=== PATIENT | male | born 1955 | race Caucasian/White ===

== ENCOUNTER → 2017-01-07 | Outpatient (REF) | payer BC, OTHER ==
[2017-01-07 12:20] LABS: BASO % 0.5 % (0.0-1.0); EOS # 0.3 K/mm3 (0.0-0.50); EOS % 3.7 % (0.0-3.0); LARGE UNSTAINED CELL # 0.3 K/mm3 (0.0-0.4); LARGE UNSTAINED CELL % 2.8 % (0.0-4.0); LYMPH # 2.8 K/mm3 (1.5-4.5); LYMPH % 28.4 % (24.0-44.0); MEAN CORPUSCULAR HEMOGLOBIN 33.1 pg (27.0-33.0); MEAN CORPUSCULAR HGB CONC 32.5 g/dl (32.0-36.5); MEAN CORPUSCULAR VOLUME 101.8 fl (80.0-96.0); MONO # 0.6 K/mm3 (0.0-0.8); MONO % 6.3 % (0.0-5.0); NEUTROPHILS # 5.2 K/mm3 (1.8-7.7); NEUTROPHILS % 58.3 % (36.0-66.0); PLATELET COUNT, AUTOMATED 183 k/mm3 (150-450); RED CELL DISTRIBUTION WIDTH 13.9 % (11.5-14.5); WHITE BLOOD COUNT 8.8 K/mm3 (4.0-10.0)
[2017-01-07 12:51] LABS: ALBUMIN 3.6 GM/DL (3.2-5.2); ALBUMIN/GLOBULIN RATIO 1.24 (1.00-1.93); ALKALINE PHOSPHATASE 116 U/L (45-117); ALT/SGPT 50 U/L (12-78); ANION GAP 8 MEQ/L (8-16); AST/SGOT 23 U/L (15-37); BILIRUBIN,TOTAL 0.4 MG/DL (0.2-1.0); BLOOD UREA NITROGEN 21 MG/DL (7-18); CALCIUM LEVEL 8.2 MG/DL (8.5-10.1); CARBON DIOXIDE LEVEL 28 MEQ/L (21-32); CHLORIDE LEVEL 105 MEQ/L (98-107); CHOLESTEROL LEVEL 154 MG/DL (<200); GLOMERULAR FILTRATION RATE > 60.0 (>56); GLUCOSE, FASTING 97 MG/DL (70-105); POTASSIUM SERUM 4.6 MEQ/L (3.5-5.1); SODIUM LEVEL 141 MEQ/L (136-145); TOTAL PROTEIN 6.5 GM/DL (6.4-8.2); TRIGLYCERIDES LEVEL 134 MG/DL (<150)
== END ==
LOC: M LABDRAW1 11:59
PROVIDERS: ATTEND Emergency Medicine
DX: L03.116 Cellulitis of left lower limb (principal); R73.01 Impaired fasting glucose; E78.2 Mixed hyperlipidemia; I10 Essential (primary) hypertension

== ENCOUNTER → 2017-07-11 | Outpatient (REF) | payer BC ==
[2017-07-11 13:05] LABS: ALBUMIN/GLOBULIN RATIO 1.11 (1.00-1.93); ALKALINE PHOSPHATASE 291 U/L (45-117); ALT/SGPT 167 U/L (12-78); ANION GAP 6 MEQ/L (8-16); AST/SGOT 50 U/L (15-37); BILIRUBIN,TOTAL 0.7 MG/DL (0.2-1.0); BLOOD UREA NITROGEN 13 MG/DL (7-18); CALCIUM LEVEL 8.9 MG/DL (8.8-10.2); CARBON DIOXIDE LEVEL 30 MEQ/L (21-32); CHLORIDE LEVEL 102 MEQ/L (98-107); CHOLESTEROL LEVEL 143 MG/DL (<200); CREATININE FOR GFR 1.19 MG/DL (0.70-1.30); GLOMERULAR FILTRATION RATE > 60.0 (>49); GLUCOSE, FASTING 110 MG/DL (80-110); POTASSIUM SERUM 4.7 MEQ/L (3.5-5.1); SODIUM LEVEL 138 MEQ/L (136-145); TOTAL PROTEIN 7.6 GM/DL (6.4-8.2); TRIGLYCERIDES LEVEL 182 MG/DL (<150)
== END ==
LOC: M LABDRAW1 09:36
PROVIDERS: ATTEND Emergency Medicine
DX: R73.01 Impaired fasting glucose (principal); I10 Essential (primary) hypertension; E78.2 Mixed hyperlipidemia

== ENCOUNTER → 2018-01-13 | Outpatient (REF) | payer BC ==
[2018-01-13 11:03] LABS: BASO # 0.1 10^3/uL (0.0-0.2); BASO % 0.6 % (0.0-1.0); EOS # 0.3 10^3/uL (0.0-0.50); EOS % 2.9 % (0.0-3.0); HEMATOCRIT 55.1 % (42.0-52.0); HEMOGLOBIN 19.1 g/dl (13.5-17.5); IMMATURE GRANULOCYTE % 0.5 % (0-3.0); LYMPH # 3.3 10^3/uL (1.5-4.5); LYMPH % 35.1 % (24.0-44.0); MEAN CORPUSCULAR HEMOGLOBIN 33.9 pg (27.0-33.0); MEAN CORPUSCULAR HGB CONC 34.7 g/dl (32.0-36.5); MEAN CORPUSCULAR VOLUME 97.9 fl (80.0-96.0); MONO # 0.6 10^3/uL (0.0-0.8); MONO % 6.9 % (0.0-5.0); PLATELET COUNT, AUTOMATED 206 10^3/uL (150-450); RED BLOOD COUNT 5.63 10^6/uL (4.30-6.10); RED CELL DISTRIBUTION WIDTH 13.8 % (11.5-14.5); WHITE BLOOD COUNT 9.3 10^3/uL (4.0-10.0)
[2018-01-13 11:20] LABS: ESTIMATED AVERAGE GLUCOSE 128 MG/DL (60-110); HEMOGLOBIN A1c 6.1 %
[2018-01-13 11:25] LABS: ALBUMIN/GLOBULIN RATIO 1.18 (1.00-1.93); ALKALINE PHOSPHATASE 116 U/L (45-117); ALT/SGPT 29 U/L (12-78); ANION GAP 7 MEQ/L (8-16); AST/SGOT 18 U/L (7-37); BILIRUBIN,TOTAL 0.8 MG/DL (0.2-1.0); BLOOD UREA NITROGEN 25 MG/DL (7-18); CALCIUM LEVEL 8.8 MG/DL (8.8-10.2); CARBON DIOXIDE LEVEL 27 MEQ/L (21-32); CHLORIDE LEVEL 103 MEQ/L (98-107); CHOLESTEROL LEVEL 186 MG/DL (<200); CHOLESTEROL RISK RATIO 4.894 (<5); CREATININE FOR GFR 1.12 MG/DL (0.70-1.30); GLOMERULAR FILTRATION RATE > 60.0 (>49); GLUCOSE, FASTING 108 MG/DL (70-100); HDL CHOLESTEROL 38 MG/DL (>40); LDL CHOLESTEROL 117.2 MG/DL (<100); NON-HDL-C 148 MG/DL; POTASSIUM SERUM 4.5 MEQ/L (3.5-5.1); SODIUM LEVEL 137 MEQ/L (136-145); TOTAL PROTEIN 7.4 GM/DL (6.4-8.2); TRIGLYCERIDES LEVEL 154 MG/DL (<150)
== END ==
LOC: M LABDRAW1 09:12
DX: L03.116 Cellulitis of left lower limb (principal); R73.01 Impaired fasting glucose; I10 Essential (primary) hypertension; E78.2 Mixed hyperlipidemia
CPT/HCPCS: 80053

== ENCOUNTER → 2018-07-17 | Outpatient (REF) | payer BC ==
[2018-07-17 11:46] LABS: BASO # 0.1 10^3/uL (0.0-0.2); BASO % 0.7 % (0.0-1.0); EOS # 0.2 10^3/uL (0.0-0.50); EOS % 2.6 % (0.0-3.0); HEMATOCRIT 50.8 % (42.0-52.0); HEMOGLOBIN 17.3 g/dl (13.5-17.5); IMMATURE GRANULOCYTE % 0.5 % (0-3.0); LYMPH # 2.5 10^3/uL (1.5-4.5); LYMPH % 30.2 % (24.0-44.0); MEAN CORPUSCULAR HEMOGLOBIN 33.7 pg (27.0-33.0); MEAN CORPUSCULAR HGB CONC 34.1 g/dl (32.0-36.5); MONO # 0.7 10^3/uL (0.0-0.8); MONO % 8.8 % (0.0-5.0); NEUTROPHILS # 4.8 10^3/uL (1.8-7.7); NEUTROPHILS % 57.2 % (36.0-66.0); PLATELET COUNT, AUTOMATED 180 10^3/uL (150-450); RED BLOOD COUNT 5.13 10^6/uL (4.30-6.10); RED CELL DISTRIBUTION WIDTH 13.8 % (11.5-14.5); WHITE BLOOD COUNT 8.3 10^3/uL (4.0-10.0)
[2018-07-17 12:48] LABS: ALBUMIN 3.6 GM/DL (3.2-5.2); ALBUMIN/GLOBULIN RATIO 1.16 (1.00-1.93); ALKALINE PHOSPHATASE 114 U/L (45-117); ALT/SGPT 25 U/L (12-78); ANION GAP 8 MEQ/L (8-16); AST/SGOT 20 U/L (7-37); BILIRUBIN,TOTAL 0.5 MG/DL (0.2-1.0); BLOOD UREA NITROGEN 25 MG/DL (7-18); CALCIUM LEVEL 8.5 MG/DL (8.8-10.2); CARBON DIOXIDE LEVEL 25 MEQ/L (21-32); CHLORIDE LEVEL 105 MEQ/L (98-107); CHOLESTEROL LEVEL 168 MG/DL (<200); CREATININE FOR GFR 1.05 MG/DL (0.70-1.30); GLOMERULAR FILTRATION RATE > 60.0 (>49); GLUCOSE, FASTING 170 MG/DL (70-100); HDL CHOLESTEROL 35 MG/DL (>40); LDL CHOLESTEROL 102 MG/DL (<100); NON-HDL-C 133 MG/DL; POTASSIUM SERUM 4.1 MEQ/L (3.5-5.1); SODIUM LEVEL 138 MEQ/L (136-145); TOTAL PROTEIN 6.7 GM/DL (6.4-8.2); TRIGLYCERIDES LEVEL 154 MG/DL (<150)
[2018-07-17 13:34] LABS: ESTIMATED AVERAGE GLUCOSE 134 MG/DL (60-110); HEMOGLOBIN A1c 6.3 %
== END ==
LOC: M LABDRAW1 11:12
DX: L03.116 Cellulitis of left lower limb (principal); R73.01 Impaired fasting glucose; I10 Essential (primary) hypertension; E78.2 Mixed hyperlipidemia
CPT/HCPCS: 80053

== ENCOUNTER → 2018-07-25 | Outpatient (REF) | payer BC | LOC: M LAB REF 09:19 | DX: Z86.010 Personal history of colon polyps (principal) | CPT/HCPCS: 87507 ==

== ENCOUNTER → 2018-07-25 | Outpatient (REF) | payer BC ==
[2018-07-27 00:07] LABS: TISSUE TRANSGLUTAMINASE IgA <2 U/mL (0-3)
== END ==
LOC: M LABDRAW1 12:17
DX: Z86.010 Personal history of colon polyps (principal)

== ENCOUNTER → 2018-08-08 | Outpatient (CLI) | payer BC | LOC: M RAD 07:27 | DX: Z12.2 Encounter for screening for malignant neoplasm of respiratory organs (principal); Z87.891 Personal history of nicotine dependence | CPT/HCPCS: G0297 ==

== ENCOUNTER 2018-09-07 08:25 | Day surgery (SDC) | payer BC ==
[~2018-09-07] VITALS: Ht 182.9 cm; Wt 127.5 kg
[~2018-09-07 08:25] MED LIST: LISI20TA PO; MULTCAP PO; NS 1,000 ML IV ONE; PROPOFOL 200 MG/20 ML VIAL As Ordered ONE; SIMV20TA2 PO
--- NOTE | 2018-09-07 10:16 | ROOR ---
Patient Name: Caleb Farley Procedure Date: 09/07/2018 9:53 AM Date of : 1955 Age: 63 [facility]: [facility] Gender: Male Note Status: Finalized Procedure: Colonoscopy Indications: High risk colon cancer surveillance: Personal history of colonic polyps, Last colonoscopy: June 2014 Providers: Curry BHARDWAJ MD Referring MD: ROSI REED MD Requesting Provider: Medicines: Monitored Anesthesia Care Complications: No immediate complications. Procedure: Pre-Anesthesia Assessment: - The heart rate, respiratory rate, oxygen saturations, blood pressure, adequacy of pulmonary ventilation, and response to care were monitored throughout the procedure. The Colonoscope was introduced through the anus and advanced to the terminal ileum, with identification of the appendiceal orifice and IC valve. The colonoscopy was performed without difficulty. The patient tolerated the procedure well. The quality of the bowel preparation was good. Findings: The perianal and digital rectal examinations were normal. Two sessile polyps were found in the sigmoid colon. The polyps were 4 to 5 mm in size. These polyps were removed with a cold snare. Resection and retrieval were complete. Internal hemorrhoids were found during retroflexion. The hemorrhoids were small. The exam was otherwise without abnormality on direct and retroflexion views. Impression: - Two 4 to 5 mm polyps in the sigmoid colon, removed with a cold snare. Resected and retrieved. - Internal hemorrhoids. - The examination was otherwise normal on direct and retroflexion views. Recommendation: - Repeat colonoscopy in 5 years for adenoma surveillance. Curry Bhardwaj MD Curry BHARDWAJ MD 09/07/2018 10:15:50 AM This report has been signed electronically. Number of Addenda: 0 Note Initiated On: 09/07/2018 9:53 AM Estimated Blood Loss: Estimated blood loss: none.
[2018-09-07 10:30] VITALS: BP 131/85
[2018-09-07] MEDS ORDERED: PROPOFOL 200 MG/20 ML VIAL As Ordered ONE (10:32)
== END 2018-09-07 10:32 | disposition home or self-care (01) ==
LOC: M OPP 08:25
PROVIDERS: ATTEND Internal Medicine Gastroenterology
DX: D12.5 Benign neoplasm of sigmoid colon (principal); K64.8 Other hemorrhoids; Z86.010 Personal history of colon polyps

== ENCOUNTER → 2019-01-15 | Outpatient (REF) | payer BC ==
[~2019-01-15] MED LIST changes: -NS 1,000 ML IV ONE; -PROPOFOL 200 MG/20 ML VIAL As Ordered ONE
[2019-01-15 11:57] LABS: BASO # 0.1 10^3/uL (0.0-0.2); BASO % 0.6 % (0.0-1.0); EOS # 0.2 10^3/uL (0.0-0.50); EOS % 2.4 % (0.0-3.0); HEMATOCRIT 53.7 % (42.0-52.0); HEMOGLOBIN 18.3 g/dl (13.5-17.5); LYMPH # 3.4 10^3/uL (1.5-4.5); LYMPH % 35.5 % (24.0-44.0); MEAN CORPUSCULAR HEMOGLOBIN 33.6 pg (27.0-33.0); MEAN CORPUSCULAR HGB CONC 34.1 g/dl (32.0-36.5); MEAN CORPUSCULAR VOLUME 98.7 fl (80.0-96.0); MONO # 0.7 10^3/uL (0.0-0.8); MONO % 7.5 % (0.0-5.0); NEUTROPHILS # 5.2 10^3/uL (1.8-7.7); NEUTROPHILS % 53.6 % (36.0-66.0); PLATELET COUNT, AUTOMATED 207 10^3/uL (150-450); RED BLOOD COUNT 5.44 10^6/uL (4.30-6.10); WHITE BLOOD COUNT 9.7 10^3/uL (4.0-10.0)
[2019-01-15 12:26] LABS: ALBUMIN 3.9 GM/DL (3.2-5.2); ALT/SGPT 26 U/L (12-78); BILIRUBIN,TOTAL 0.6 MG/DL (0.2-1.0); BLOOD UREA NITROGEN 23 MG/DL (7-18); CALCIUM LEVEL 8.6 MG/DL (8.8-10.2); CARBON DIOXIDE LEVEL 29 MEQ/L (21-32); CHLORIDE LEVEL 103 MEQ/L (98-107); CHOLESTEROL LEVEL 184 MG/DL (<200); CHOLESTEROL RISK RATIO 5.411 (<5); CREATININE FOR GFR 1.17 MG/DL (0.70-1.30); GLOMERULAR FILTRATION RATE > 60.0 (>49); GLUCOSE, FASTING 99 MG/DL (70-100); HDL CHOLESTEROL 34 MG/DL (>40); LDL CHOLESTEROL 109 MG/DL (<100); NON-HDL-C 150 MG/DL; POTASSIUM SERUM 4.7 MEQ/L (3.5-5.1); SODIUM LEVEL 135 MEQ/L (136-145); TRIGLYCERIDES LEVEL 207 MG/DL (<150)
[2019-01-15 13:54] LABS: HEMOGLOBIN A1c 6.5 %
== END ==
LOC: M LABDRAW1 11:41
PROVIDERS: ATTEND Emergency Medicine
DX: L03.116 Cellulitis of left lower limb (principal); R73.01 Impaired fasting glucose; I10 Essential (primary) hypertension; E78.2 Mixed hyperlipidemia

== ENCOUNTER 2019-03-19 08:01 | Emergency (ER) | payer BC ==
[~2019-03-19] VITALS: Ht 172.7 cm; Wt 134.0 kg
[2019-03-19] MEDS ORDERED: ASPIRIN 81 MG CHEW TABLET PO ONE (08:30)
--- NOTE | 2019-03-19 08:36 | REP ---
Portable chest, 08:20 a.m., 03/19/2019, single AP view with the patient upright: Comparison is the low-dose lung screening chest CT dated 08/08/2018. There are no other comparison studies. There is diffuse bilateral interstitial coarsening as an interval change, compatible with interstitial infiltrates. There are no pleural effusions. There are no focal infiltrates. Cardiac size is normal. The shun, mediastinum, skeletal structures are unremarkable. Impression: Diffuse bilateral interstitial coarsening as a change from the comparison chest CT, compatible with interstitial infiltrates. Electronically Signed by Dexter Ulloa MD 03/19/2019 08:27 A
[2019-03-19 08:40] LABS: BASO # 0.1 10^3/uL (0.0-0.2); BASO % 0.4 % (0.0-1.0); EOS # 0.1 10^3/uL (0.0-0.50); EOS % 0.6 % (0.0-3.0); HEMATOCRIT 48.1 % (42.0-52.0); HEMOGLOBIN 16.2 g/dl (13.5-17.5); LYMPH # 2.7 10^3/uL (1.5-4.5); LYMPH % 15.2 % (24.0-44.0); MEAN CORPUSCULAR HEMOGLOBIN 33.1 pg (27.0-33.0); MEAN CORPUSCULAR HGB CONC 33.7 g/dl (32.0-36.5); MEAN CORPUSCULAR VOLUME 98.4 fl (80.0-96.0); MONO # 1.3 10^3/uL (0.0-0.8); MONO % 7.1 % (0.0-5.0); NEUTROPHILS # 13.6 10^3/uL (1.8-7.7); NEUTROPHILS % 76.1 % (36.0-66.0); PLATELET COUNT, AUTOMATED 212 10^3/uL (150-450); RED BLOOD COUNT 4.89 10^6/uL (4.30-6.10); WHITE BLOOD COUNT 17.8 10^3/uL (4.0-10.0)
[2019-03-19] MEDS ORDERED: FUROSEMIDE 40 MG/4 ML VIAL (J1940) IV ONE (08:45)
[2019-03-19 08:50] LABS: INR 1.04; PROTHROMBIN TIME 13.3 SECONDS (11.8-14.0)
[2019-03-19 08:51] LABS: PARTIAL THROMBOPLASTIN TIME 31.5 SECONDS (25.0-38.4)
--- NOTE | 2019-03-19 09:32 | REP ---
Right lower extremity deep vein duplex ultrasound: The patient complains of shortness of breath for 6 months becoming worse over the past week and right lower extremity swelling. The right lower extremity deep veins demonstrate normal compression, normal Doppler color flow and normal Doppler waveforms with respiration and augmentation from the popliteal vein to the common femoral vein. Impression: There is no right lower extremity deep vein thrombus. Electronically Signed by Dexter Ulloa MD 03/19/2019 09:24 A
[2019-03-19 09:34] LABS: ALBUMIN 3.7 GM/DL (3.2-5.2); BILIRUBIN,TOTAL 0.8 MG/DL (0.2-1.0); CALCIUM LEVEL 8.7 MG/DL (8.8-10.2); CK-MB VALUE MASS 20.8 NG/ML (<3.6); CREATININE FOR GFR 1.33 MG/DL (0.70-1.30); MB/CK RELATIVE INDEX 10.05 (< OR =4); POTASSIUM SERUM 4.4 MEQ/L (3.5-5.1); TOTAL PROTEIN 7.8 GM/DL (6.4-8.2); TROPONIN I 2.23 NG/ML (< 0.10)
[2019-03-19] MEDS ORDERED: HEPARIN SOD (PORCINE) 5000 UNITS/ML VIAL IV ONE (09:45)
[2019-03-19] MEDS ORDERED: HEPARIN DRIP 25,000 UNITS in APPROPRIATE DILUENT 1 EA IV SCH (10:00)
[2019-03-19] MEDS ORDERED: CLOPIDOGREL 300 MG TAB (PLAVIX) PO STA (10:08)
[2019-03-19] MEDS ORDERED: fentaNYL 100 MCG/2 ML INJECTION (J3010) IV ONE (10:45)
[2019-03-19 11:45] VITALS: BP 99/51
--- NOTE | 2019-03-22 05:41 | ECGEPIP ---
[facility] - ED Test Date: 2019-03-19 Pat Name: IFTIKHAR DUMONT Department: Room: - Gender: Male Referral Nurse: TAZ : 1955 Requested By: Heri Carbone Order Number: [id number] Reading MD: Heri Hanks Measurements Intervals [place] Rate: 106 P: MO: -1 QRS: QRSD: 147 T: 42 QT: 376 QTc: 500 Interpretive Statements ATRIAL FIBRILLATION WITH RAPID VENTRICULAR RESPONSE LEFT BUNDLE BRANCH BLOCK BASELINE ARTIFACT AFFECTS INTERPRETATION NO PRIORS FOR COMPARISON Electronically Signed on 03-22-2019 5:41:23 EDT by Heri Hanks
== END 2019-03-19 11:55 | disposition short-term general hospital (02) ==
LOC: M ED 08:01
DX: I21.4 Non-ST elevation (NSTEMI) myocardial infarction (principal); I44.7 Left bundle-branch block, unspecified; I48.91 Unspecified atrial fibrillation; I50.9 Heart failure, unspecified; M79.89 Other specified soft tissue disorders; I11.0 Hypertensive heart disease with heart failure; E78.5 Hyperlipidemia, unspecified; F17.210 Nicotine dependence, cigarettes, uncomplicated; Z79.899 Other long term (current) drug therapy
CPT/HCPCS: 36415; 71045; 80053; 82550; 82553; 83690; 83880; 84484; 85025; 85610; 85730; 93005; 93041; 93971; 94760; 96374; 96375; 99285; J1940; J3010

== ENCOUNTER 2019-04-05 18:10 | Inpatient (IN) | payer BC ==
[~2019-04-05] VITALS: Ht 175.3 cm; Wt 127.8 kg
[2019-04-05] MEDS ORDERED: ONDANSETRON 4 MG TAB (S0181) PO PRN (18:30)
[2019-04-05] MEDS ORDERED: ALPRAZolam 0.25 MG TAB PO PRN (18:30)
[2019-04-05] MEDS ORDERED: ACETAMINOPHEN TAB 650MG DOSE (2X325MG) PO PRN (18:30)
[2019-04-05 18:50] VITALS: BP 113/51
[2019-04-05] MEDS ORDERED: ACET1TAB55 PO (20:43)
[2019-04-05] MEDS ORDERED: CLOT10TR PO (20:43)
[2019-04-05] MEDS ORDERED: DIGO0.12 PO (20:43)
[2019-04-05] MEDS ORDERED: ALPR0.25 PO (20:43)
[2019-04-05] MEDS ORDERED: ECOT81TA5 PO (20:43)
[2019-04-05] MEDS ORDERED: AMIO200T PO (20:43)
[2019-04-05] MEDS ORDERED: ASCO500T PO (20:43)
[2019-04-05] MEDS ORDERED: FERR325T16 PO (20:43)
[2019-04-05] MEDS ORDERED: MM S100C PO (20:43)
[2019-04-05] MEDS ORDERED: POTA10TA17 PO (20:46)
[2019-04-05] MEDS ORDERED: WARF-20 PO (20:46)
[2019-04-05] MEDS ORDERED: NICO21DI37 TD (20:46)
[2019-04-05] MEDS ORDERED: FURO20TA2 PO (20:46)
[2019-04-05] MEDS ORDERED: METO1TAB87 PO (20:46)
[2019-04-05] MEDS ORDERED: FOLI1TAB11 PO (20:46)
[2019-04-05] MEDS: SENNA 8.6 MG TAB (SENOKOT) PO SCH (21:00)
[2019-04-05] MEDS ORDERED: WARFARIN SOD 4 MG TAB PO ONE (21:00)
[2019-04-05] MEDS: DOCUSATE SODIUM 100 MG CAP PO SCH (21:00)
[2019-04-05 22:00] VITALS: BP 132/61
[2019-04-05] MEDS: traZODone 50 MG TAB PO SCH (22:39)
[2019-04-05] MEDS: SIMVASTATIN 20 MG TAB PO SCH (22:39)
[2019-04-05] MEDS: METOPROLOL TART 25 MG TABLET PO SCH (22:41)
[2019-04-05] MEDS: FERROUS GLUCONATE 324 MG TAB PO SCH (22:42)
[2019-04-05] MEDS: CLOTRIMAZOLE 10 MG TROCHE PO SCH (22:43)
[2019-04-06 06:00] VITALS: BP 113/52
[2019-04-06] MEDS: CLOTRIMAZOLE 10 MG TROCHE PO SCH ×5 (06:20→21:22)
[2019-04-06 07:08] LABS: BASO # 0.1 10^3/uL (0.0-0.2); BASO % 0.7 % (0.0-1.0); EOS # 0.2 10^3/uL (0.0-0.50); EOS % 2.4 % (0.0-3.0); HEMATOCRIT 26.6 % (42.0-52.0); HEMOGLOBIN 8.4 g/dl (13.5-17.5); LYMPH # 1.9 10^3/uL (1.5-4.5); LYMPH % 21.4 % (24.0-44.0); MEAN CORPUSCULAR HEMOGLOBIN 32.1 pg (27.0-33.0); MEAN CORPUSCULAR HGB CONC 31.6 g/dl (32.0-36.5); MEAN CORPUSCULAR VOLUME 101.5 fl (80.0-96.0); MONO # 0.7 10^3/uL (0.0-0.8); MONO % 7.5 % (0.0-5.0); NEUTROPHILS # 6.1 10^3/uL (1.8-7.7); PLATELET COUNT, AUTOMATED 462 10^3/uL (150-450); RED BLOOD COUNT 2.62 10^6/uL (4.30-6.10); WHITE BLOOD COUNT 9.1 10^3/uL (4.0-10.0)
[2019-04-06 07:18] LABS: INR 1.94; PROTHROMBIN TIME 21.9 SECONDS (11.8-14.0)
[2019-04-06 07:31] LABS: ALBUMIN 2.8 GM/DL (3.2-5.2); BILIRUBIN,TOTAL 0.5 MG/DL (0.2-1.0); CALCIUM LEVEL 8.1 MG/DL (8.8-10.2); CREATININE FOR GFR 1.81 MG/DL (0.70-1.30); GLOMERULAR FILTRATION RATE 40.6 (>49); POTASSIUM SERUM 4.1 MEQ/L (3.5-5.1); TOTAL PROTEIN 6.5 GM/DL (6.4-8.2)
[2019-04-06] MEDS: PANTOPRAZOLE 40MG TAB (PROTONIX) PO SCH (08:34)
[2019-04-06] MEDS: ASCORBIC ACID 500 MG TAB PO SCH (08:34)
[2019-04-06] MEDS: ASPIRIN 81 MG CHEW TABLET PO SCH (08:34)
[2019-04-06] MEDS: FOLIC ACID 1 MG TAB PO SCH (08:34)
[2019-04-06] MEDS: FERROUS GLUCONATE 324 MG TAB PO SCH ×2 (08:35→21:22)
[2019-04-06] MEDS: POTASSIUM CHLORIDE 10 MEQ SR TABLET PO SCH (08:35)
[2019-04-06] MEDS: AMIODARONE 200 MG TAB (PACERONE) PO SCH (08:35)
[2019-04-06] MEDS: DOCUSATE SODIUM 100 MG CAP PO SCH ×2 (08:35→21:00)
[2019-04-06] MEDS: METOPROLOL TART 25 MG TABLET PO SCH ×2 (08:36→21:22)
[2019-04-06] MEDS: NICOTINE 21MG/24HR 1 EA TRANSDERMAL TD SCH (08:37)
[2019-04-06] MEDS ORDERED: FUROSEMIDE 40 MG TAB PO SCH (09:00)
--- NOTE | 2019-04-06 09:41 | CR.PDOC ---
General Date of Consultation: Apr 06, 2019 Referring Provider: JOHN PAUL FLYNN MD Attending Physician: JUSTIN CLARKE MD Consultation REASON FOR CONSULTATION/CHIEF COMPLAINT: Medical management HISTORY OF PRESENT ILLNESS: Patient is a 64-year-old male, past medical history significant for heavy nicotine dependence, hypertension, hyperlipidemia, obesity, who 2 weeks ago woke up with severe weakness and found to have had an acute myocardial infarction. He was emergently taken to [facility] in [place] where he had surgical intervention with quadruple bypass. Hospitalization was complicated by prolonged intubation, extubated after 12 days, ICU stay, Impala and pacemaker placement. Patient also did develop atrial fibrillation postoperatively. He was discharged to this facility for continuation of cardiac rehabilitation prior to final discharge home. On assessment today he has no complaints other than oral thrush. He denies chest pain, shortness of breath, weakness. He does report some swelling to bilateral lower extremities which has been since surgery. ALLERGIES: Please see below. HOME MEDICATIONS: Please see below. PAST MEDICAL HISTORY: 1. Hypertension 2. Hyperlipidemia 3. Nicotine dependence 4. CAD S/P CABG 5. Obesity PAST SURGICAL HISTORY: 1. 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 PHYSICAL EXAMINATION: GENERAL: obese male NAD SKIN : Warm, Ventral surgical incision site without induration, drainage, erythema. Edges well approximated. HEENT: Atraumatic, normocephalic, PERRL, moist mucous membrane CARDIOVASCULAR: Regular rate and rhythm, S1S2, no JVD, BLE 3+ edema, distal pulses not palpable RESP: posterior inspiratory crackles, no accessory muscle use noted ABDOMEN: BS+ non distended non tender MS: no joint deformities NEURO: Alert and oriented x 3, CN2-12 grossly intact PSYCH: no anxiety or agitation, appropriate mood and affect. LABORATORY DATA: Please see below. ASSESSMENT/PLAN: CAD, S/P quadruple bypass -With recent myocardial infarction and findings of multivessel disease requiring surgical revascularization -Status post complicated hospitalization with prolonged ICU stay -Discharged to inpatient rehabilitation unit for mobilization, strengthening, rehabilitation -Management by primary team -CAD risk factor modifications with statin, beta kacey Paroxysmal atrial fibrillation -Continue amiodarone for rhythm control and warfarin for anticoagulation therapy -Currently maintaining sinus rhythm -INR 1.9 today -Monitor INR daily Chronic kidney disease stage III -GFR 40 with elevated creatinine -Cautious diuresis -Avoid nephrotoxic medications -Renal monitoring with treatments Anemia -Hgb currently at 8, which may be hemodilutional given volume overload -monitor hgb -transfuse if less than 8 or hemodynamic compromise Thrush -Oral hygiene with antifungal medication Acute Systolic heart failure -Likely due to recent myocardial infarction and surgery -Fluid restriction 1500 mL daily -Continue Lasix -Monitoring of electrolytes to keep potassium greater than 4, magnesium greater than 2 -Monitoring of renal function with diureses Ischemic Cardiomyopathy -EF 30% -fluid restriction 1500cc/day -daily weights -strict input/output, cardiac diet Hypertension -Continue Lasix, metoprolol titrate, volume management -Blood pressure monitoring per unit protocol DVT prophylaxis -fully anticoagulated with Coumadin Vital Signs/I&O Vital Signs Date Time Temp Pulse Resp B/P (MAP) Pulse Ox O2 Delivery O2 Flow Rate FiO2 04/06/19 08:36 63 113/52 04/06/19 06:00 97.8 16 99 I&O- Last 24 Hours up to 6 AM 04/06/19 06:00 Intake Total 1000 ml Balance 1000 ml Laboratory Data Labs 24H Laboratory Tests 2 04/05/19 20:23: Bedside Glucose (Misc Panel) 152H 04/06/19 05:58: Bedside Glucose (Misc Panel) 92 04/06/19 06:49: Immature Granulocyte % (Auto) 1.0, White Blood Count 9.1, Red Blood Count 2.62L, Hemoglobin 8.4L, Hematocrit 26.6L, Mean Corpuscular Volume 101.5H, Mean C orpuscular Hemoglobin 32.1, Mean Corpuscular Hemoglobin Concent 31.6L, Red Cell Distribution Width 16.3H, Platelet Count 462H, Neutrophils (%) (Auto) 67.0H, Lymphocytes (%) (Auto) 21.4L, Monocytes (%) (Auto) 7.5H, Eosinophils (%) (Auto) 2.4, Basophils (%) (Auto) 0.7, Neutrophils # (Auto) 6.1, Lymphocytes # (Auto) 1.9, Monocytes # (Auto) 0.7, Eosinophils # (Auto) 0.2, Basophils # (Auto) 0.1, Nucleated Red Blood Cells % (auto) 0.0, Prothrombin Time 21.9H, Prothromb Time International Ratio 1.94, Anion Gap 6L, Glomerular Filtration Rate 40.6L, Blood Urea Nitrogen 28H, Creatinine 1.81H, Sodium Level 140, Potassium Level 4.1, Chloride Level 105, Carbon Dioxide Level 29, Calcium Level 8.1L, Aspartate Amino Transf (AST/SGOT) 24, Alanine Aminotransferase (ALT/SGPT) 37, Alkaline Phosphatase 104, Total Bilirubin 0.5, Total Protein 6.5, Albumin 2.8L, Albumin/Globulin Ratio 0.76L CBC/BMP Laboratory Tests 04/06/19 06:49 Red Blood Count 2.62 L, Mean Corpuscular Volume 101.5 H, Mean Corpuscular Hemoglobin 32.1, Mean Corpuscular Hemoglobin Concent 31.6 L, Red Cell Distribution Width 16.3 H, Neutrophils (%) (Auto) 67.0 H, Lymphocytes (%) (Auto) 21.4 L, Monocytes (%) (Auto) 7.5 H, Eosinophils (%) (Auto) 2.4, Basophils (%) (Auto) 0.7, Neutrophils # (Auto) 6.1, Lymphocytes # (Auto) 1.9, Monocytes # (Auto) 0.7, Eosinophils # (Auto) 0.2, Basophils # (Auto) 0.1, Calcium Level 8.1 L, Aspartate Amino Transf (AST/SGOT) 24, Alanine Aminotransferase (ALT/SGPT) 37, Alkaline Phosphatase 104, Total Bilirubin 0.5, Total Protein 6.5, Albumin 2.8 L Allergies Coded Allergies: No Known Allergies (Unverified , 08/24/18) Home Medications Scheduled Amiodarone HCl (Amiodarone HCl) 200 Mg Tablet, 400 MG PO DAILY, (Reported) TO TAKE X 7 DAYS Amiodarone HCl (Amiodarone HCl) 200 Mg Tablet, 200 MG PO DAILY, (Reported) TO TAKE X 3 WEEKS AFTER 7 DAYS OF 400MG DOSE Ascorbic Acid (Ascorbic Acid) 500 Mg Tablet, 500 MG PO DAILY, (Reported) Aspirin (Ecotrin) 81 Mg Tablet.dr, 81 MG PO DAILY, (Reported) Clotrimazole (Clotrimazole) 10 Mg Nita, 10 MG PO 5XD, (Reported) TO TAKE X 7 DAYS Digoxin (Digoxin) 125 Mcg Tablet, 125 MCG PO Q2D, (Reported) Ferrous Gluconate (Ferrous Gluconate) 324 Mg Tablet, 324 MG PO BID, (Reported) Folic Acid (Folic Acid) 1 Mg Tablet, 1 MG PO DAILY, (Reported) Furosemide (Furosemide) 20 Mg Tablet, 40 MG PO DAILY, (Reported) TO TAKE X 3 DAYS Furosemide (Furosemide) 20 Mg Tablet, 20 MG PO DAILY, (Reported) TO START AFTER 3 DAYS OF 4OMG DOSE Metoprolol Tartrate (Metoprolol Tartrate) 25 Mg Tablet, 25 MG PO BID, (Reported) Multivitamin (Multivitamins) 1 Cap Cap, 1 CAP PO DAILY, (Reported) Nicotine (Nicotine Patch) 21 Mg Patch.td24, 21 MG TD DAILY, (Reported) Potassium Chloride (Potassium Chloride) 10 Meq Tab.er.prt, 10 MEQ PO DAILY, (Reported) Simvastatin (Simvastatin) 20 Mg Tab, 20 MG PO DAILY, (Reported) Warfarin Sodium (Warfarin Sodium) 4 Mg Tablet, 4 MG PO QHS, (Reported) Scheduled PRN Acetaminophen (Acetaminophen) 325 Mg Tablet, 650 MG PO Q4H PRN for FEVER, (Reported) Alprazolam (Alprazolam) 0.25 Mg Tablet, 0.25 MG PO QHS PRN for SLEEP, (Reported) Docusate Sodium (Stool Softener) 100 Mg Capsule, 100 MG PO BID PRN for CONSTIPATION, (Reported) GIOVANI [employer] Apr 06, 2019 09:41
[2019-04-06] MEDS: MULTIVITAMINS/MINERALS THERAP 1 TAB PO SCH (12:10)
[2019-04-06 14:00] VITALS: BP 118/52
--- NOTE | 2019-04-06 14:18 | HPEPDOC ---
Management Nurse Rn Note DATE OF ADMISSION: 04/05/19 SOURCE OF ADMISSION INFORMATION: patient and [facility] records CHIEF COMPLAINT: s/p CABG HISTORY OF PRESENT ILLNESS: 64M pmh morbid obesity, unstable angina, systolic HCf with EF 30-35% tobacco abuse, HTN, HTN, admitted to [facility] on 03/19/19 for an urgent cardiac catheterization with Impella placement in the setting of an NSTEMI. He underwent CABG x4 vessels on 03/20/19 and was managed post-operatively in the ICU for card iogenic shock requiring multiple pressors and respiratory failure requiring mechanical ventilation. He developed atrial fibrillation and was unable to be cardioverted. Later he had post-op ileus for which he was made NPO and a rectal tube was placed. He had suspected intra-abdominal infection and treated with antibiotics, however blood cultures were negative. His INR was monitored with the addition of Coumadin for his new onset Afib. He had persistent leukocytosis with a wbc count of 11.1 and anemia with a Hgb of 8.1 on 04/05/19. His ROQUE-I medication was held due to worsening kidney function with ROLAND. He was evaluated by therapy and noted to have dizziness with ambulation which he reports is chronic in nature. He was also noted to be overall weaker and deemed medically appropriate for discharge to ARU on 04/05/19. REVIEW OF SYSTEMS: The following is a completed review of systems and has been reviewed. Review of systems otherwise unremarkable. PAIN: Patient self reports no pain EYES: No recent vision changes EARS, NOSE, & THROAT: No throat pain, or dysphagia, or rhinorrhea CARDIOVASCULAR: Denies chest pain or palpitations PULMONARY: Denies shortness of breath GASTROINTESTINAL: Denies constipation/diarrhea GENITOURINARY: denies dysuria MUSCULOSKELETAL: weakness NEUROLOGICAL:no tremor or seizure activity HEMATOLOGICAL: +anemia SKIN: sternotomy PSYCHIATRIC: Unremarkable All other review of systems found to be negative. PAST MEDICAL HISTORY: as per HPI PAST SURGICAL HISTORY: CABGx4 ALLERGIES: Please see below. MEDICATIONS: Please see below. FAMILY HISTORY: non-contributory SOCIAL HISTORY: 3-pack a day smoker, lives alone, no ETOH DIET: Cardiac PHYSICAL EXAMINATION: VITAL SIGNS: Please see below. GENERAL: Pleasant and cooperative. No acute distress. HEENT: PERRL. Extraocular movements intact. Clear conjunctiva CARDIOVASCULAR: Irregular rate and rhythm. No murmurs, rubs, or gallops LUNGS: Clear to auscultation bilaterally. No wheezes. No rhonchi ABDOMEN: Soft, nontender, nondistended. Positive bowel sounds. Normal active bowel sounds NEUROLOGICAL: Alert and oriented times three. Cranial nerves II through XII grossly intact. Sensation grossly intact EXTREMITIES: 5\5 strength bilateral upper extremities. 5\5 strength right lower extremity. 5/5 strength in left lower extremity. SKIN: sternotomy incision c/d/i LABORATORY DATA: Please see below. IMAGING:Imaging documentation personally reviewed by record FUNCTIONAL STATUS: Premorbid: Independent with all activities of daily life as well as mobility On Admission: contact guard for ambulation with RW, min assist for bathing, toileting, dressing GOALS: Independent without an AD for community distances, stairs, functional transfers, bathing, dressing, toileting, medical optimization, assess for DMEs ASSESSMENT:64-year-old M with past medical history of HTN, HLD who presents status post emergnt CABG x4 with cardiogenic shock and respiratory failure requiring prolonged mechanical ventilation PLAN: 1. Rehab: PT- improve endurance, maintain LE ROM, energy conservation -OT limit UE strengthening, work on ADL tasks and use of adaptive equipment if necessary while maintaining sternal precautions - HR max 115-125 bpm 2. Neuro: recent cardiogenic shock, avoid deliriogenic agents 3. Cardio: s/p anterior wall NSTEMI requiring urgent CABG x4 with systolic CHF- continue diuretic, ASa and Plavix- ROQUE on hold until ROLAND resolves- medicine consulted to assist with management -Afib- c/u digoxin, amiodarone, and Coumadin- daily INR goal 2-3 -HLD- c/u statin -will refer to outpatient cardiac rehab -f/u with Dr. Almanza in 2-3 weeks - f/u Dr. Lechuga April 19, 9:45 (cardiothoracic surgeon) 4. Resp: monitor for infection, heavy smoker, c/u breathing treatments and nicoderm patch 5. renal: recent ROLAND, will monitor 6. GI ppx protonix 7. DVT ppx: on Coumadin, TEDs 8. Pain: tylneol prn 9. ID: oral thrush c/u oral antifungal 10. Dispo: TBD POST ADMISSION PHYSICIAN EVALUATION: Medical and functional status: Description of medical status, medical assessment: As above. Rehabilitation diagnosis and current and prior cold morbid medical conditions as above. Risk of complications and plans to mitigate them as above. Description of functional status current status is as above. Prior status as above. Status compared to preadmission: There are no clinically significant differences between the patient's current status and the information described on the preadmission screening document. Treatment plan anticipated: Treatment plan is as described above. Required disciplines including physical therapy, occupational therapy, others as noted above. Intensity of services: 3 hours a day, 6 days a week. Special considerations: There are no specific special or safety considerations that would likely preclude immediate implementation of an intensive rehabilitation program or subsequently influence the plan of care ATTESTATION: Considering all the information above, it is my best judgment that this patient requires intensive rehabilitation therapy as described above and an inpatient hospital environment due to the complexity of nursing, medical, and rehabilitation needs required by the patient. Furthermore, this patient can reasonably be expected to participate in an benefit from an inpatient rehabilitation stay with an interdisciplinary team approach to the delivery of rehabilitation care under the direction and supervision of rehabilitation physician PROGNOSIS: Excellent ESTIMATED LENGTH OF STAY:8-10 days. PROJECTED DISCHARGE DESTINATION: Home with family support and any durable medical equipment required to increase functional safety and mobility TIME SPENT COUNSELING AND COORDINATING INITIAL CARE: Greater than 70 minutes. Vital Signs Vital Sign - Last 24 Hours 04/05/19 04/05/19 04/05/19 04/06/19 18:50 22:00 22:41 06:00 Temp 98.1 98.9 97.8 Pulse 68 71 71 63 Resp 18 16 16 B/P (MAP) 113/51 (71) 132/61 (84) 132/61 113/52 (72) Pulse Ox 99 94 99 04/06/19 08:36 Pulse 63 B/P (MAP) 113/52 Laboratory Data CBC/BMP Laboratory Tests 04/06/19 06:49 Red Blood Count 2.62 L, Mean Corpuscular Volume 101.5 H, Mean Corpuscular Hemoglobin 32.1, Mean Corpuscular Hemoglobin Concent 31.6 L, Red Cell Distribution Width 16.3 H, Neutrophils (%) (Auto) 67.0 H, Lymphocytes (%) (Auto) 21.4 L, Monocytes (%) (Auto) 7.5 H, Eosinophils (%) (Auto) 2.4, Basophils (%) (Auto) 0.7, Neutrophils # (Auto) 6.1, Lymphocytes # (Auto) 1.9, Monocytes # (Auto) 0.7, Eosinophils # (Auto) 0.2, Basophils # (Auto) 0.1, Calcium Level 8.1 L, Aspartate Amino Transf (AST/SGOT) 24, Alanine Aminotransferase (ALT/SGPT) 37, Alkaline Phosphatase 104, Total Bilirubin 0.5, Total Protein 6.5, Albumin 2.8 L Labs 24H Laboratory Tests 2 04/05/19 20:23: Bedside Glucose (Misc Panel) 152H 04/06/19 05:58: Bedside Glucose (Misc Panel) 92 04/06/19 06:49: Immature Granulocyte % (Auto) 1.0, White Blood Count 9.1, Red Blood Count 2.62L, Hemoglobin 8.4L, Hematocrit 26.6L, Mean Corpuscular Volume 101.5H, Mean Corpuscular Hemoglobin 32.1, Mean Corpuscular Hemoglobin Concent 31.6L, Red Cell Distribution Width 16.3H, Platelet Count 462H, Neutrophils (%) (Auto) 67.0H, Lymphocytes (%) (Auto) 21.4L, Monocytes (%) (Auto) 7.5H, Eosinophils (%) (Auto) 2.4, Basophils (%) (Auto) 0.7, Neutrophils # (Auto) 6.1, Lymphocytes # (Auto) 1.9, Monocytes # (Auto) 0.7, Eosinophils # (Auto) 0.2, Basophils # (Auto) 0.1, Nucleated Red Blood Cells % (auto) 0.0, Prothrombin Time 21.9H, Prothromb Time International Ratio 1.94, Anion Gap 6L, Glomerular Filtration Rate 40.6L, Blood Urea Nitrogen 28H, Creatinine 1.81H, Sodium Level 140, Potassium Level 4.1, Chloride Level 105, Carbon Dioxide Level 29, Calcium Level 8.1L, Aspartate Amino Transf (AST/SGOT) 24, Alanine Aminotransferase (ALT/SGPT) 37, Alkaline Phosphatase 104, Total Bilirubin 0.5, Total Protein 6.5, Albumin 2.8L, Albumin/Globulin Ratio 0.76L FSBS Laboratory Tests Test 04/05/19 20:23 04/06/19 05:58 Range/Units Bedside Glucose (Misc Panel) 152 92 80-115 MG/DL Home Medications Scheduled Amiodarone HCl (Amiodarone HCl) 200 Mg Tablet, 400 MG PO DAILY, (Reported) TO TAKE X 7 DAYS Amiodarone HCl (Amiodarone HCl) 200 Mg Tablet, 200 MG PO DAILY, (Reported) TO TAKE X 3 WEEKS AFTER 7 DAYS OF 400MG DOSE Ascorbic Acid (Ascorbic Acid) 500 Mg Tablet, 500 MG PO DAILY, (Reported) Aspirin (Ecotrin) 81 Mg Tablet.dr, 81 MG PO DAILY, (Reported) Clotrimazole (Clotrimazole) 10 Mg Nita, 10 MG PO 5XD, (Reported) TO TAKE X 7 DAYS Digoxin (Digoxin) 125 Mcg Tablet, 125 MCG PO Q2D, (Reported) Ferrous Gluconate (Ferrous Gluconate) 324 Mg Tablet, 324 MG PO BID, (Reported) Folic Acid (Folic Acid) 1 Mg Tablet, 1 MG PO DAILY, (Reported) Furosemide (Furosemide) 20 Mg Tablet, 40 MG PO DAILY, (Reported) TO TAKE X 3 DAYS Furosemide (Furosemide) 20 Mg Tablet, 20 MG PO DAILY, (Reported) TO START AFTER 3 DAYS OF 4OMG DOSE Metoprolol Tartrate (Metoprolol Tartrate) 25 Mg Tablet, 25 MG PO BID, (Reported) Multivitamin (Multivitamins) 1 Cap Cap, 1 CAP PO DAILY, (Reported) Nicotine (Nicotine Patch) 21 Mg Patch.td24, 21 MG TD DAILY, (Reported) Potassium Chloride (Potassium Chloride) 10 Meq Tab.er.prt, 10 MEQ PO DAILY, (Reported) Simvastatin (Simvastatin) 20 Mg Tab, 20 MG PO DAILY, (Reported) Warfarin Sodium (Warfarin Sodium) 4 Mg Tablet, 4 MG PO QHS, (Reported) Scheduled PRN Acetaminophen (Acetaminophen) 325 Mg Tablet, 650 MG PO Q4H PRN for FEVER, (Reported) Alprazolam (Alprazolam) 0.25 Mg Tablet, 0.25 MG PO QHS PRN for SLEEP, (Reported) Docusate Sodium (Stool Softener) 100 Mg Capsule, 100 MG PO BID PRN for CONSTIPATION, (Reported) Allergies Coded Allergies: No Known Allergies (Unverified , 08/24/18) A-FIB/CHADSVASC A-FIB History Current/History of A-Fib/PAF?: Yes Current PO Anticoag Therapy: Yes JOHN PAUL FLYNN MD Apr 06, 2019 14:18
--- NOTE | 2019-04-06 15:07 | REP ---
Chest x-ray: Two views. History: CHF. Comparison chest x-ray: March 19, 2019. Findings: The patient is status post prior median sternotomy and a left atrial appendage clip is visible over the left heart. The heart is not felt to be enlarged. Pulmonary vasculature is not increased. There is slight blunting of the right lateral and both posterior pleural angles however. Mild fissural fluid is seen. Impression: Small bilateral pleural effusions. Status post median sternotomy. Left atrial appendage clamp. Surgery in the interval since March 19, 2019 prior chest x-ray. Mild CHF pattern. Electronically Signed by Jorje Brush MD 04/06/2019 08:18 P
[2019-04-06] MEDS ORDERED: IPRATROPIUM 0.5MG/ALBUTEROL 2.5MG INH SOL UD 3ML (DUONEB)(J7620) NEB PRN (15:45)
[2019-04-06] MEDS: WARFARIN SOD 4 MG TAB PO SCH (17:10)
[2019-04-06 20:00] VITALS: BP 128/60
[2019-04-06] MEDS: SENNA 8.6 MG TAB (SENOKOT) PO SCH (21:00)
[2019-04-06] MEDS: IPRATROPIUM 0.5MG/ALBUTEROL 2.5MG INH SOL UD 3ML (DUONEB)(J7620) NEB SCH (21:14)
[2019-04-06] MEDS: SIMVASTATIN 20 MG TAB PO SCH (21:21)
[2019-04-06] MEDS: traZODone 50 MG TAB PO SCH (21:22)
[2019-04-07] MEDS ORDERED: traZODone 25MG PER 1/2 TABLET PO PRN (02:00)
[2019-04-07 06:00] VITALS: BP 121/54
[2019-04-07] MEDS: CLOTRIMAZOLE 10 MG TROCHE PO SCH ×5 (06:00→20:28)
[2019-04-07 06:54] LABS: BASO % 0.4 % (0.0-1.0); EOS # 0.2 10^3/uL (0.0-0.50); EOS % 2.4 % (0.0-3.0); HEMATOCRIT 24.5 % (42.0-52.0); HEMOGLOBIN 7.8 g/dl (13.5-17.5); LYMPH # 1.9 10^3/uL (1.5-4.5); LYMPH % 20.1 % (24.0-44.0); MEAN CORPUSCULAR HEMOGLOBIN 32.6 pg (27.0-33.0); MEAN CORPUSCULAR HGB CONC 31.8 g/dl (32.0-36.5); MEAN CORPUSCULAR VOLUME 102.5 fl (80.0-96.0); MONO # 0.8 10^3/uL (0.0-0.8); MONO % 8.5 % (0.0-5.0); NEUTROPHILS # 6.4 10^3/uL (1.8-7.7); NEUTROPHILS % 67.6 % (36.0-66.0); PLATELET COUNT, AUTOMATED 398 10^3/uL (150-450); RED BLOOD COUNT 2.39 10^6/uL (4.30-6.10); WHITE BLOOD COUNT 9.4 10^3/uL (4.0-10.0)
[2019-04-07 07:04] LABS: INR 2.46; PROTHROMBIN TIME 26.5 SECONDS (11.8-14.0)
[2019-04-07] MEDS: IPRATROPIUM 0.5MG/ALBUTEROL 2.5MG INH SOL UD 3ML (DUONEB)(J7620) NEB SCH ×2 (07:40→15:50)
[2019-04-07] MEDS: FERROUS GLUCONATE 324 MG TAB PO SCH ×2 (08:52→20:28)
[2019-04-07] MEDS: AMIODARONE 200 MG TAB (PACERONE) PO SCH (08:52)
[2019-04-07] MEDS: ASPIRIN 81 MG CHEW TABLET PO SCH (08:52)
[2019-04-07] MEDS: ASCORBIC ACID 500 MG TAB PO SCH (08:52)
[2019-04-07] MEDS: POTASSIUM CHLORIDE 10 MEQ SR TABLET PO SCH (08:52)
[2019-04-07] MEDS: DIGOXIN 0.125 MG TAB PO SCH (08:53)
[2019-04-07] MEDS: PANTOPRAZOLE 40MG TAB (PROTONIX) PO SCH (08:53)
[2019-04-07] MEDS: METOPROLOL TART 25 MG TABLET PO SCH ×2 (08:53→20:35)
[2019-04-07] MEDS: FOLIC ACID 1 MG TAB PO SCH (08:53)
[2019-04-07] MEDS: DOCUSATE SODIUM 100 MG CAP PO SCH ×2 (08:54→20:36)
[2019-04-07] MEDS: NICOTINE 21MG/24HR 1 EA TRANSDERMAL TD SCH (08:54)
[2019-04-07] MEDS ORDERED: FUROSEMIDE 20 MG/2 ML VIAL (J1940) IV SCH (09:00)
--- NOTE | 2019-04-07 10:13 | REP ---
Duplex extremity venous ultrasound: Right lower extremity. History: Right leg edema. Rule out DVT. Findings: The deep veins are anechoic and fully compressible from the groin to the popliteal fossa in the right lower extremity. Color flow imaging is homogeneous. Spectral Doppler interrogation demonstrates intact respiratory variation in flow and normal manual augmentation of flow. There is no evidence of deep vein thrombosis. Impression: Negative right lower extremity duplex venous ultrasound. No evidence of deep vein thrombosis. Electronically Signed by Jorje Brush MD 04/07/2019 10:05 A
--- NOTE | 2019-04-07 10:55 | IPNPDOC ---
Date Seen The patient was seen on 04/07/19. Progress Note SUBJECTIVE: Pt says right leg swelling is better than yesterday,but still much larger thanthe left leg. He denies any bleeding in the leg, pain, brbpr, melena, or black tarry stools. no c/o sob, chest pain,pressure,tightness, or lightheadedness. Hgb <8 but asymptomatic. stool for blood pending. no signs of compartment syndrome in the right leg. type and screen, and serial h&H to be transfused if persistently<8. PHYSICAL EXAMINATION: GENERAL: obese male NAD SKIN : Warm, Ventral surgical incision site without induration, drainage, erythema. Edges well approximated. HEENT: Atraumatic, normocephalic, PERRL, moist mucous membrane CARDIOVASCULAR: Regular rate and rhythm, S1S2, no JVD, BLE 3+ edema, distal pulses not palpable RESP: posterior inspiratory crackles, no accessory muscle use noted ABDOMEN: BS+ non distended non tender MS: no joint deformities NEURO: Alert and oriented x 3, CN2-12 grossly intact PSYCH: no anxiety or agitation, appropriate mood and affect. LABORATORY DATA, IMAGING STUDIES, MICROBIOLOGY:: Please see below. ASSESSMENT/PLAN: Patient is a 64-year-old male, past medical history significant for heavy nicotine dependence, hypertension, hyperlipidemia, obesity, who 2 weeks ago woke up with severe weakness and found to have had an acute myocardial infarction. He was emergently taken to [facility] in [place] where he had surgical intervention with quadruple bypass. Hospitalization was complicated by prolonged intubation, extubated after 12 days, ICU stay, Impala and pacemaker placement. Patient also did develop atrial fibrillation postoperatively. He was discharged to this facility for continuation of cardiac rehabilitation prior to final discharge home. On assessment today he has no complaints other than oral thrush. He denies chest pain, shortness of breath, weakness. He does report some swelling to bilateral lower extremities which has been since surgery. CAD, S/P quadruple bypass -With recent myocardial infarction and findings of multivessel disease requiring surgical revascularization -Status post complicated hospitalization with prolonged ICU stay -Discharged to inpatient rehabilitation unit for mobilization, strengthening, rehabilitation -Management by primary team -CAD risk factor modifications with statin, beta kacey Paroxysmal atrial fibrillation -Continue amiodarone for rhythm control and warfarin for anticoagulation therapy -Currently maintaining sinus rhythm -Monitor INR daily Chronic kidney disease stage III -GFR 40 with elevated creatinine -Cautious diuresis -Avoid nephrotoxic medications -Renal monitoring with treatments Anemia -Hgb currently at 8, which may be hemodilutional given volume overload -monitor hgb -transfuse if less than 8 or hemodynamic compromise -iron studies, smear, retic count, an dstool for blood -no signs of hematoma or right leg ecchymoses Thrush -Oral hygiene with antifungal medication Acute Systolic heart failure -Likely due to recent myocardial infarction and surgery -Fluid restriction 1500 mL daily -Continue Lasix -Monitoring of electrolytes to keep potassium greater than 4, magnesium greater than 2 -Monitoring of renal function with diureses Ischemic Cardiomyopathy -EF 30% -fluid restriction 1500cc/day -daily weights -strict input/output, cardiac diet Hypertension -Continue Lasix, metoprolol titrate, volume management -Blood pressure monitoring per unit protocol DVT prophylaxis VS, I&O, 24H, Fishbone Vital Signs/I&O Vital Signs Date Time Temp Pulse Resp B/P (MAP) Pulse Ox O2 Delivery O2 Flow Rate FiO2 04/07/19 08:53 71 121/54 04/07/19 06:00 97.9 18 95 I&O- Last 24 Hours up to 6 AM 04/07/19 06:00 Intake Total 1280 ml Output Total 250 ml Balance 1030 ml Laboratory Data 24H LABS Laboratory Tests 2 04/06/19 16:46: Bedside Glucose (Misc Panel) 99 04/07/19 06:35: Immature Granulocyte % (Auto) 1.0, White Blood Count 9.4, Red Blood Count 2.39L, Hemoglobin 7.8L, Hematocrit 24.5L, Mean Corpuscular Volume 102.5H, Mean Corpuscular Hemoglobin 32.6, Mean Corpuscular Hemoglobin Concent 31.8L, Red Cell Distribution Width 16.3H, Platelet Count 398, Neutrophils (%) (Auto) 67.6H, Lymphocytes (%) (Auto) 20.1L, Monocytes (%) (Auto) 8.5H, Eosinophils (%) (Auto) 2.4, Basophils (%) (Auto) 0.4, Neutrophils # (Auto) 6.4, Lymphocytes # (Auto) 1.9, Monocytes # (Auto) 0.8, Eosinophils # (Auto) 0.2, Basophils # (Auto) 0.0, Nucleated Red Blood Cells % (auto) 0.0, Prothrombin Time 26.5H, Prothromb Time International Ratio 2.46 CBC/BMP Laboratory Tests 04/07/19 06:35 Red Blood Count 2.39 L, Mean Corpuscular Volume 102.5 H, Mean Corpuscular Hemoglobin 32.6, Mean Corpuscular Hemoglobin Concent 31.8 L, Red Cell Distr ibution Width 16.3 H, Neutrophils (%) (Auto) 67.6 H, Lymphocytes (%) (Auto) 20.1 L, Monocytes (%) (Auto) 8.5 H, Eosinophils (%) (Auto) 2.4, Basophils (%) (Auto) 0.4, Neutrophils # (Auto) 6.4, Lymphocytes # (Auto) 1.9, Monocytes # (Auto) 0.8, Eosinophils # (Auto) 0.2, Basophils # (Auto) 0.0 IQRA SAENZ MD Apr 07, 2019 09:04
[2019-04-07 12:29] LABS: HEMATOCRIT 25.8 % (42.0-52.0); HEMOGLOBIN 8.1 g/dl (13.5-17.5); MEAN CORPUSCULAR HGB CONC 31.4 g/dl (32.0-36.5); PLATELET COUNT, AUTOMATED 430 10^3/uL (150-450); RED BLOOD COUNT 2.53 10^6/uL (4.30-6.10); WHITE BLOOD COUNT 9.5 10^3/uL (4.0-10.0)
[2019-04-07] MEDS: MULTIVITAMINS/MINERALS THERAP 1 TAB PO SCH (12:29)
[2019-04-07] MEDS: FUROSEMIDE 40 MG TAB PO SCH (12:29)
[2019-04-07 12:45] LABS: CALCIUM LEVEL 7.8 MG/DL (8.8-10.2); CREATININE FOR GFR 1.78 MG/DL (0.70-1.30); GLOMERULAR FILTRATION RATE 41.4 (>49); PERCENT SATURATION 12.9 % (19.7-50.0); POTASSIUM SERUM 4.5 MEQ/L (3.5-5.1)
[2019-04-07 14:00] VITALS: BP 130/58
[2019-04-07] MEDS: WARFARIN SOD 4 MG TAB PO SCH (16:24)
[2019-04-07 18:23] LABS: HEMATOCRIT 26.2 % (42.0-52.0); HEMOGLOBIN 8.4 g/dl (13.5-17.5)
[2019-04-07 19:54] VITALS: BP 106/53
[2019-04-07] MEDS: SIMVASTATIN 20 MG TAB PO SCH (20:28)
[2019-04-07] MEDS: SENNA 8.6 MG TAB (SENOKOT) PO SCH (20:35)
[2019-04-07] MEDS: traZODone 50 MG TAB PO SCH (21:55)
[2019-04-08 05:47] VITALS: BP 135/59
[2019-04-08] MEDS: CLOTRIMAZOLE 10 MG TROCHE PO SCH ×5 (06:09→21:07)
[2019-04-08] MEDS: IPRATROPIUM 0.5MG/ALBUTEROL 2.5MG INH SOL UD 3ML (DUONEB)(J7620) NEB SCH ×4 (07:39→21:32)
[2019-04-08 07:53] LABS: HEMATOCRIT 28.6 % (42.0-52.0); HEMOGLOBIN 8.7 g/dl (13.5-17.5); MEAN CORPUSCULAR HGB CONC 30.4 g/dl (32.0-36.5); MEAN CORPUSCULAR VOLUME 105.1 fl (80.0-96.0); PLATELET COUNT, AUTOMATED 444 10^3/uL (150-450); RED BLOOD COUNT 2.72 10^6/uL (4.30-6.10); WHITE BLOOD COUNT 10.7 10^3/uL (4.0-10.0)
[2019-04-08 08:05] LABS: INR 2.45; PROTHROMBIN TIME 26.4 SECONDS (11.8-14.0)
[2019-04-08] MEDS: FERROUS GLUCONATE 324 MG TAB PO SCH ×2 (08:31→21:08)
[2019-04-08] MEDS: ASCORBIC ACID 500 MG TAB PO SCH (08:31)
[2019-04-08] MEDS: DOCUSATE SODIUM 100 MG CAP PO SCH ×2 (08:31→21:07)
[2019-04-08] MEDS: ASPIRIN 81 MG CHEW TABLET PO SCH (08:32)
[2019-04-08] MEDS: FUROSEMIDE 40 MG TAB PO SCH (08:32)
[2019-04-08] MEDS: PANTOPRAZOLE 40MG TAB (PROTONIX) PO SCH (08:32)
[2019-04-08] MEDS: FOLIC ACID 1 MG TAB PO SCH (08:32)
[2019-04-08] MEDS: POTASSIUM CHLORIDE 10 MEQ SR TABLET PO SCH (08:32)
[2019-04-08] MEDS: METOPROLOL TART 25 MG TABLET PO SCH ×2 (08:33→21:09)
[2019-04-08] MEDS: AMIODARONE 200 MG TAB (PACERONE) PO SCH (08:33)
[2019-04-08] MEDS: NICOTINE 21MG/24HR 1 EA TRANSDERMAL TD SCH (08:33)
[2019-04-08] MEDS ORDERED: FUROSEMIDE 40 MG TAB PO SCH (09:00)
--- NOTE | 2019-04-08 10:54 | IPNPDOC ---
Date Seen The patient was seen on 04/08/19. Progress Note SUBJECTIVE: venous doppler right leg negative for dvt. pt says swelling in the right leg is less than before. he is working well with physical therapy and OT. H&H stable overnight, and no c/osob chest pain, or dizziness. OBJECTIVE: PHYSICAL EXAMINATION: GENERAL: obese male NAD SKIN : Warm, Ventral surgical incision site without induration, drainage, erythema. Edges well approximated. HEENT: Atraumatic, normocephalic, PERRL, moist mucous membrane CARDIOVASCULAR: Regular rate and rhythm, S1S2, no JVD, BLE 3+ edema, distal pulses not palpable RESP: posterior inspiratory crackles, no accessory muscle use noted ABDOMEN: BS+ non distended non tender MS: no joint deformities NEURO: Alert and oriented x 3, CN2-12 grossly intact PSYCH: no anxiety or agitation, appropriate mood and affect. LABORATORY DATA, IMAGING STUDIES, MICROBIOLOGY:: Please see below. ASSESSMENT/PLAN: Patient is a 64-year-old male, past medical history significant for heavy nicotine dependence, hypertension, hyperlipidemia, obesity, who 2 weeks ago woke up with severe weakness and found to have had an acute myocardial infarction. He was emergently taken to [facility] in [place] where he had surgical intervention with quadruple bypass. Hospitalization was complicated by prolonged intubation, extubated after 12 days, ICU stay, Impala and pacemaker placement. Patient also did develop atrial fibrillation postoperatively. He was discharged to this facility for con tinuation of cardiac rehabilitation prior to final discharge home. On assessment today he has no complaints other than oral thrush. He denies chest pain, shortness of breath, weakness. He does report some swelling to bilateral lower extremities which has been since surgery. CAD, S/P quadruple bypass -With recent myocardial infarction and findings of multivessel disease requiring surgical revascularization -Status post complicated hospitalization with prolonged ICU stay -Discharged to inpatient rehabilitation unit for mobilization, strengthening, rehabilitation -Management by primary team -CAD risk factor modifications with statin, beta kacey Paroxysmal atrial fibrillation -Continue amiodarone for rhythm control and warfarin for anticoagulation therapy -Currently maintaining sinus rhythm -Monitor INR daily Chronic kidney disease stage III -GFR 40 with elevated creatinine -Cautious diuresis -Avoid nephrotoxic medications -Renal monitoring with treatments Anemia -Hgb currently at 8, which may be hemodilutional given volume overload -monitor hgb -transfuse if less than 8 or hemodynamic compromise -iron studies, smear, retic count, an dstool for blood -no signs of hematoma or right leg ecchymoses Right LE edema -us doppler negative for DVT -compression stockings -continue with lasix Thrush -Oral hygiene with antifungal medication Acute Systolic heart failure -Likely due to recent myocardial infarction and surgery -Fluid restriction 1500 mL daily -Continue Lasix -Monitoring of electrolytes to keep potassium greater than 4, magnesium greater than 2 -Monitoring of renal function with diureses Ischemic Cardiomyopathy -EF 30% -fluid restriction 1500cc/day -daily weights -strict input/output, cardiac diet Hypertension -Continue Lasix, metoprolol titrate, volume management -Blood pressure monitoring per unit protocol DVT prophylaxis VS, I&O, 24H, Fishbone Vital Signs/I&O Vital Signs Date Time Temp Pulse Resp B/P (MAP) Pulse Ox O2 Delivery O2 Flow Rate FiO2 04/07/19 20:35 68 106/53 04/07/19 19:54 98.0 18 97 I&O- Last 24 Hours up to 6 AM 04/08/19 06:00 Intake Total 1050 ml Output Total 1350 ml Balance -300 ml Laboratory Data 24H LABS Laboratory Tests 2 04/07/19 06:35: Immature Granulocyte % (Auto) 1.0, White Blood Count 9.4, Red Blood Count 2.39L, Hemoglobin 7.8L, Hematocrit 24.5L, Mean Corpuscular Volume 102.5H, Mean Corpuscular Hemoglobin 32.6, Mean Corpuscular Hemoglobin Concent 31.8L, Red Cell Distribution Width 16.3H, Platelet Count 398, Neutrophils (%) (Auto) 67.6H, Lymphocytes (%) (Auto) 20.1L, Monocytes (%) (Auto) 8.5H, Eosinophils (%) (Auto) 2.4, Basophils (%) (Auto) 0.4, Neutrophils # (Auto) 6.4, Lymphocytes # (Auto) 1.9, Monocytes # (Auto) 0.8, Eosinophils # (Auto) 0.2, Basophils # (Auto) 0.0, Nucleated Red Blood Cells % (auto) 0.0, Prothrombin Time 26.5H, Prothromb Time International Ratio 2.46 04/07/19 12:03: Nucleated Red Blood Cells % (auto) 0.0, Reticulocyte # (auto) 154.3H, Differential Slide Review Report, Peripheral Blood Smear Path Consult PERIPHERAL SMEAR, Percent Reticulocyte Count 6.1H, Reticulocyte Hemoglobin Equivalent 32.0, Anion Gap 7L, Glomerular Filtration Rate 41.4L, Blood Urea Nitrogen 24H, Creatinine 1.78H, Sodium Level 139, Potassium Level 4.5, Chloride Level 105, Carbon Dioxide Level 27, Calcium Level 7.8L, Iron Level 37L, Total Iron Binding Capacity 287, Transferrin % Saturation 12.9L CBC/BMP Laboratory Tests 04/07/19 06:35 Red Blood Count 2.39 L, Mean Corpuscular Volume 102.5 H, Mean Corpuscular Hemoglobin 32.6, Mean Corpuscular Hemoglobin Concent 31.8 L, Red Cell Distribution Width 16.3 H, Neutrophils (%) (Auto) 67.6 H, Lymphocytes (%) (Auto) 20.1 L, Monocytes (%) (Auto) 8.5 H, Eosinophils (%) (Auto) 2.4, Basophils (%) (Auto) 0.4, Neutrophils # (Auto) 6.4, Lymphocytes # (Auto) 1.9, Monocytes # (Auto) 0.8, Eosinophils # (Auto) 0.2, Basophils # (Auto) 0.0 04/07/19 12:03 Red Blood Count 2.53 L, Mean Corpuscular Volume 102.0 H, Mean Corpuscular Hemoglobin 32.0, Mean Corpuscular Hemoglobin Concent 31.4 L, Red Cell Distribution Width 16.3 H, Calcium Level 7.8 L 04/07/19 18:13 IQRA SAENZ MD Apr 08, 2019 05:46
[2019-04-08] MEDS: MULTIVITAMINS/MINERALS THERAP 1 TAB PO SCH (13:10)
[2019-04-08 14:00] VITALS: BP 125/57
[2019-04-08] MEDS: WARFARIN SOD 4 MG TAB PO SCH (17:29)
[2019-04-08 20:00] VITALS: BP 119/56
[2019-04-08] MEDS: SENNA 8.6 MG TAB (SENOKOT) PO SCH (21:07)
[2019-04-08] MEDS: SIMVASTATIN 20 MG TAB PO SCH (21:08)
[2019-04-08] MEDS: traZODone 50 MG TAB PO SCH (21:08)
[2019-04-09 05:52] VITALS: BP 127/63
[2019-04-09] MEDS: CLOTRIMAZOLE 10 MG TROCHE PO SCH ×6 (06:05→22:48)
[2019-04-09 07:19] LABS: BASO % 0.4 % (0.0-1.0); EOS # 0.3 10^3/uL (0.0-0.50); EOS % 2.7 % (0.0-3.0); HEMATOCRIT 26.9 % (42.0-52.0); HEMOGLOBIN 8.2 g/dl (13.5-17.5); LYMPH # 1.7 10^3/uL (1.5-4.5); LYMPH % 18.2 % (24.0-44.0); MEAN CORPUSCULAR HEMOGLOBIN 31.7 pg (27.0-33.0); MEAN CORPUSCULAR HGB CONC 30.5 g/dl (32.0-36.5); MEAN CORPUSCULAR VOLUME 103.9 fl (80.0-96.0); MONO # 0.8 10^3/uL (0.0-0.8); NEUTROPHILS # 6.5 10^3/uL (1.8-7.7); PLATELET COUNT, AUTOMATED 394 10^3/uL (150-450); RED BLOOD COUNT 2.59 10^6/uL (4.30-6.10); WHITE BLOOD COUNT 9.4 10^3/uL (4.0-10.0)
[2019-04-09] MEDS: IPRATROPIUM 0.5MG/ALBUTEROL 2.5MG INH SOL UD 3ML (DUONEB)(J7620) NEB SCH ×2 (07:22→15:36)
[2019-04-09 07:29] LABS: INR 2.72; PROTHROMBIN TIME 28.7 SECONDS (11.8-14.0)
[2019-04-09 07:42] LABS: CALCIUM LEVEL 8.5 MG/DL (8.8-10.2); CREATININE FOR GFR 1.8 MG/DL (0.70-1.30); GLOMERULAR FILTRATION RATE 40.9 (>49); POTASSIUM SERUM 4.1 MEQ/L (3.5-5.1)
[2019-04-09] MEDS: PANTOPRAZOLE 40MG TAB (PROTONIX) PO SCH (08:35)
[2019-04-09] MEDS: FOLIC ACID 1 MG TAB PO SCH (08:35)
[2019-04-09] MEDS: ASPIRIN 81 MG CHEW TABLET PO SCH (08:35)
[2019-04-09] MEDS: POTASSIUM CHLORIDE 10 MEQ SR TABLET PO SCH (08:35)
[2019-04-09] MEDS: FERROUS GLUCONATE 324 MG TAB PO SCH ×2 (08:35→21:50)
[2019-04-09] MEDS: DIGOXIN 0.125 MG TAB PO SCH (08:35)
[2019-04-09] MEDS: ASCORBIC ACID 500 MG TAB PO SCH (08:35)
[2019-04-09] MEDS: FUROSEMIDE 40 MG TAB PO SCH (08:35)
[2019-04-09] MEDS: NICOTINE 21MG/24HR 1 EA TRANSDERMAL TD SCH (08:36)
[2019-04-09] MEDS: METOPROLOL TART 25 MG TABLET PO SCH (08:36)
[2019-04-09] MEDS: AMIODARONE 200 MG TAB (PACERONE) PO SCH (08:36)
[2019-04-09] MEDS: DOCUSATE SODIUM 100 MG CAP PO SCH ×2 (09:00→21:49)
--- NOTE | 2019-04-09 10:09 | IPNPDOC ---
PM&R Progress Note DATE OF SERVICE: Apr 09, 2019 [employer] Progress Note Subjective: Patient reports he has mild fatigue and intermittently dizzy, but does not want a blood transfusion. he is able to fully participate in therapy. REVIEW OF SYSTEMS: The following is a completed review of systems and has been reviewed. Review of systems otherwise unremarkable. PAIN: Patient self reports no pain EYES: No recent vision changes EARS, NOSE, & THROAT: No throat pain, or dysphagia, or rhinorrhea CARDIOVASCULAR: Denies chest pain or palpitations PULMONARY: Denies shortness of breath GASTROINTESTINAL: Denies constipation/diarrhea GENITOURINARY: denies dysuria MUSCULOSKELETAL: weakness NEUROLOGICAL:no tremor or seizure activity HEMATOLOGICAL: +anemia SKIN: sternotomy PSYCHIATRIC: Unremarkable All other review of systems found to be negative. PHYSICAL EXAMINATION: VITAL SIGNS: Please see below. GENERAL: Pleasant and cooperative. No acute distress. HEENT: PERRL. Extraocular movements intact. Clear conjunctiva CARDIOVASCULAR: Irregular rate and rhythm. No murmurs, rubs, or gallops LUNGS: Clear to auscultation bilaterally. No wheezes. No rhonchi ABDOMEN: Soft, nontender, nondistended. Positive bowel sounds. Normal active bowel sounds NEUROLOGICAL: Alert and oriented times three. Cranial nerves II through XII grossly intact. Sensation grossly intact EXTREMITIES: 5\5 strength bilateral upper extremities. 5\5 strength right lower extremity. 5/5 strength in left lower extremity. SKIN: sternotomy incision c/d/i LABORATORY DATA: Please see below. ASSESSMENT:64-year-old M with past medical history of HTN, HLD who presents sta tus post emergnt CABG x4 with cardiogenic shock and respiratory failure requiring prolonged mechanical ventilation PLAN: 1. Rehab: PT- improve endurance, maintain LE ROM, energy conservation -OT limit UE strengthening, work on ADL tasks and use of adaptive equipment if necessary while maintaining sternal precautions - HR max 115-125 bpm 2. Neuro: recent cardiogenic shock, avoid deliriogenic agents 3. Cardio: s/p anterior wall NSTEMI requiring urgent CABG x4 with systolic CHF- continue diuretic, ASA and Plavix- ROQUE on hold until ROLAND resolves- medicine consulted to assist with management, CXR concnerning for fluid overload, continue Lasix -Afib- c/u digoxin, amiodarone, and Coumadin- daily INR goal 2-3, will lower metoprolol to 12.5 mg BID for mild dizziness monitor -HLD- c/u statin -will refer to outpatient cardiac rehab -f/u with Dr. Almanza in 2-3 weeks - f/u Dr. Lechuga April 19, 9:45 am (cardiothoracic surgeon) 4. Resp: monitor for infection, heavy smoker, c/u breathing treatments and nicoderm patch 5. renal: recent ROLAND, will monitor 6. GI ppx protonix 7. DVT ppx: on Coumadin, TEDs 8. Heme: anemia, aptient declinign blood transfusion at this time stating he is only mildly fatigued 8. Pain: Tylenol prn 9. ID: oral thrush c/u oral antifungal 7 days total 10. Insomnia: continue trazodone standing, will add extra prn dose 10. Dispo: goal to home, progressing quickly, consult to cardiac rehab placed today Allergies Coded Allergies: No Known Allergies (Unverified , 08/24/18) Vital Signs Vital Signs Date Time Temp Pulse Resp B/P (MAP) Pulse Ox O2 Delivery O2 Flow Rate FiO2 04/09/19 08:36 71 127/63 04/09/19 05:52 97.9 18 96 Laboratory Data CBC/BMP Laboratory Tests 04/09/19 06:57 Red Blood Count 2.59 L, Mean Corpuscular Volume 103.9 H, Mean Corpuscular Hemoglobin 31.7, Mean Corpuscular Hemoglobin Concent 30.5 L, Red Cell Distribution Width 16.3 H, Neutrophils (%) (Auto) 69.0 H, Lymphocytes (%) (Auto) 18.2 L, Monocytes (%) (Auto) 9.0 H, Eosinophils (%) (Auto) 2.7, Basophils (%) (Auto) 0.4, Neutrophils # (Auto) 6.5, Lymphocytes # (Auto) 1.7, Monocytes # (Auto) 0.8, Eosinophils # (Auto) 0.3, Basophils # (Auto) 0.0, Calcium Level 8.5 L Labs 24H Laboratory Tests 2 04/09/19 06:57: Immature Granulocyte % (Auto) 0.7, White Blood Count 9.4, Red Blood Count 2.59L, Hemoglobin 8.2L, Hematocrit 26.9L, Mean Corpuscular Volume 103.9H, Mean Corpuscular Hemoglobin 31.7, Mean Corpuscular Hemoglobin Concent 30.5L, Red Cell Distribution Width 16.3H, Platelet Count 394, Neutrophils (%) (Auto) 69.0H, L ymphocytes (%) (Auto) 18.2L, Monocytes (%) (Auto) 9.0H, Eosinophils (%) (Auto) 2.7, Basophils (%) (Auto) 0.4, Neutrophils # (Auto) 6.5, Lymphocytes # (Auto) 1.7, Monocytes # (Auto) 0.8, Eosinophils # (Auto) 0.3, Basophils # (Auto) 0.0, Nucleated Red Blood Cells % (auto) 0.0, Prothrombin Time 28.7H, Prothromb Time International Ratio 2.72, Anion Gap 9, Glomerular Filtration Rate 40.9L, Blood Urea Nitrogen 25H, Creatinine 1.80H, Sodium Level 142, Potassium Level 4.1, Chloride Level 106, Carbon Dioxide Level 27, Calcium Level 8.5L Microbiology Microbiology 04/09/19 Stool Occult Blood (DAVID) - Final, Complete Current Medications Current Medications Current Medications Acetaminophen (Tylenol Tab) 650 mg Q4HP PRN PO fever/MILD PAIN (PS 1-4) Last administered on 04/05/19at 22:40; Start 04/05/19 at 18:30 Albuterol/ Ipratropium (Duoneb (Ipr 0.5mg/Alb 2.5mg)) 3 ml Q2HP PRN NEB SOB/WHEEZING; Start 04/06/19 at 15:45 Albuterol/ Ipratropium (Duoneb (Ipr 0.5mg/Alb 2.5mg)) 3 ml RQ8H NEB ; Start 04/06/19 at 16:00 Alprazolam (Xanax) 0.25 mg QHS PRN PO ANXIETY; Start 04/05/19 at 18:30; Stop 04/05/19 at 19:31; Status DC Amiodarone HCl (Pacerone, Cordarone) 400 mg DAILY PO Last administered on 04/09/19at 08:36; Start 04/06/19 at 09:00 Ascorbic Acid (Vitamin C) 500 mg DAILY PO Last administered on 04/09/19at 08:35; Start 04/06/19 at 09:00 Aspirin (Aspirin Chewable) 81 mg DAILY PO Last administered on 04/09/19 08:35; Start 04/06/19 at 09:00 Clotrimazole (Mycelex) 10 mg 5XD PO Last administered on 04/09/19 08:36; Start 04/05/19 at 21:00 Digoxin (Lanoxin) 0.125 mg Q2D@0900 PO Last administered on 04/09/19 08:35; Start 04/07/19 at 09:00 Docusate Sodium (Colace) 100 mg BID PO Last administered on 04/08/19 21:07; Start 04/05/19 at 21:00 Ferrous Gluconate (Fergon) 324 mg BID PO Last administered on 04/09/19 08:35; Start 04/05/19 at 21:00 Folic Acid (Folic Acid) 1 mg DAILY PO Last administered on 04/09/19 08:35; Start 04/06/19 at 09:00 Furosemide (LASIX injection) 20 mg DAILY IV ; Start 04/07/19 at 09:00; Status Cancel Furosemide (Lasix) 40 mg DAILY PO Last administered on 04/06/19at 08:34; Start 04/06/19 at 09:00; Stop 04/06/19 at 15:37; Status DC Furosemide (Lasix) 40 mg DAILY PO Last administered on 04/09/19 08:35; Start 04/07/19 at 12:00 Furosemide (Lasix) 40 mg DAILY PO ; Start 04/08/19 at 09:00; Stop 04/08/19 at 09:00; Status DC Home Med (Med Rec Complete!) ASDIRECTED XX ; Start 04/05/19 at 20:15; Stop 04/05/19 at 20:15; Status DC Metoprolol Tartrate (Lopressor) 25 mg BID PO Last administered on 04/09/19 08:36; Start 04/05/19 at 21:00 Multivitamins (Theragram-M) 1 tab DAILY@1200 PO Last administered on 04/08/19 13:10; Start 04/06/19 at 12:00 Nicotine (Nicoderm Cq 21mg) 1 patch DAILY TD Last administered on 04/09/19 08:36; Start 04/06/19 at 09:00 Ondansetron HCl (Zofran) 4 mg Q6HP PRN PO NAUSEA; Start 04/05/19 at 18:30 Pantoprazole Sodium (Protonix) 40 mg DAILY PO Last administered on 04/09/19 08:35; Start 04/06/19 at 09:00 Potassium Chloride (Micro-K Extencaps) 10 meq DAILY PO Last administered on 04/09/19 08:35; Start 04/06/19 at 09:00 Senna (Senokot) 1 tab QHS PO Last administered on 04/08/19 21:07; Start 04/05/19 at 21:00 Simvastatin (Zocor) 20 mg QHS PO Last administered on 04/08/19 21:08; Start 04/05/19 at 21:00 Trazodone HCl (Desyrel) 25 mg QHSP PRN PO INSOMNIA; Start 04/07/19 at 02:00 Trazodone HCl (Desyrel) 50 mg QHS PO Last administered on 04/08/19 21:08; Start 04/05/19 at 21:00 Warfarin Sodium (Coumadin) 4 mg DAILY@17 PO Last administered on 04/08/19 17:29; Start 04/06/19 at 17:00 JOHN PAUL FLYNN MD Apr 09, 2019 10:09
--- NOTE | 2019-04-09 10:09 | IPNPDOC ---
PM&R Progress Note DATE OF SERVICE: Apr 06, 2019 [employer] Progress Note Subjective: Patient reports he is feeling well except he is having difficulty sleeping. He denies trouble breathing or chest pain. REVIEW OF SYSTEMS: The following is a completed review of systems and has been reviewed. Review of systems otherwise unremarkable. PAIN: Patient self reports no pain EYES: No recent vision changes EARS, NOSE, & THROAT: No throat pain, or dysphagia, or rhinorrhea CARDIOVASCULAR: Denies chest pain or palpitations PULMONARY: Denies shortness of breath GASTROINTESTINAL: Denies constipation/diarrhea GENITOURINARY: denies dysuria MUSCULOSKELETAL: weakness NEUROLOGICAL:no tremor or seizure activity HEMATOLOGICAL: +anemia SKIN: sternotomy PSYCHIATRIC: Unremarkable All other review of systems found to be negative. PHYSICAL EXAMINATION: VITAL SIGNS: Please see below. GENERAL: Pleasant and cooperative. No acute distress. HEENT: PERRL. Extraocular movements intact. Clear conjunctiva CARDIOVASCULAR: Irregular rate and rhythm. No murmurs, rubs, or gallops LUNGS: Clear to auscultation bilaterally. No wheezes. No rhonchi ABDOMEN: Soft, nontender, nondistended. Positive bowel sounds. Normal active bowel sounds NEUROLOGICAL: Alert and oriented times three. Cranial nerves II through XII grossly intact. Sensation grossly intact EXTREMITIES: 5\5 strength bilateral upper extremities. 5\5 strength right lower extremity. 5/5 strength in left lower extremity. SKIN: sternotomy incision c/d/i LABORATORY DATA: Please see below. ASSESSMENT:64-year-old M with past medical history of HTN, HLD who presents status post emergnt CABG x4 with cardiogenic shock and respiratory failure requiring prolonged mechanical ventilation PLAN: 1. Rehab: PT- improve endurance, maintain LE ROM, energy conservation -OT limit UE strengthening, work on ADL tasks and use of adaptive equipment if necessary while maintaining sternal precautions - HR max 115-125 bpm 2. Neuro: recent cardiogenic shock, avoid deliriogenic agents 3. Cardio: s/p anterior wall NSTEMI requiring urgent CABG x4 with systolic CHF- continue diuretic, ASa and Plavix- ROQUE on hold until ROLAND resolves- medicine consulted to assist with management, CXR ordered today for concner for fluid overload -Afib- c/u digoxin, amiodarone, and Coumadin- daily INR goal 2-3 -HLD- c/u statin -will refer to outpatient cardiac rehab -f/u with Dr. Almanza in 2-3 weeks - f/u Dr. Lechuga April 19, 9:45 (cardiothoracic surgeon) 4. Resp: monitor for infection, heavy smoker, c/u breathing treatments and nicoderm patch 5. renal: recent ROLAND, will monitor 6. GI ppx protonix 7. DVT ppx: on Coumadin, TEDs 8. Pain: Tylenol prn 9. ID: oral thrush c/u oral antifungal 7 days total 10. Insomnia: continue trazodone standing, will add extra prn dose 10. Dispo: TBD Allergies Coded Allergies: No Known Allergies (Unverified , 08/24/18) Vital Signs Vital Signs Date Time Temp Pulse Resp B/P (MAP) Pulse Ox O2 Delivery O2 Flow Rate FiO2 04/09/19 08:36 71 127/63 04/09/19 05:52 97.9 18 96 Laboratory Data CBC/BMP Laboratory Tests 04/09/19 06:57 Red Blood Count 2.59 L, Mean Corpuscular Volume 103.9 H, Mean Corpuscular Hemoglobin 31.7, Mean Corpuscular Hemoglobin Concent 30.5 L, Red Cell Distribution Width 16.3 H, Neutrophils (%) (Auto) 69.0 H, Lymphocytes (%) (Auto) 18.2 L, Monocytes (%) (Auto) 9.0 H, Eosinophils (%) (Auto) 2.7, Basophils (%) (Auto) 0.4, Neutrophils # (Auto) 6.5, Lymphocytes # (Auto) 1.7, Monocytes # (Auto) 0.8, Eosinophils # (Auto) 0.3, Basophils # (Auto) 0.0, Calcium Level 8.5 L Labs 24H Laboratory Tests 2 04/09/19 06:57: Immature Granulocyte % (Auto) 0.7, White Blood Count 9.4, Red Blood Count 2.59L, Hemoglobin 8.2L, Hematocrit 26.9L, Mean Corpuscular Volume 103.9H, Mean Corpuscular Hemoglobin 31.7, Mean Corpuscular Hemoglobin Concent 30.5L, Red Cell Distribution Width 16.3H, Platelet Count 394, Neutrophils (%) (Auto) 69.0H, Lymphocytes (%) (Auto) 18.2L, Monocytes (%) (Auto) 9.0H, Eosinophils (%) (Auto) 2.7, Basophils (%) (Auto) 0.4, Neutrophils # (Auto) 6.5, Lymphocytes # (Auto) 1.7, Monocytes # (Auto) 0.8, Eosinophils # (Auto) 0.3, Basophils # (Auto) 0.0, Nucleated Red Blood Cells % (auto) 0.0, Prothrombin Time 28.7H, Prothromb Time International Ratio 2.72, Anion Gap 9, Glomerular Filtration Rate 40.9L, Blood Urea Nitrogen 25H, Creatinine 1.80H, Sodium Level 142, Potassium Level 4.1, Chloride Level 106, Carbon Dioxide Level 27, Calcium Level 8.5L Microbiology Microbiology 04/09/19 Stool Occult Blood (DAVID) - Final, Complete Current Medications Current Medications Current Medications Acetaminophen (Tylenol Tab) 650 mg Q4HP PRN PO fever/MILD PAIN (PS 1-4) Last administered on 04/05/19at 22:40; Start 04/05/19 at 18:30 Albuterol/ Ipratropium (Duoneb (Ipr 0.5mg/Alb 2.5mg)) 3 ml Q2HP PRN NEB SOB/WHEEZING; Start 04/06/19 at 15:45 Albuterol/ Ipratropium (Duoneb (Ipr 0.5mg/Alb 2.5mg)) 3 ml RQ8H NEB ; Start 04/06/19 at 16:00 Alprazolam (Xanax) 0.25 mg QHS PRN PO ANXIETY; Start 04/05/19 at 18:30; Stop 04/05/19 at 19:31; Status DC Amiodarone HCl (Pacerone, Cordarone) 400 mg DAILY PO Last administered on 04/09/19at 08:36; Start 04/06/19 at 09:00 Ascorbic Acid (Vitamin C) 500 mg DAILY PO Last administered on 04/09/19at 08:35; Start 04/06/19 at 09:00 Aspirin (Aspirin Chewable) 81 mg DAILY PO Last administered on 04/09/19at 08:35; Start 04/06/19 at 09:00 Clotrimazole (Mycelex) 10 mg 5XD PO Last administered on 04/09/19at 08:36; Start 04/05/19 at 21:00 Digoxin (Lanoxin) 0.125 mg Q2D@0900 PO Last administered on 04/09/19 08:35; Start 04/07/19 at 09:00 Docusate Sodium (Colace) 100 mg BID PO Last administered on 04/08/19 21:07; Start 04/05/19 at 21:00 Ferrous Gluconate (Fergon) 324 mg BID PO Last administered on 04/09/19 08:35; Start 04/05/19 at 21:00 Folic Acid (Folic Acid) 1 mg DAILY PO Last administered on 04/09/19 08:35; Start 04/06/19 at 09:00 Furosemide (LASIX injection) 20 mg DAILY IV ; Start 04/07/19 at 09:00; Status Cancel Furosemide (Lasix) 40 mg DAILY PO Last administered on 04/06/19 08:34; Start 04/06/19 at 09:00; Stop 04/06/19 at 15:37; Status DC Furosemide (Lasix) 40 mg DAILY PO Last administered on 04/09/19 08:35; Start 04/07/19 at 12:00 Furosemide (Lasix) 40 mg DAILY PO ; Start 04/08/19 at 09:00; Stop 04/08/19 at 09:00; Status DC Home Med (Med Rec Complete!) ASDIRECTED XX ; Start 04/05/19 at 20:15; Stop 04/05/19 at 20:15; Status DC Metoprolol Tartrate (Lopressor) 25 mg BID PO Last administered on 04/09/19 08:36; Start 04/05/19 at 21:00 Multivitamins (Theragram-M) 1 tab DAILY@1200 PO Last administered on 04/08/19 13:10; Start 04/06/19 at 12:00 Nicotine (Nicoderm Cq 21mg) 1 patch DAILY TD Last administered on 04/09/19 08 :36; Start 04/06/19 at 09:00 Ondansetron HCl (Zofran) 4 mg Q6HP PRN PO NAUSEA; Start 04/05/19 at 18:30 Pantoprazole Sodium (Protonix) 40 mg DAILY PO Last administered on 04/09/19 08:35; Start 04/06/19 at 09:00 Potassium Chloride (Micro-K Extencaps) 10 meq DAILY PO Last administered on 04/09/19 08:35; Start 04/06/19 at 09:00 Senna (Senokot) 1 tab QHS PO Last administered on 04/08/19at 21:07; Start 04/05/19 at 21:00 Simvastatin (Zocor) 20 mg QHS PO Last administered on 04/08/19at 21:08; Start 04/05/19 at 21:00 Trazodone HCl (Desyrel) 25 mg QHSP PRN PO INSOMNIA; Start 04/07/19 at 02:00 Trazodone HCl (Desyrel) 50 mg QHS PO Last administered on 04/08/19at 21:08; Start 04/05/19 at 21:00 Warfarin Sodium (Coumadin) 4 mg DAILY@17 PO Last administered on 04/08/19at 17:29; Start 04/06/19 at 17:00 JOHN PAUL FLYNN MD Apr 09, 2019 10:09
[2019-04-09] MEDS: MULTIVITAMINS/MINERALS THERAP 1 TAB PO SCH (12:08)
[2019-04-09 14:00] VITALS: BP 112/51
--- NOTE | 2019-04-09 16:48 | IPNPDOC ---
Date Seen The patient was seen on 04/09/19. Progress Note SUBJECTIVE: Patient complains of dizziness this morning as he got up from bed to stand. He sat back down on his bed, and waited a few minutes until the dizziness subsided on its own without intervention. He denies any palpitations, chest pain,pressure,tightness, fever, cough, nausea, vomiting,diarrhea,brbpr, melena, or black tarry stools. He says during the day as he works with physical therapy, he sometimes feels some dizziness which lasts for only a few minutes, and goes away on its own. OBJECTIVE: PHYSICAL EXAMINATION: VITALS: Pls see below. GENERAL: obese male NAD. anicteric sclera. no pallor noconversational dyspnea speaks in full sentences SKIN : Warm, Ventral surgical incision site without induration, drainage, erythema. Edges well approximated. HEENT: Atraumatic, normocephalic, PERRL, moist mucous membrane CARDIOVASCULAR: Regular rate and rhythm, S1S2, no JVD, BLE 3+ edema, distal pulses not palpable RESP: posterior inspiratory crackles, no accessory muscle use noted ABDOMEN: BS+ non distended non tender MS: no joint deformities NEURO: Alert and oriented x 3, CN2-12 grossly intact PSYCH: no anxiety or agitation, appropriate mood and affect. EXT: right leg edema >>left. healed surgical scars. LABORATORY DATA, IMAGING STUDIES, MICROBIOLOGY:: Please see below. ASSESSMENT/PLAN: Patient is a 64-year-old male, past medical history significant for heavy nicotine dependence, hypertension, hyperlipidemia, obesity, who 2 weeks ago woke up with severe weakness and found to have had an acute myocardial infarction. He was emergently taken to [facility] in [place] where he had surgical intervention with quadruple bypass. Hospitalization was complicated by prolonged intubation, extubated after 12 days, ICU stay, [place] and pacemaker placement. Patient also did develop atrial fibrillation postoperatively. He was discharged to this facility for continuation of cardiac rehabilitation prior to final discharge home. CABG X 4vessels, CAD [place] vessels -With recent myocardial infarction and findings of multivessel disease requiring surgical revascularization -Status post complicated hospitalization with prolonged ICU stay -Discharged to inpatient rehabilitation unit for mobilization, strengthening, rehabilitation -Management by primary team -CAD risk factor modifications with statin, beta kacey Dizziness -since the patient is on diuretics, he is at risk for orthostasis. -check orthostatic vitals , and if (+) may need to decrease diuretics. -if negative orthostatics, may need to rule out uncontrolled Afib or bradycardia -if subtherapeutic INR, at risk for cerebellar CVA, and may need Head imaging. Paroxysmal atrial fibrillation -Continue amiodarone for rhythm control and warfarin for anticoagulation therapy -Currently maintaining sinus rhythm -Monitor INR daily Chronic kidney disease stage III -GFR 40 with elevated creatinine -Cautious diuresis -Avoid nephrotoxic medications -Renal monitoring with treatments Anemia -Hgb currently at 8, which may be hemodilutional given volume overload -monitor hgb -transfuse if less than 8 or hemodynamic compromise -iron studies, smear, retic count, an dstool for blood -no signs of hematoma or right leg ecchymoses Right LE edema -us doppler negative for DVT -compression stockings -continue with lasix Thrush -Oral hygiene with antifungal medication Acute Systolic heart failure -Likely due to recent myocardial infarction and surgery -Fluid restriction 1500 mL daily -Continue Lasix -Monitoring of electrolytes to keep potassium greater than 4, magnesium greater than 2 -Monitoring of renal function with diureses Ischemic Cardiomyopathy -EF 30% -fluid restriction 1500cc/day -daily weights -strict input/output, cardiac diet Hypertension -Continue Lasix, metoprolol titrate, volume management -Blood pressure monitoring per unit protocol DVT prophylaxis VS, I&O, [facility]H, [facility] Vital Signs/I&O Vital Signs Date Time Temp Pulse Resp B/P (MAP) Pulse Ox O2 Delivery O2 Flow Rate FiO2 04/09/19 14:00 98.4 69 16 112/51 (71) 97 I&O- Last 24 Hours up to 6 AM 04/09/19 06:00 Intake Total 870 ml Output Total 1350 ml Balance -480 ml Laboratory Data 24H LABS Laboratory Tests 2 04/09/19 06:57: Immature Granulocyte % (Auto) 0.7, White Blood Count 9.4, Red Blood Count 2.59L, Hemoglobin 8.2L, Hematocrit 26.9L, Mean Corpuscular Volume 103.9H, Mean Corpuscular Hemoglobin 31.7, Mean Corpuscular Hemoglobin Concent 30.5L, Red Cell Distribution Width 16.3H, Platelet Count 394, Neutrophils (%) (Auto) 69.0H, Lymphocytes (%) (Auto) 18.2L, Monocytes (%) (Auto) 9.0H, Eosinophils (%) (Auto) 2.7, Basophils (%) (Auto) 0.4, Neutrophils # (Auto) 6.5, Lymphocytes # (Auto) 1.7, Monocytes # (Auto) 0.8, Eosinophils # (Auto) 0.3, Basophils # (Auto) 0.0, Nucleated Red Blood Cells % (auto) 0.0, Prothrombin Time 28.7H, Prothromb Time International Ratio 2.72, Anion Gap 9, Glomerular Filtration Rate 40.9L, Blood Urea Nitrogen 25H, Creatinine 1.80H, Sodium Level 142, Potassium Level 4.1, Chloride Level 106, Carbon Dioxide Level 27, Calcium Level 8.5L CBC/BMP Laboratory Tests 04/09/19 06:57 Red Blood Count 2.59 L, Mean Corpuscular Volume 103.9 H, Mean Corpuscular Hemoglobin 31.7, Mean Corpuscular Hemoglobin Concent 30.5 L, Red Cell Distribution Width 16.3 H, Neutrophils (%) (Auto) 69.0 H, Lymphocytes (%) (Auto) 18.2 L, Monocytes (%) (Auto) 9.0 H, Eosinophils (%) (Auto) 2.7, Basophils (%) (Auto) 0.4, Neutrophils # (Auto) 6.5, Lymphocytes # (Auto) 1.7, Monocytes # (Auto) 0.8, Eosinophils # (Auto) 0.3, Basophils # (Auto) 0.0, Calcium Level 8.5 L Microbiology Microbiology 04/09/19 Stool Occult Blood (DAVID) - Final, Complete IQRA SAENZ MD Apr 09, 2019 16:48
[2019-04-09] MEDS ORDERED: WARFARIN SOD 4 MG TAB PO SCH (17:00)
[2019-04-09 19:38] VITALS: BP_SYST 123; BP_SYST 134; BP_SYST 146; BP_DIAS 54; BP_DIAS 57; BP_DIAS 61
[2019-04-09 20:00] VITALS: BP 134/54
[2019-04-09] MEDS: traZODone 50 MG TAB PO SCH (21:00)
[2019-04-09] MEDS: SENNA 8.6 MG TAB (SENOKOT) PO SCH (21:49)
[2019-04-09] MEDS: METOPROLOL TART 12.5 MG PER 1/2 TAB PO SCH (21:50)
[2019-04-09] MEDS: SIMVASTATIN 20 MG TAB PO SCH (21:50)
[2019-04-10] MEDS: CLOTRIMAZOLE 10 MG TROCHE PO SCH ×5 (05:50→21:16)
[2019-04-10 06:00] VITALS: BP 118/56
[2019-04-10 06:47] LABS: INR 2.74; PROTHROMBIN TIME 28.9 SECONDS (11.8-14.0)
[2019-04-10] MEDS: IPRATROPIUM 0.5MG/ALBUTEROL 2.5MG INH SOL UD 3ML (DUONEB)(J7620) NEB SCH ×3 (07:15→16:00)
[2019-04-10] MEDS: ASPIRIN 81 MG CHEW TABLET PO SCH (08:17)
[2019-04-10] MEDS: FUROSEMIDE 40 MG TAB PO SCH (08:17)
[2019-04-10] MEDS: PANTOPRAZOLE 40MG TAB (PROTONIX) PO SCH (08:17)
[2019-04-10] MEDS: ASCORBIC ACID 500 MG TAB PO SCH (08:17)
[2019-04-10] MEDS: FERROUS GLUCONATE 324 MG TAB PO SCH ×2 (08:17→21:16)
[2019-04-10] MEDS: AMIODARONE 200 MG TAB (PACERONE) PO SCH (08:17)
[2019-04-10] MEDS: NICOTINE 21MG/24HR 1 EA TRANSDERMAL TD SCH (08:18)
[2019-04-10] MEDS: METOPROLOL TART 12.5 MG PER 1/2 TAB PO SCH ×2 (08:18→21:00)
[2019-04-10] MEDS: POTASSIUM CHLORIDE 10 MEQ SR TABLET PO SCH (08:18)
[2019-04-10] MEDS: FOLIC ACID 1 MG TAB PO SCH (08:21)
[2019-04-10] MEDS: DOCUSATE SODIUM 100 MG CAP PO SCH ×2 (08:24→21:00)
--- NOTE | 2019-04-10 10:20 | IPNPDOC ---
PM&R Progress Note DATE OF SERVICE: Apr 10, 2019 [employer] Progress Note Subjective: Patient seen in therapy gym, stating he feels good. He sometimes has cramping in his calves and feels cold. but would like to hold off on getting a blood transfusion. REVIEW OF SYSTEMS: The following is a completed review of systems and has been reviewed. Review of systems otherwise unremarkable. PAIN: Patient self reports no pain EYES: No recent vision changes EARS, NOSE, & THROAT: No throat pain, or dysphagia, or rhinorrhea CARDIOVASCULAR: Denies chest pain or palpitations PULMONARY: Denies shortness of breath GASTROINTESTINAL: Denies constipation/diarrhea GENITOURINARY: denies dysuria MUSCULOSKELETAL: weakness NEUROLOGICAL:no tremor or seizure activity HEMATOLOGICAL: +anemia SKIN: sternotomy PSYCHIATRIC: Unremarkable All other review of systems found to be negative. PHYSICAL EXAMINATION: VITAL SIGNS: Please see below. GENERAL: Pleasant and cooperative. No acute distress. HEENT: PERRL. Extraocular movements intact. Clear conjunctiva CARDIOVASCULAR: Irregular rate and rhythm. No murmurs, rubs, or gallops LUNGS: Clear to auscultation bilaterally. No wheezes. No rhonchi ABDOMEN: Soft, nontender, nondistended. Positive bowel sounds. Normal active bowel sounds NEUROLOGICAL: Alert and oriented times three. Cranial nerves II through XII grossly intact. Sensation grossly intact EXTREMITIES: 5\5 strength bilateral upper extremities. 5\5 strength right lower extremity. 5/5 strength in left lower extremity. SKIN: sternotomy incision c/d/i LABORATORY DATA: Please see below. ASSESSMENT:64-year-old M with past medical history of HTN, HLD who presents status post emergnt CABG x4 with cardiogenic shock and respiratory failure requiring prolonged mechanical ventilation PLAN: 1. Rehab: PT- improve endurance, maintain LE ROM, energy conservation -OT limit UE strengthening, work on ADL tasks and use of adaptive equipment if necessary while maintaining sternal precautions - HR max 115-125 bpm, RPE max 11 2. Neuro: recent cardiogenic shock, avoid deliriogenic agents 3. Cardio: s/p anterior wall NSTEMI requiring urgent CABG x4 with systolic CHF- continue diuretic, ASA and Plavix- RQOUE on hold until ROLAND resolves- medicine consulted to assist with management, CXR concnerning for fluid overload, continue Lasix -Afib- c/u digoxin, amiodarone, and Coumadin- daily INR goal 2-3, lowered metoprolol to 12.5 mg BID for mild dizziness monitor -HLD- c/u statin -will refer to outpatient cardiac rehab -f/u with Dr. Almanza in 2-3 weeks - f/u Dr. Lechuga April 19, 9:45 am (cardiothoracic surgeon) 4. Resp: monitor for infection, heavy smoker, c/u breathing treatments and nicoderm patch 5. renal: recent ROLAND, will monitor 6. GI ppx protonix 7. DVT ppx: on Coumadin, TEDs 8. Heme: anemia, aptient declining blood transfusion at this time stating he is only mildly fatigued 8. Pain: Tylenol prn 9. ID: oral thrush c/u oral antifungal 7 days total 10. Insomnia: continue trazodone standing, will add extra prn dose 10. Dispo: goal to home, progressing quickly Allergies Coded Allergies: No Known Allergies (Unverified , 08/24/18) Vital Signs Vital Signs Date Time Temp Pulse Resp B/P (MAP) Pulse Ox O2 Delivery O2 Flow Rate FiO2 04/10/19 08:18 73 118/56 04/10/19 06:00 97.9 18 97 Laboratory Data Labs 24H Laboratory Tests 2 04/10/19 06:12: Prothrombin Time 28.9H, Prothromb Time International Ratio 2.74 Microbiology Microbiology 04/09/19 Stool Occult Blood (DAVID) - Final, Complete Current Medications Current Medications Current Medications Acetaminophen (Tylenol Tab) 650 mg Q4HP PRN PO fever/MILD PAIN (PS 1-4) Last administered on 04/05/19at 22:40; Start 04/05/19 at 18:30 Albuterol/ Ipratropium (Duoneb (Ipr 0.5mg/Alb 2.5mg)) 3 ml Q2HP PRN NEB SOB/WHEEZING; Start 04/06/19 at 15:45 Albuterol/ Ipratropium (Duoneb (Ipr 0.5mg/Alb 2.5mg)) 3 ml RQ8H NEB ; Start 04/06/19 at 16:00 Alprazolam (Xanax) 0.25 mg QHS PRN PO ANXIETY; Start 04/05/19 at 18:30; Stop 04/05/19 at 19:31; Status DC Amiodarone HCl (Pacerone, Cordarone) 400 mg DAILY PO Last administered on 04/10/19 08:17; Start 04/06/19 at 09:00 Ascorbic Acid (Vitamin C) 500 mg DAILY PO Last administered on 04/10/19at 08:17; Start 04/06/19 at 09:00 Aspirin (Aspirin Chewable) 81 mg DAILY PO Last administered on 04/10/19 08:17; Start 04/06/19 at 09:00 Clotrimazole (Mycelex) 10 mg 5XD PO Last administered on 04/10/19 08:17; Start 04/05/19 at 21:00 Digoxin (Lanoxin) 0.125 mg Q2D@0900 PO Last administered on 04/09/19 08:35; Start 04/07/19 at 09:00 Docusate Sodium (Colace) 100 mg BID PO Last administered on 04/09/19at 21:49; Start 04/05/19 at 21:00 Ferrous Gluconate (Fergon) 324 mg BID PO Last administered on 04/10/19 08:17; Start 04/05/19 at 21:00 Folic Acid (Folic Acid) 1 mg DAILY PO Last administered on 04/10/19 08:21; St art 04/06/19 at 09:00 Furosemide (LASIX injection) 20 mg DAILY IV ; Start 04/07/19 at 09:00; Status Cancel Furosemide (Lasix) 40 mg DAILY PO Last administered on 04/06/19at 08:34; Start 04/06/19 at 09:00; Stop 04/06/19 at 15:37; Status DC Furosemide (Lasix) 40 mg DAILY PO Last administered on 04/10/19 08:17; Start 04/07/19 at 12:00 Furosemide (Lasix) 40 mg DAILY PO ; Start 04/08/19 at 09:00; Stop 04/08/19 at 09:00; Status DC Home Med (Med Rec Complete!) ASDIRECTED XX ; Start 04/05/19 at 20:15; Stop 08/14 at 20:15; Status DC Metoprolol Tartrate (Lopressor) 12.5 mg BID PO Last administered on 04/10/19at 08:18; Start 04/09/19 at 21:00 Metoprolol Tartrate (Lopressor) 25 mg BID PO Last administered on 04/09/19 08:36; Start 04/05/19 at 21:00; Stop 04/09/19 at 14:53; Status DC Multivitamins (Theragram-M) 1 tab DAILY@1200 PO Last administered on 04/09/19 12:08; Start 04/06/19 at 12:00 Nicotine (Nicoderm Cq 21mg) 1 patch DAILY TD Last administered on 04/10/19 08:18; Start 04/06/19 at 09:00 Ondansetron HCl (Zofran) 4 mg Q6HP PRN PO NAUSEA; Start 04/05/19 at 18:30 Pantoprazole Sodium (Protonix) 40 mg DAILY PO Last administered on 04/10/19 08:17; Start 04/06/19 at 09:00 Potassium Chloride (Micro-K Extencaps) 10 meq DAILY PO Last administered on 04/10/19 08:18; Start 04/06/19 at 09:00 Senna (Senokot) 1 tab QHS PO Last administered on 04/09/19 21:49; Start 04/05/19 at 21:00 Simvastatin (Zocor) 20 mg QHS PO Last administered on 04/09/19 21:50; Start 04/05/19 at 21:00 Trazodone HCl (Desyrel) 25 mg QHSP PRN PO INSOMNIA; Start 04/07/19 at 02:00 Trazodone HCl (Desyrel) 50 mg QHS PO Last administered on 04/08/19 21:08; Start 04/05/19 at 21:00 Warfarin Sodium (Coumadin) 3 mg DAILY@17 PO Last administered on 04/09/19 16:13; Start 04/09/19 at 17:00 Warfarin Sodium (Coumadin) 4 mg DAILY@17 PO Last administered on 04/08/19 17:29; Start 04/06/19 at 17:00; Stop 04/09/19 at 10:24; Status DC JOHN PAUL FLYNN MD Apr 10, 2019 10:20
[2019-04-10] MEDS: MULTIVITAMINS/MINERALS THERAP 1 TAB PO SCH (12:14)
[2019-04-10 14:00] VITALS: BP 138/66
[2019-04-10] MEDS: WARFARIN SOD 3 MG TAB PO SCH (16:52)
[2019-04-10 20:00] VITALS: BP 109/56
[2019-04-10] MEDS: SENNA 8.6 MG TAB (SENOKOT) PO SCH (21:00)
[2019-04-10] MEDS: traZODone 50 MG TAB PO SCH (21:00)
[2019-04-10] MEDS: SIMVASTATIN 20 MG TAB PO SCH (21:16)
[2019-04-11] MEDS: CLOTRIMAZOLE 10 MG TROCHE PO SCH ×2 (05:42→09:00)
[2019-04-11 06:00] VITALS: BP 124/55
[2019-04-11] MEDS: IPRATROPIUM 0.5MG/ALBUTEROL 2.5MG INH SOL UD 3ML (DUONEB)(J7620) NEB SCH ×3 (06:25→16:00)
[2019-04-11 06:42] LABS: BASO % 0.5 % (0.0-1.0); EOS # 0.3 10^3/uL (0.0-0.50); EOS % 3.7 % (0.0-3.0); HEMATOCRIT 26.1 % (42.0-52.0); HEMOGLOBIN 8.2 g/dl (13.5-17.5); LYMPH # 1.7 10^3/uL (1.5-4.5); LYMPH % 20.1 % (24.0-44.0); MEAN CORPUSCULAR HEMOGLOBIN 31.5 pg (27.0-33.0); MEAN CORPUSCULAR HGB CONC 31.4 g/dl (32.0-36.5); MEAN CORPUSCULAR VOLUME 100.4 fl (80.0-96.0); MONO # 0.7 10^3/uL (0.0-0.8); MONO % 7.9 % (0.0-5.0); NEUTROPHILS # 5.6 10^3/uL (1.8-7.7); NEUTROPHILS % 67.2 % (36.0-66.0); PLATELET COUNT, AUTOMATED 332 10^3/uL (150-450); WHITE BLOOD COUNT 8.4 10^3/uL (4.0-10.0)
[2019-04-11 07:05] LABS: INR 2.71; PROTHROMBIN TIME 28.6 SECONDS (11.8-14.0)
[2019-04-11] MEDS: METOPROLOL TART 12.5 MG PER 1/2 TAB PO SCH ×2 (07:59→21:00)
[2019-04-11] MEDS: NICOTINE 14 MG/24 HR TRANSDERMAL TD SCH (08:59)
[2019-04-11] MEDS: DOCUSATE SODIUM 100 MG CAP PO SCH ×2 (08:59→21:15)
[2019-04-11] MEDS: FOLIC ACID 1 MG TAB PO SCH (09:00)
[2019-04-11] MEDS: FUROSEMIDE 40 MG TAB PO SCH (09:00)
[2019-04-11] MEDS: PANTOPRAZOLE 40MG TAB (PROTONIX) PO SCH (09:00)
[2019-04-11] MEDS: AMIODARONE 200 MG TAB (PACERONE) PO SCH (09:00)
[2019-04-11] MEDS: DIGOXIN 0.125 MG TAB PO SCH (09:00)
[2019-04-11] MEDS: FERROUS GLUCONATE 324 MG TAB PO SCH ×2 (09:00→21:15)
[2019-04-11] MEDS: ASPIRIN 81 MG CHEW TABLET PO SCH (09:00)
[2019-04-11] MEDS: POTASSIUM CHLORIDE 10 MEQ SR TABLET PO SCH (09:01)
[2019-04-11] MEDS: ASCORBIC ACID 500 MG TAB PO SCH (09:01)
--- NOTE | 2019-04-11 11:03 | IPNPDOC ---
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 He will go to cardiac rehab and is eager to go home. REVIEW OF SYSTEMS: The following is a completed review of systems and has been reviewed. Review of systems otherwise unremarkable. PAIN: Patient self reports no pain EYES: No recent vision changes EARS, NOSE, & THROAT: No throat pain, or dysphagia, or rhinorrhea CARDIOVASCULAR: Denies chest pain or palpitations PULMONARY: Denies shortness of breath GASTROINTESTINAL: Denies constipation/diarrhea GENITOURINARY: denies dysuria MUSCULOSKELETAL: weakness NEUROLOGICAL:no tremor or seizure activity HEMATOLOGICAL: +anemia SKIN: sternotomy PSYCHIATRIC: Unremarkable All other review of systems found to be negative. PHYSICAL EXAMINATION: VITAL SIGNS: Please see below. GENERAL: Pleasant and cooperative. No acute distress. HEENT: PERRL. Extraocular movements intact. Clear conjunctiva CARDIOVASCULAR: Irregular rate and rhythm. No murmurs, rubs, or gallops LUNGS: Clear to auscultation bilaterally. No wheezes. No rhonchi ABDOMEN: Soft, nontender, nondistended. Positive bowel sounds. Normal active bowel sounds NEUROLOGICAL: Alert and oriented times three. Cranial nerves II through XII grossly intact. Sensation grossly intact EXTREMITIES: 5\5 strength bilateral upper extremities. 5\5 strength right lower extremity. 5/5 strength in left lower extremity. SKIN: sternotomy incision c/d/i LABORATORY DATA: Please see below. ASSESSMENT:64-year-old M with past medical history of HTN, HLD who presents status post emergnt CABG x4 with cardiogenic shock and respiratory failure requiring prolonged mechanical ventilation PLAN: 1. Rehab: PT- improve endurance, maintain LE ROM, energy conservation, room privileges -OT limit UE strengthening, work on ADL tasks and use of adaptive equipment if necessary while maintaining sternal precautions - HR max 115-125 bpm, RPE max 11 2. Neuro: recent cardiogenic shock, avoid deliriogenic agents 3. Cardio: s/p anterior wall NSTEMI requiring urgent CABG x4 with systolic CHF- continue diuretic, ASA and Plavix- ROQUE on hold until ROLAND resolves- medicine consulted to assist with management, CXR concnerning for fluid overload, continue Lasix -Afib- c/u digoxin, amiodarone, and Coumadin- daily INR goal 2-3, lowered metoprolol to 12.5 mg BID for mild dizziness monitor -HLD- c/u statin -will refer to outpatient cardiac rehab -f/u with Dr. Almanza in 2-3 weeks - f/u Dr. Lechuga April 19, 9:45 am (cardiothoracic surgeon) 4. Resp: monitor for infection, heavy smoker, c/u breathing treatments and nicoderm patch 5. renal: recent ROLAND, will monitor 6. GI ppx protonix 7. DVT ppx: on Coumadin, TEDs 8. Heme: anemia, aptient declining blood transfusion at this time stating he is only mildly fatigued 8. Pain: Tylenol prn 9. ID: oral thrush s/p oral antifungal 7 10. Insomnia: continue trazodone standing, will add extra prn dose 10. Dispo: goal to home, progressing quickly, to home 04/12 Allergies Coded Allergies: No Known Allergies (Unverified , 08/24/18) Vital Signs Vital Signs Date Time Temp Pulse Resp B/P (MAP) Pulse Ox O2 Delivery O2 Flow Rate FiO2 04/11/19 09:00 67 04/11/19 07:59 109/56 04/11/19 06:00 96.9 18 94 Laboratory Data CBC/BMP Laboratory Tests 04/11/19 06:29 Red Blood Count 2.60 L, Mean Corpuscular Volume 100.4 H, Mean Corpuscular Hemoglobin 31.5, Mean Corpuscular Hemoglobin Concent 31.4 L, Red Cell Distribution Width 16.1 H, Neutrophils (%) (Auto) 67.2 H, Lymphocytes (%) (Auto) 20.1 L, Monocytes (%) (Auto) 7.9 H, Eosinophils (%) (Auto) 3.7 H, Basophils (%) (Auto) 0.5, Neutrophils # (Auto) 5.6, Lymphocytes # (Auto) 1.7, Monocytes # (Auto) 0.7, Eosinophils # (Auto) 0.3, Basophils # (Auto) 0.0 Labs 24H Laboratory Tests 2 04/11/19 06:29: Immature Granulocyte % (Auto) 0.6, White Blood Count 8.4, Red Blood Count 2.60L, Hemoglobin 8.2L, Hematocrit 26.1L, Mean Corpuscular Volume 100.4H, Mean Corpuscular Hemoglobin 31.5, Mean Corpuscular Hemoglobin Concent 31.4L, Red Cell Distribution Width 16.1H, Platelet Count 332, Neutrophils (%) (Auto) 67.2H, Lymphocytes (%) (Auto) 20.1L, Monocytes (%) (Auto) 7.9H, Eosinophils (%) (Auto) 3.7H, Basophils (%) (Auto) 0.5, Neutrophils # (Auto) 5.6, Lymphocytes # (Auto) 1.7, Monocytes # (Auto) 0.7, Eosinophils # (Auto) 0.3, Basophils # (Auto) 0.0, Nucleated Red Blood Cells % (auto) 0.0, Prothrombin Time 28.6H, Prothromb Time International Ratio 2.71 Microbiology Microbiology 04/09/19 Stool Occult Blood (DAVID) - Final, Complete Current Medications Current Medications Current Medications Acetaminophen (Tylenol Tab) 650 mg Q4HP PRN PO fever/MILD PAIN (PS 1-4) Last administered on 04/05/19at 22:40; Start 04/05/19 at 18:30 Albuterol/ Ipratropium (Duoneb (Ipr 0.5mg/Alb 2.5mg)) 3 ml Q2HP PRN NEB SOB/WHEEZING; Start 04/06/19 at 15:45 Albuterol/ Ipratropium (Duoneb (Ipr 0.5mg/Alb 2.5mg)) 3 ml RQ8H NEB ; Start 04/06/19 at 16:00 Alprazolam (Xanax) 0.25 mg QHS PRN PO ANXIETY; Start 04/05/19 at 18:30; Stop 04/05/19 at 19:31; Status DC Amiodarone HCl (Pacerone, Cordarone) 400 mg DAILY PO Last administered on 04/11/19at 09:00; Start 04/06/19 at 09:00 Ascorbic Acid (Vitamin C) 500 mg DAILY PO Last administered on 04/11/19at 09:01; Start 04/06/19 at 09:00 Aspirin (Aspirin Chewable) 81 mg DAILY PO Last administered on 04/11/19at 09:00; Start 04/06/19 at 09:00 Clotrimazole (Mycelex) 10 mg 5XD PO Last administered on 04/11/19at 09:00; Start 04/05/19 at 21:00 Digoxin (Lanoxin) 0.125 mg Q2D@0900 PO Last administered on 04/11/19 09:00; Start 04/07/19 at 09:00 Docusate Sodium (Colace) 100 mg BID PO Last administered on 04/11/19at 08:59; Start 04/05/19 at 21:00 Ferrous Gluconate (Fergon) 324 mg BID PO Last administered on 04/11/19at 09:00; Start 04/05/19 at 21:00 Folic Acid (Folic Acid) 1 mg DAILY PO Last administered on 04/11/19 09:00; Start 04/06/19 at 09:00 Furosemide (LASIX injection) 20 mg DAILY IV ; Start 04/07/19 at 09:00; Status Cancel Furosemide (Lasix) 40 mg DAILY PO Last administered on 04/06/19at 08:34; Start 04/06/19 at 09:00; Stop 04/06/19 at 15:37; Status DC Furosemide (Lasix) 40 mg DAILY PO Last administered on 04/11/19at 09:00; Start 04/07/19 at 12:00 Furosemide (Lasix) 40 mg DAILY PO ; Start 04/08/19 at 09:00; Stop 04/08/19 at 09:00; Status DC Home Med (Med Rec Complete!) ASDIRECTED XX ; Start 04/05/19 at 20:15; Stop 04/05/19 at 20:15; Status DC Metoprolol Tartrate (Lopressor) 12.5 mg BID PO Last administered on 04/10/19at 08:18; Start 04/09/19 at 21:00 Metoprolol Tartrate (Lopressor) 25 mg BID PO Last administered on 04/09/19at 08:36; Start 04/05/19 at 21:00; Stop 04/09/19 at 14:53; Status DC Multivitamins (Theragram-M) 1 tab DAILY@1200 PO Last administered on 04/10/19at 12:14; Start 04/06/19 at 12:00 Nicotine (Nicoderm Cq 14mg) 1 patch DAILY TD Last administered on 04/11/19at 08:59; Start 04/11/19 at 09:00 Nicotine (Nicoderm Cq 21mg) 1 patch DAILY TD Last administered on 04/10/19 08:18; Start 04/06/19 at 09:00; Stop 04/10/19 at 13:47; Status DC Ondansetron HCl (Zofran) 4 mg Q6HP PRN PO NAUSEA; Start 04/05/19 at 18:30 Pantoprazole Sodium (Protonix) 40 mg DAILY PO Last administered on 04/11/19 09:00; Start 04/06/19 at 09:00 Potassium Chloride (Micro-K Extencaps) 10 meq DAILY PO Last administered on 04/11/19 09:01; Start 04/06/19 at 09:00 Senna (Senokot) 1 tab QHS PO Last administered on 04/09/19 21:49; Start 04/05/19 at 21:00 Simvastatin (Zocor) 20 mg QHS PO Last administered on 04/10/19 21:16; Start 04/05/19 at 21:00 Trazodone HCl (Desyrel) 25 mg QHSP PRN PO INSOMNIA; Start 04/07/19 at 02:00 Trazodone HCl (Desyrel) 50 mg QHS PO Last administered on 04/08/19 21:08; Start 04/05/19 at 21:00 Warfarin Sodium (Coumadin) 3 mg DAILY@17 PO Last administered on 04/09/19 16:13; Start 04/09/19 at 17:00; Stop 04/10/19 at 16:43; Status DC Warfarin Sodium (Coumadin) 3 mg DAILY@17 PO Last administered on 04/10/19 16:52; Start 04/10/19 at 17:00 Warfarin Sodium (Coumadin) 4 mg DAILY@17 PO Last administered on 04/08/19 17:29; Start 04/06/19 at 17:00; Stop 04/09/19 at 10:24; Status DC JOHN PAUL FLYNN MD Apr 11, 2019 11:03
[2019-04-11] MEDS: MULTIVITAMINS/MINERALS THERAP 1 TAB PO SCH (11:24)
[2019-04-11 14:00] VITALS: BP 129/53
[2019-04-11] MEDS ORDERED: diphenhydrAMINE 25 MG CAP PO ONE (14:15)
[2019-04-11] MEDS ORDERED: ACETAMINOPHEN TAB 650MG DOSE (2X325MG) PO ONE (14:15)
[2019-04-11] MEDS ORDERED: FUROSEMIDE 20 MG/2 ML VIAL (J1940) IV ONE (14:15)
[2019-04-11] MEDS ORDERED: AMIO200T PO (14:18)
[2019-04-11] MEDS ORDERED: KLOR10TA76 PO (14:18)
[2019-04-11] MEDS ORDERED: SIMV20TA2 PO (14:18)
[2019-04-11] MEDS ORDERED: ASPI81CH8 PO (14:18)
[2019-04-11] MEDS ORDERED: FERR32TA PO (14:18)
[2019-04-11] MEDS ORDERED: PANT40TA3 PO (14:18)
[2019-04-11] MEDS ORDERED: METO1TAB87 PO (14:18)
[2019-04-11] MEDS ORDERED: FOLI1TAB11 PO (14:18)
[2019-04-11] MEDS ORDERED: COUM1TAB19 PO (14:18)
[2019-04-11] MEDS ORDERED: NICO14PA TD (14:18)
[2019-04-11] MEDS ORDERED: DIGO0.12 PO (14:18)
[2019-04-11] MEDS ORDERED: FURO40TA2 PO (14:18)
[2019-04-11] MEDS: WARFARIN SOD 3 MG TAB PO SCH (16:28)
[2019-04-11 17:05] VITALS: BP 127/62
[2019-04-11 19:30] VITALS: BP 108/59
[2019-04-11] MEDS: traZODone 50 MG TAB PO SCH (21:00)
[2019-04-11] MEDS: SENNA 8.6 MG TAB (SENOKOT) PO SCH (21:15)
[2019-04-11] MEDS: SIMVASTATIN 20 MG TAB PO SCH (21:15)
[2019-04-12] MEDS: IPRATROPIUM 0.5MG/ALBUTEROL 2.5MG INH SOL UD 3ML (DUONEB)(J7620) NEB SCH
[2019-04-12 06:00] VITALS: BP 113/53
[2019-04-12 07:05] LABS: BASO # 0.1 10^3/uL (0.0-0.2); BASO % 0.7 % (0.0-1.0); EOS # 0.4 10^3/uL (0.0-0.50); EOS % 4.4 % (0.0-3.0); HEMOGLOBIN 9.4 g/dl (13.5-17.5); LYMPH # 1.9 10^3/uL (1.5-4.5); LYMPH % 22.1 % (24.0-44.0); MEAN CORPUSCULAR HGB CONC 31.3 g/dl (32.0-36.5); MONO # 0.7 10^3/uL (0.0-0.8); MONO % 7.5 % (0.0-5.0); NEUTROPHILS # 5.6 10^3/uL (1.8-7.7); NEUTROPHILS % 64.8 % (36.0-66.0); PLATELET COUNT, AUTOMATED 325 10^3/uL (150-450); RED BLOOD COUNT 2.94 10^6/uL (4.30-6.10); WHITE BLOOD COUNT 8.6 10^3/uL (4.0-10.0)
[2019-04-12 07:31] LABS: INR 2.63
[2019-04-12] MEDS: NICOTINE 14 MG/24 HR TRANSDERMAL TD SCH (08:55)
[2019-04-12] MEDS: PANTOPRAZOLE 40MG TAB (PROTONIX) PO SCH (08:55)
[2019-04-12] MEDS: FOLIC ACID 1 MG TAB PO SCH (08:55)
[2019-04-12] MEDS: ASPIRIN 81 MG CHEW TABLET PO SCH (08:55)
[2019-04-12] MEDS: DOCUSATE SODIUM 100 MG CAP PO SCH (08:55)
[2019-04-12] MEDS: POTASSIUM CHLORIDE 10 MEQ SR TABLET PO SCH (08:55)
[2019-04-12] MEDS: FUROSEMIDE 40 MG TAB PO SCH (08:55)
[2019-04-12] MEDS: FERROUS GLUCONATE 324 MG TAB PO SCH (08:55)
[2019-04-12] MEDS: ASCORBIC ACID 500 MG TAB PO SCH (08:55)
[2019-04-12 08:56] VITALS: BP 113/53
[2019-04-12] MEDS: METOPROLOL TART 12.5 MG PER 1/2 TAB PO SCH (08:56)
[2019-04-12] MEDS: AMIODARONE 200 MG TAB (PACERONE) PO SCH (08:56)
--- NOTE | 2019-04-21 15:09 | PMRDS ---
DATE OF ADMISSION: 04/05/2019 DATE OF DISCHARGE: 04/12/2019 CHIEF COMPLAINT/DISCHARGE DIAGNOSIS: Status post coronary artery bypass graft (CABG). HISTORY OF PRESENT ILLNESS: A 64-year-old male with a past medical history of morbid obesity, unstable angina, systolic congestive heart failure (CHF) with an ejection fraction of 30-35%, tobacco use, hypertension, admitted to [facility] on 03/19/2019 for urgent cardiac catheterization with Impella placement in the setting on an [id number] myocardial infarction (NSTEMI). He underwent a coronary artery bypass graft (CABG) times four vessels on 03/20/2019 and was managed postoperatively in the intensive care unit (ICU) for cardiogenic shock requiring multiple pressors and respiratory failure requiring mechanical ventilation. He developed atrial fibrillation and was unable to be cardioverted. Later, he had postoperative ileus, for which she was made nothing by mouth and a rectal tube was placed. He had suspected intra-abdominal infection and treated with antibiotics; however, blood cultures were negative. His INR was monitored with the addition of Coumadin for his new onset atrial fibrillation. He had persistent leukocytosis, with a white blood cell count of 11.1 and anemia with a hemoglobin 8.1 on 04/05/2019. His angiotensin-converting enzyme (ROQUE) inhibitor medication was held due to worsening kidney function with acute kidney injury (ROLAND). He was evaluated by therapy, noted to have dizziness with ambulation, which he reports is chronic in nature. He was also noted to be overall weaker and deemed medically appropriate for discharge to acute rehabilitation unit (ARU) on 04/05/2019. PAST MEDICAL HISTORY: As per history of present illness (HPI). HOSPITAL COURSE: Patient was admitted and enrolled in a comprehensive physical therapy (PT)/occupational therapy (OT) program. He received 24-hour nursing supervision and weekly team meetings were held to discuss his progress. During his hospital course, patient maintained his external precautions and was able to maintain a maximum heart rate well below the limits of 115-125 beats per minute. Patient was maintained on Coumadin and his metoprolol dose was lowered a 12.5 twice a day for mild dizziness. He asked for a decrease in his Nicoderm patch dosing and was counseled on smoking cessation and agreed to discontinue smoking upon discharge. Patient had persistent low blood count around 8 and ultimately did receive one transfusion. He finished up a course of oral antifungal medication for thrush and was treated with trazodone for his insomnia. Patient made good gains in therapy and was deemed medically and functionally stable to return home on 04/12/2019 with outpatient cardiac therapy. DISCHARGE MEDICATIONS; As per discharge instructions. FUNCTION HISTORY. On discharge, patient was independent in all functional transfers, able to ambulate modified independent with a walker 300 feet independently. In occupational therapy he was able to sponge bathe himself without assistance, able to cook without assistance and dress and toilet without assistance. Thank you for this referral.
[2019-04-26] MEDS ORDERED: METO1TAB87 PO (09:16)
[2019-04-26] MEDS ORDERED: AMIO200T PO (09:17)
[2019-04-26] MEDS ORDERED: VITA500C24 PO (09:17)
[2019-04-26] MEDS ORDERED: DIGO0.12 PO (09:18)
== END 2019-04-12 11:55 | disposition home or self-care (01) | DRG 861 ==
LOC: M PM&R 18:40
PROVIDERS: ADMIT Physical Medicine & Rehabilitation; ATTEND Physical Medicine & Rehabilitation
DX: R53.1 Weakness (principal); I21.4 Non-ST elevation (NSTEMI) myocardial infarction; B37.0 Candidal stomatitis; Z68.41 Body mass index [BMI] 40.0-44.9, adult; I13.0 Hypertensive heart and chronic kidney disease with heart failure and stage 1 through stage 4 chronic kidney disease, or unspecified chronic kidney disease; E66.01 Morbid (severe) obesity due to excess calories; I50.22 Chronic systolic (congestive) heart failure; N18.3 Chronic kidney disease, stage 3 (moderate); E78.5 Hyperlipidemia, unspecified; D64.9 Anemia, unspecified; F17.200 Nicotine dependence, unspecified, uncomplicated; I25.5 Ischemic cardiomyopathy; G47.00 Insomnia, unspecified; I48.0 Paroxysmal atrial fibrillation; Z79.01 Long term (current) use of anticoagulants; Z79.82 Long term (current) use of aspirin; Z79.899 Other long term (current) drug therapy; Z95.1 Presence of aortocoronary bypass graft; Z95.0 Presence of cardiac pacemaker; Z48.812 Encounter for surgical aftercare following surgery on the circulatory system

== ENCOUNTER → 2019-05-23 | Outpatient (REF) | payer BC ==
[~2019-05-23] MED LIST changes: +ACET1TAB55 PO; +ALPR0.25 PO; +AMIO200T PO; +ASCO500T PO; +ASPI81CH8 PO; +CLOT10TR PO; +COUM1TAB19 PO; +DIGO0.12 PO; +ECOT81TA5 PO; +FERR325T16 PO; +FERR32TA PO; +FOLI1TAB11 PO; +FURO20TA2 PO; +FURO40TA2 PO; +KLOR10TA76 PO; -LISI20TA PO; +LISI20TA18 PO; +METO1TAB87 PO; +MM S100C PO; +NICO14PA TD; +NICO21DI37 TD; +PANT40TA3 PO; +POTA10TA17 PO; +VITA500C24 PO; +WARF-20 PO
[2019-05-23 13:05] LABS: BASO # 0.1 10^3/uL (0.0-0.2); BASO % 0.8 % (0.0-1.0); EOS # 0.5 10^3/uL (0.0-0.50); EOS % 4.6 % (0.0-3.0); HEMATOCRIT 40.5 % (42.0-52.0); HEMOGLOBIN 12.9 g/dl (13.5-17.5); LYMPH % 19.3 % (24.0-44.0); MEAN CORPUSCULAR HEMOGLOBIN 31.5 pg (27.0-33.0); MEAN CORPUSCULAR HGB CONC 31.9 g/dl (32.0-36.5); MONO # 0.7 10^3/uL (0.0-0.8); MONO % 7.1 % (0.0-5.0); NEUTROPHILS # 7.1 10^3/uL (1.8-7.7); NEUTROPHILS % 67.7 % (36.0-66.0); PLATELET COUNT, AUTOMATED 241 10^3/uL (150-450); RED BLOOD COUNT 4.09 10^6/uL (4.30-6.10); WHITE BLOOD COUNT 10.5 10^3/uL (4.0-10.0)
[2019-05-23 13:21] LABS: HEMOGLOBIN A1c 5.9 %
[2019-05-23 13:30] LABS: ALBUMIN 3.6 GM/DL (3.2-5.2); BILIRUBIN,TOTAL 0.3 MG/DL (0.2-1.0); CALCIUM LEVEL 8.5 MG/DL (8.8-10.2); CHOLESTEROL RISK RATIO 4.378 (<5); CREATININE FOR GFR 1.6 MG/DL (0.70-1.30); FREE T4 1.04 NG/DL (0.76-1.46); GLOMERULAR FILTRATION RATE 46.9 (>49); POTASSIUM SERUM 3.9 MEQ/L (3.5-5.1); THYROID STIMULATING HORMONE 2.62 uIU/ML (0.358-3.740); TOTAL PROTEIN 6.8 GM/DL (6.4-8.2)
[2019-05-25 00:06] LABS: Lyme Disease IgG/IgM Antibodie <0.91 ISR (0.00-0.90); Lyme Disease IgM Ab Quantitati <0.80 index (0.00-0.79)
== END ==
LOC: M LAB REF 12:29
PROVIDERS: ATTEND Family Medicine
DX: Z12.5 Encounter for screening for malignant neoplasm of prostate (principal); Z13.228 Encounter for screening for other metabolic disorders; I25.810 Atherosclerosis of coronary artery bypass graft(s) without angina pectoris; E11.9 Type 2 diabetes mellitus without complications; E88.81 Metabolic syndrome and other insulin resistance

== ENCOUNTER 2019-05-24 13:06 | Outpatient (RCR) | payer BC ==
--- NOTE | 2019-04-26 09:34 | CARECAPL ---
Assessment Account #s: Initial Assessment General Diagnoses: CABG, NSTEMI Date of event: Mar 20, 2019 Physician: Erika Almanza MD Allergies: Coded Allergies: No Known Allergies (Unverified , 08/24/18) Date Entered Program: Apr 26, 2019 Risk strat for cardiac event: High Exercise Date: Apr 26, 2019 Assessment: Initial Assessment Exercise Prescription Plan to provide a monitored exercise program to build strength and endurance and to educate about cardiac disease and risk factors Modalities initiated: Treadmill (will add), Nustep (will add), Arm Aerometer (will add), Dumbells (will add), Recumbent Bike (will add) Frequency: 2-3 Duration (Minutes) 30-60 minutes total exercise a day. 8-15 work intervals in minutes. as needed - rest intervals in minutes. Functional Capacity Goal Sustained Metabolic Equivalent of a task (MET) goal of 3.0-4.0 for 15-20 minutes. Intensity: 3-Moderate Progression (METS) Increase by: .5 METS every: 2-3 sessions Angina with ex: No Target Heart Rate rest +35-40 betablocker therapy Resistance Training: Yes Reps: 6-8 Hypertension: Yes Hypertension controlled with: Medication Resting 138/65 Meds see below Medications Scheduled Amiodarone HCl (Amiodarone HCl), 200 MG PO DAILY, (Reported) Amiodarone HCl (Amiodarone HCl), 200 MG PO DAILY, (Reported) Ascorbic Acid (Ascorbic Acid), 500 MG PO DAILY, (Reported) Ascorbic Acid (Vitamin C), 500 MG PO DAILY, (Reported) Aspirin (Ecotrin), 81 MG PO DAILY, (Reported) Digoxin (Digoxin), 125 MCG PO DAILY, (Reported) Ferrous Gluconate (Ferrous Gluconate), 324 MG PO BID, (Reported) Folic Acid (Folic Acid), 1 MG PO DAILY, (Reported) Furosemide (Furosemide), 40 MG PO DAILY Metoprolol Tartrate (Metoprolol Tartrate), 25 MG PO BID, (Reported) Multivitamin (Multivitamins), 1 CAP PO DAILY, (Reported) Nicotine (Nicotine Patch), 1 PATCH TD DAILY Pantoprazole Sodium (Pantoprazole Sodium), 40 MG PO DAILY Potassium Chloride (Potassium Chloride), 10 MEQ PO DAILY, (Reported) Simvastatin (Simvastatin), 20 MG PO DAILY, (Reported) Warfarin Sodium (Coumadin), 3 MG PO DAILY@17 Scheduled PRN Acetaminophen (Acetaminophen), 650 MG PO Q4H PRN for FEVER, (Reported) Docusate Sodium (Stool Softener), 100 MG PO BID PRN for CONSTIPATION, (Reported) Discontinued Medications Amiodarone HCl (Amiodarone HCl), 200 MG PO DAILY Discontinued Reason: Pt states not taking Aspirin (Children's Aspirin), 81 MG PO DAILY Discontinued Reason: Pt states not taking Digoxin (Digoxin), 125 MCG PO Q2D, (Reported) Discontinued Reason: Pt states not taking Digoxin (Digoxin), 0.125 MG PO Q2D@0900 Discontinued Reason: Pt states not taking Ferrous Gluconate (Ferrous Gluconate), 324 MG PO BID Discontinued Reason: Pt states not taking Folic Acid (Folic Acid), 1 MG PO DAILY Discontinued Reason: Pt states not taking Metoprolol Tartrate (Metoprolol Tartrate), 12.5 MG PO BID Discontinued Reason: Re-entering as new Potassium Chloride (Klor-Con M10), 10 MEQ PO DAILY Discontinued Reason: Pt states not taking Simvastatin (Simvastatin), 20 MG PO QHS Discontinued Reason: Pt states not taking Target Goals Individual exercise Rx (1) BP 140/90 or 130/80 if DM or CKD (1) Aerobic active 30+min 5 days per week (1) Nutrition Date: Apr 26, 2019 Assessment: Initial Assessment Lipid- med/supplement Simvastatin Diabetes Diabetes: Yes (diet controlled at this time-requested bloodwork) Diabetes medication none at this time Monitor Blood Sugar at home: No Weight Management Weight (lbs): 275.2 Height (inches): 68 Waist Circumference (Inches): 53 BMI: 44.4 Weight goal: 225 Special Diet: low salt, mediteranean diet, low-fat Vitamin/Supplements: Vitamin C Alcohol: none Diet Access Tool: Rate your plate Score: 41 Intervention Healthcare Administrator Consult: Yes Nurse/patient discussion: Yes Dietary Goals make better choices and smaller portions Diet Class: Yes (will attend during this program) Referral to Diabetes education: Yes Referral to lipid clinic: Yes Referral to weight mangement p: Yes Target goal LDL-C<100 if triglycerides are >200 Non-HDL-C should be <130 (1) LDL-C<70 for high risk patients (4) HbA1c<7% (1) BMI<25 Waist cir<40in M/<35in F (1) Education Date: Apr 26, 2019 Assessment: Initial Assessment Knowledge Test Score: 9 Family Support: Yes Tobacco use: No Quit: <6 months Tobacco Use Date quit: Mar 20, 2019 Cigarettes smoked per day: 20 Smokeless tobacco: No Intervention Referral to smoking cessation: Yes Individual education and couns: Yes Tobacco Adjunct: Yes (nicotine patch) Education class schedule given: Yes Attended education classes: Yes (will attend during this program) Target Goals Complete cessation of tobacco use (1). Psychosocial Date: Apr 26, 2019 Assessment: Initial Assessment Psych Test (Initial/Discharge) Tool Used: CESD (teary eyed when talking about event. States afraid to go to sleep.) Score: 8 Intervention Physician Consult: No Physician Referral: No Stress Management Class: Yes (will attend during program) Target Goal Assess presence or absence of depression using a valid screening tool (1). Maximize coping skills (2). Positive support system (2). Patient/Program Goal Preventative Medication: Yes Aspirin, Yes Beta blockade, Yes Statin/OTR lipid Lowering, Yes Other (coumadin) Fall Risk Assess: No Provider Assessment Session Number: 1 Provider Assessment: Proceed with rehab Lianne Hunter RN Apr 26, 2019 09:34
--- NOTE | 2019-05-21 15:47 | CARECAPL ---
Assessment Account #s: Re-Assessment I General Diagnoses: CABG Date of event: Mar 20, 2019 Physician: Erika Almanza MD Allergies: Coded Allergies: No Known Allergies (Unverified , 08/24/18) Date Entered Program: Apr 26, 2019 Risk strat for cardiac event: High Exercise Date: May 21, 2019 Assessment: Re-Assessment I Exercise Prescription Modalities initiated: Treadmill (1.8/1.5 mts 2.63 rpe 3), Nustep (L7 mts 4.2 rpe 3), Arm Aerometer, Recumbent Bike (R4 mts 4.3 rpe 2.5) Duration (Minutes) minutes total exercise a day. work intervals in minutes. rest intervals in minutes. Functional Capacity Goal Sustained Metabolic Equivalent of a task (MET) goal of 4.0-5.0 for 15-20 minutes. Intensity: 3-Moderate Progression (METS) Increase by: METS every: sessions Angina with ex: No Resistance Training: Yes Weight (pounds): 5 Reps: 8-12 Medications Scheduled Amiodarone HCl (Amiodarone HCl), 200 MG PO DAILY, (Reported) Amiodarone HCl (Amiodarone HCl), 200 MG PO DAILY, (Reported) Ascorbic Acid (Ascorbic Acid), 500 MG PO DAILY, (Reported) Ascorbic Acid (Vitamin C), 500 MG PO DAILY, (Reported) Aspirin (Ecotrin), 81 MG PO DAILY, (Reported) Digoxin (Digoxin), 125 MCG PO DAILY, (Reported) Ferrous Gluconate (Ferrous Gluconate), 324 MG PO BID, (Reported) Folic Acid (Folic Acid), 1 MG PO DAILY, (Reported) Furosemide (Furosemide), 40 MG PO DAILY Metoprolol Tartrate (Metoprolol Tartrate), 25 MG PO BID, (Reported) Multivitamin (Multivitamins), 1 CAP PO DAILY, (Reported) Nicotine (Nicotine Patch), 1 PATCH TD DAILY Pantoprazole Sodium (Pantoprazole Sodium), 40 MG PO DAILY Potassium Chloride (Potassium Chloride), 10 MEQ PO DAILY, (Reported) Simvastatin (Simvastatin), 20 MG PO DAILY, (Reported) Warfarin Sodium (Coumadin), 3 MG PO DAILY@17 Scheduled PRN Acetaminophen (Acetaminophen), 650 MG PO Q4H PRN for FEVER, (Reported) Docusate Sodium (Stool Softener), 100 MG PO BID PRN for CONSTIPATION, (Reported) Current BP 114/64 Med Change: No Intervention Home exercise: Type (walking, hand weights, join local gym), Frequency (3-5 times per week), Duration (30-60 minutes) Resistance Training: Yes (location, time to count) Education: Ex safety (hydration, comfortable shoes and clothing), S/S to report (dizziness, abnormal shortness of breath, chest discomfort), Low NA diet (1500- 2000mg per day), BP medication (complaince), RPE Scale (1-5 rating scale), Equipment orientation (reveiw of all equipment function), warm up/cool down (prevent injury), Understand BP (baseline bp and returning it to baseline after exercise), Physical Active (continue being physical on days off and after done with program) Education Goals Met: No (progressing toward goals) Target Goals Individual exercise Rx (1) BP 140/90 or 130/80 if DM or CKD (1) Aerobic active 30+min 5 days per week (1) Nutrition Date: May 21, 2019 Assessment: Re-Assessment I Stages of change: Contemplate Current Weight (pounds): 274 Weight Goal 200 Intervention Diet Class: Yes Education Eating Healthy (reviewed with compliance and control analyst) Education Goals Met: Yes Target goal LDL-C<100 if triglycerides are >200 Non-HDL-C should be <130 (1) LDL-C<70 for high risk patients (4) HbA1c<7% (1) BMI<25 Waist cir<40in M/<35in F (1) Education Date: May 21, 2019 Assessment: Re-Assessment I Intervention Education class schedule given: Yes Attended education classes: Yes Education: CAD, Risk factors (smoking, high cholesterol/lipids, seditary), med compliance (importance of taking medications), Angina S/S (sys/ use of nitro) Education Goals Met: No (progressing toward goals) Target Goals Complete cessation of tobacco use (1). Psychosocial Date: May 21, 2019 Assessment: Re-Assessment I Stress Management Class: Yes Uses Stress Management Skills: Yes Education Education: Coping Techniques (sleep, having someone to talk with, healthy diet) Education Goals Met: No (progressing toward goals) Target Goal Assess presence or absence of depression using a valid screening tool (1). Maximize coping skills (2). Positive support system (2). Provider Assessment Session Number: 7 Provider Assessment: No changes Lianne Hunter RN May 21, 2019 15:47
== END 2019-05-26 ==
LOC: M CR 13:06
PROVIDERS: ATTEND Internal Medicine Cardiovascular Disease
DX: Z95.1 Presence of aortocoronary bypass graft (principal)

== ENCOUNTER → 2019-06-25 | Outpatient (RCR) | payer BC ==
--- NOTE | 2019-06-18 09:18 | CARECAPL ---
Assessment Account #s: Re-Assessment II General Diagnoses: CABG Date of event: Mar 20, 2019 Allergies: Coded Allergies: No Known Allergies (Unverified , 08/24/18) Date Entered Program: Apr 26, 2019 Risk strat for cardiac event: High Exercise Date: Jun 18, 2019 Assessment: Re-Assessment II Stages of change: action Exercise Prescription Modalities initiated: Treadmill (2.0/1.5 mts 2.81 rpe 3 15 minutes), Nustep (L8 mts 7.0 rpe 3 15 minutes), Arm Aerometer (4.0 mts 4.0 rpe 3 10 minutes), Dumbells, Recumbent Bike (R6 mts 4.3 rpe 3.5 10 minutes) Duration (Minutes) 30 - 60 minutes total exercise a day. 15 - 20 work intervals in minutes. PRN rest intervals in minutes. Functional Capacity Goal Sustained Metabolic Equivalent of a task (MET) goal of 5.0-6.0 for 15-20 minutes. Progression (METS) Increase by: METS every: sessions Angina with ex: No Resistance Training: Yes Weight (pounds): 6 Reps: 8-12 Hypertension: Yes Hypertension controlled with: Medication Resting 150/86 Peak Exercise BP 160/80 Meds see below Medications Scheduled Amiodarone HCl (Amiodarone HCl), 200 MG PO DAILY, (Reported) Amiodarone HCl (Amiodarone HCl), 200 MG PO DAILY, (Reported) Ascorbic Acid (Ascorbic Acid), 500 MG PO DAILY, (Reported) Ascorbic Acid (Vitamin C), 500 MG PO DAILY, (Reported) Aspirin (Ecotrin), 81 MG PO DAILY, (Reported) Digoxin (Digoxin), 125 MCG PO DAILY, (Reported) Ferrous Gluconate (Ferrous Gluconate), 324 MG PO BID, (Reported) Folic Acid (Folic Acid), 1 MG PO DAILY, (Reported) Furosemide (Furosemide), 40 MG PO DAILY Metoprolol Tartrate (Metoprolol Tartrate), 25 MG PO BID, (Reported) Multivitamin (Multivitamins), 1 CAP PO DAILY, (Reported) Nicotine (Nicotine Patch), 1 PATCH TD DAILY Pantoprazole Sodium (Pantoprazole Sodium), 40 MG PO DAILY Potassium Chloride (Potassium Chloride), 10 MEQ PO DAILY, (Reported) Simvastatin (Simvastatin), 20 MG PO DAILY, (Reported) Warfarin Sodium (Coumadin), 3 MG PO DAILY@17 Scheduled PRN Acetaminophen (Acetaminophen), 650 MG PO Q4H PRN for FEVER, (Reported) Docusate Sodium (Stool Softener), 100 MG PO BID PRN for CONSTIPATION, (Reported) Current BP 122/78 after exercise Med Change: No Intervention Home exercise: Duration (see prior ITP for details on HEP) Resistance Training: Yes Education Goals Met: No (progressing toward goals-all topics covered, see prior ITP) Target Goals Individual exercise Rx (1) BP 140/90 or 130/80 if DM or CKD (1) Aerobic active 30+min 5 days per week (1) Nutrition Date: Jun 18, 2019 Assessment: Re-Assessment II Stages of change: Preperation Diabetes Diabetes: No Current Weight (pounds): 274 Weight Goal 200 Intervention 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 ) Target goal LDL-C<100 if triglycerides are >200 Non-HDL-C should be <130 (1) LDL-C<70 for high risk patients (4) HbA1c<7% (1) BMI<25 Waist cir<40in M/<35in F (1) Education Assessment: Re-Assessment II Family Support: Yes Education Goals Met: No (progressing toward goals. See prior ITP for education covered) Target Goals Complete cessation of tobacco use (1). Psychosocial Date: Jun 18, 2019 Assessment: Re-Assessment II Uses Stress Management Skills: Yes Education Goals Met: No (progressing toward goals. See Prior ITP for education covered) Target Goal Assess presence or absence of depression using a valid screening tool (1). Maximize coping skills (2). Positive support system (2). Provider Assessment Session Number: 13 Provider Assessment: No changes (good attendance, excellent attitude toward exercise. Needs coaching for healthy eating style) Lianne Hunter RN Jun 18, 2019 09:18
[~2019-06-25] MED LIST changes: -LISI20TA18 PO; +LISI20TA19 PO
== END ==
LOC: M CR 05-30 13:57
PROVIDERS: ATTEND Internal Medicine Cardiovascular Disease
DX: Z95.1 Presence of aortocoronary bypass graft (principal)

== ENCOUNTER 2019-07-23 11:18 | Outpatient (RCR) | payer BC ==
--- NOTE | 2019-07-09 17:28 | CARECAPL ---
Assessment Account #s: Re-Assessment II (REASSESSMENT III) General Diagnoses: CABG Date of event: Mar 20, 2019 Physician: Erika Almanza MD Allergies: Coded Allergies: No Known Allergies (Unverified , 08/24/18) Date Entered Program: Apr 26, 2019 Risk strat for cardiac event: High Exercise Date: Jul 09, 2019 Assessment: Re-Assessment II (REASSESSMENT III) Stages of change: action Exercise Prescription Plan TO EDUCATE AND BUILD ENDURANCE THROUGH MONITORED EXERCISE Modalities initiated: Treadmill (METS=3.5/RPE=3.5), Nustep (METS=4.2/RPE=3.5), Arm Aerometer (METS=4.2/RPE=3.5), Dumbells (8#/RPE=3.5), Recumbent Bike (METS=4.0/RPE=3.5) Frequency: 3 Duration (Minutes) 30 - 60 minutes total exercise a day. 15 - 20 work intervals in minutes. PRN rest intervals in minutes. Functional Capacity Goal Sustained Metabolic Equivalent of a task (MET) goal of 5.0-6.0 for 15-20 minutes. Intensity: 3-Moderate Progression (METS) Increase by: METS every: sessions Angina with ex: No Target Heart Rate REST +35-40 BASED ON BETA CAROLYNN THERAPY Resistance Training: Yes Weight (pounds): 8 Reps: 12-15 Hypertension: Yes Hypertension controlled with: Medication (METOPROLOL) Resting 120/70 Peak Exercise BP 158/90 Medications Scheduled Amiodarone HCl (Amiodarone HCl), 200 MG PO DAILY, (Reported) Amiodarone HCl (Amiodarone HCl), 200 MG PO DAILY, (Reported) Ascorbic Acid (Ascorbic Acid), 500 MG PO DAILY, (Reported) Ascorbic Acid (Vitamin C), 500 MG PO DAILY, (Reported) Aspirin (Ecotrin), 81 MG PO DAILY, (Reported) Digoxin (Digoxin), 125 MCG PO DAILY, (Reported) Ferrous Gluconate (Ferrous Gluconate), 324 MG PO BID, (Reported) Folic Acid (Folic Acid), 1 MG PO DAILY, (Reported) Furosemide (Furosemide), 40 MG PO DAILY Metoprolol Tartrate (Metoprolol Tartrate), 25 MG PO BID, (Reported) Multivitamin (Multivitamins), 1 CAP PO DAILY, (Reported) Nicotine (Nicotine Patch), 1 PATCH TD DAILY Pantoprazole Sodium (Pantoprazole Sodium), 40 MG PO DAILY Potassium Chloride (Potassium Chloride), 10 MEQ PO DAILY, (Reported) Simvastatin (Simvastatin), 20 MG PO DAILY, (Reported) Warfarin Sodium (Coumadin), 3 MG PO DAILY@17 Scheduled PRN Acetaminophen (Acetaminophen), 650 MG PO Q4H PRN for FEVER, (Reported) Docusate Sodium (Stool Softener), 100 MG PO BID PRN for CONSTIPATION, (Reported) Current BP 122/78 Med Change: No (SEE PRIOR ITP FOR HOME EXERCISE PLAN) Intervention Resistance Training: Yes Education: Self pulse (SEE PRIOR ITP FOR EDUCATION) Education Goals Met: Yes (PROGRESSING TOWARD GOALS) Target Goals Individual exercise Rx (1) BP 140/90 or 130/80 if DM or CKD (1) Aerobic active 30+min 5 days per week (1) Nutrition Date: Jul 09, 2019 Assessment: Re-Assessment II (REASSESSMENT III) Stages of change: action Lipid- med/supplement SIMVASTATIN 20 MG DAILY Med Change: No Diabetes Diabetes: No Monitor Blood Sugar at home: No Medication Change: No Weight Management Weight (lbs): 282 Special Diet: low salt Vitamin/Supplements: Multivitamin, Vitamin C Current Weight (pounds): 282 Weight Goal 200 Intervention Director Of Market Analysis Consult: No Nurse/patient discussion: Yes Dietary Goals TO MAKE HEART HEALTHY CHOICES, LESS SALT, HEALTHIER SNACKS 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: Yes (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) Referral to Diabetes education: No Referral to lipid clinic: No Referral to weight mangement p: No Education Eating Healthy Education Goals Met: No (CONTINUES TO GAIN WEIGHT AFTER HE STOPPED SMOKING, DIF FICULT CHANGING HIS EATING HABITS) Target goal LDL-C<100 if triglycerides are >200 Non-HDL-C should be <130 (1) LDL-C<70 for high risk patients (4) HbA1c<7% (1) BMI<25 Waist cir<40in M/<35in F (1) Education Date: Jul 09, 2019 Assessment: Re-Assessment II (REASSESSMENT III) Learning Barriers: ready Stages of change: action Family Support: Yes Tobacco use: No Quit: <6 months Tobacco Use Smokeless tobacco: No Intervention Referral to smoking cessation: No Individual education and couns: No Tobacco Adjunct: No Education class schedule given: No Attended education classes: No Education: tobacco triggers (SEE PRIOR ITP FOR EDUCATION) Education Goals Met: Yes (PROGRESSING TOWARD GOALS, NEEDS CONTINUED REINFORCEMENT FOR HEART HEALTHY DIET) Target Goals Complete cessation of tobacco use (1). Psychosocial Date: Jul 09, 2019 Assessment: Re-Assessment II (REASSESSMENT III) Stages of change: action Intervention Physician Consult: No Physician Referral: No Med Change: No Stress Management Class: No Uses Stress Management Skills: Yes Education Education: Coping Techniques, S/S depression, Relaxation Techniques (SEE PRIOR ITP) Education Goals Met: Yes (PROGRESSING TOWARD GOALS, GOOD ATTENDENCE, GOOD EFFORT WITH EXERCISE, NEEDS CONTINUED REINFORCEMENT FOR HEART HEALTHY DIET) Target Goal Assess presence or absence of depression using a valid screening tool (1). Maximize coping skills (2). Positive support system (2). Patient/Program Goal Preventative Medication: Yes Aspirin, Yes Beta blockade, Yes Statin/OTR lipid Lowering Fall Risk Assess: Yes (NOT A FALL RISK) Provider Assessment Session Number: 20 Provider Assessment: Proceed with rehab Yaron Pichardo RN Jul 09, 2019 17:28
--- NOTE | 2019-07-23 13:40 | CARECAPL ---
Assessment Account #s: Discharge General Diagnoses: CABG Date of event: Mar 20, 2019 Physician: Erika Almanza MD Allergies: Coded Allergies: No Known Allergies (Unverified , 08/24/18) Date Entered Program: Apr 26, 2019 Risk strat for cardiac event: High Exercise Date: Jul 23, 2019 Assessment: Followup/Discharge Stages of change: action Exercise Prescription Plan educate on cardiovascular disease and increase endurance, strength and flexibility through a monitored exercise program. Modalities initiated: Treadmill (speed 2.4 incline 2.0 for 15 minutes mets 3.5 RPE 3.5), Nustep (resistance of 9 for 15 minutes mets 6.5 RPE 3), Arm Aerometer (resistance of 5 for 10 minutes mets 4.0 RPE 3.5), Dumbells (8lbs 2 set for 15 reps RPE 3), Recumbent Bike (resistance of 6 for 10 minutes Mets 3.5 RPE 4) Frequency: 2 Duration (Minutes) 30 - 60 minutes total exercise a day. 15 - 20 work intervals in minutes. PRN rest intervals in minutes. Functional Capacity Goal Sustained Metabolic Equivalent of a task (MET) goal of 5.0-6.0 for 15-20 minutes. Intensity: 3-Moderate Progression (METS) Increase by: 0.5 METS every: 3-5 sessions Angina with ex: No Target Heart Rate rest + 35-40 per beta kacey therapy. Resistance Training: Yes Weight (pounds): 8 Reps: 12-15 Hypertension: No Hypertension controlled with: Medication Resting 128/88 Peak Exercise BP 160/82 Meds metoprolol Medications Scheduled Amiodarone HCl (Amiodarone HCl), 200 MG PO DAILY, (Reported) Amiodarone HCl (Amiodarone HCl), 200 MG PO DAILY, (Reported) Ascorbic Acid (Ascorbic Acid), 500 MG PO DAILY, (Reported) Ascorbic Acid (Vitamin C), 500 MG PO DAILY, (Reported) Aspirin (Ecotrin), 81 MG PO DAILY, (Reported) Digoxin (Digoxin), 125 MCG PO DAILY, (Reported) Ferrous Gluconate (Ferrous Gluconate), 324 MG PO BID, (Reported) Folic Acid (Folic Acid), 1 MG PO DAILY, (Reported) Furosemide (Furosemide), 40 MG PO DAILY Metoprolol Tartrate (Metoprolol Tartrate), 25 MG PO BID, (Reported) Multivitamin (Multivitamins), 1 CAP PO DAILY, (Reported) Nicotine (Nicotine Patch), 1 PATCH TD DAILY Pantoprazole Sodium (Pantoprazole Sodium), 40 MG PO DAILY Potassium Chloride (Potassium Chloride), 10 MEQ PO DAILY, (Reported) Simvastatin (Simvastatin), 20 MG PO DAILY, (Reported) Warfarin Sodium (Coumadin), 3 MG PO DAILY@17 Scheduled PRN Acetaminophen (Acetaminophen), 650 MG PO Q4H PRN for FEVER, (Reported) Docusate Sodium (Stool Softener), 100 MG PO BID PRN for CONSTIPATION, (Reported) Education Goals Met: Yes (see education on prior ITP's.) Target Goals Individual exercise Rx (1) BP 140/90 or 130/80 if DM or CKD (1) Aerobic active 30+min 5 days per week (1) Nutrition Date: Jul 23, 2019 Assessment: Followup/Discharge Stages of change: action Med Change: No Diabetes Diabetes: No Monitor Blood Sugar at home: No Medication Change: No Weight Management Weight (lbs): 285 Height (inches): 68 Waist Circumference (Inches): 55 BMI: 43.33 Diet Access Tool: Rate your plate Score: 42 Intervention Rn Med Surg Consult: No Nurse/patient discussion: Yes Diet Class: Yes Referral to Diabetes education: No Referral to lipid clinic: No Referral to weight mangement p: No Education Goals Met: Yes (see education on prior ITP's.) Target goal LDL-C<100 if triglycerides are >200 Non-HDL-C should be <130 (1) LDL-C<70 for high risk patients (4) HbA1c<7% (1) BMI<25 Waist cir<40in M/<35in F (1) Education Date: Jul 23, 2019 Assessment: Followup/Discharge Knowledge Test Score: 10 Stages of change: action Family Support: Yes Tobacco use: No Education Goals Met: Yes (see education on Prior ITP's.) Target Goals Complete cessation of tobacco use (1). Psychosocial Date: Jul 23, 2019 Assessment: Followup/Discharge Psych Test (Initial/Discharge) Tool Used: Other Score: 2 Stages of change: action Med Change: No Stress Management Class: Yes Uses Stress Management Skills: Yes Education Goals Met: Yes (see education on prior ITP's.) Target Goal Assess presence or absence of depression using a valid screening tool (1). Maximize coping skills (2). Positive support system (2). Patient/Program Goal Preventative Medication: Yes Aspirin, Yes Beta blockade, Yes Statin/OTR lipid Lowering, Yes Other (warfarin) Fall Risk Assess: Yes (no fall risk) Provider Assessment Session Number: 24 Provider Assessment: Please add/change: (Discharge from program. ) Azul Juarez RN Jul 23, 2019 13:40
== END 2019-07-26 ==
LOC: M CR 11:18
PROVIDERS: ATTEND Internal Medicine Cardiovascular Disease
DX: Z95.1 Presence of aortocoronary bypass graft (principal)

== ENCOUNTER → 2019-08-29 | Outpatient (REF) | payer BC ==
[~2019-08-29] MED LIST changes: -DIGO0.12 PO; +DIGO0.123 PO; -SIMV20TA2 PO; +SIMV20TA22 PO
[2019-08-29 14:00] LABS: ALBUMIN 3.9 GM/DL (3.2-5.2); BILIRUBIN,TOTAL 0.7 MG/DL (0.2-1.0); CALCIUM LEVEL 8.6 MG/DL (8.8-10.2); CREATININE FOR GFR 1.37 MG/DL (0.70-1.30); GLOMERULAR FILTRATION RATE 56.1 (>49); POTASSIUM SERUM 4.5 MEQ/L (3.5-5.1); TOTAL PROTEIN 7.4 GM/DL (6.4-8.2)
== END ==
LOC: M LAB REF 12:02
PROVIDERS: ATTEND Family Medicine
DX: E11.9 Type 2 diabetes mellitus without complications (principal); Z12.5 Encounter for screening for malignant neoplasm of prostate
CPT/HCPCS: 80053; 80061; 83036; G0103

== ENCOUNTER → 2019-09-11 | Outpatient (REF) | payer BC ==
[2019-09-11 12:13] LABS: CHOLESTEROL RISK RATIO 3.775 (<5); CREATININE FOR GFR 1.42 MG/DL (0.70-1.30); GLOMERULAR FILTRATION RATE 53.8 (>49); POTASSIUM SERUM 4.2 MEQ/L (3.5-5.1)
== END ==
LOC: M LABDRAW1 09:32
PROVIDERS: ATTEND Internal Medicine Cardiovascular Disease
DX: I25.810 Atherosclerosis of coronary artery bypass graft(s) without angina pectoris (principal)

== ENCOUNTER → 2019-10-29 | Outpatient (REF) | payer BC ==
[2019-10-29 13:51] LABS: CALCIUM LEVEL 8.6 MG/DL (8.8-10.2); CREATININE FOR GFR 1.39 MG/DL (0.70-1.30); GLOMERULAR FILTRATION RATE 55.1 (>49); POTASSIUM SERUM 4.7 MEQ/L (3.5-5.1)
[2019-10-29 13:52] LABS: ALBUMIN 3.9 GM/DL (3.2-5.2); BILIRUBIN,TOTAL 0.5 MG/DL (0.2-1.0); CHOLESTEROL RISK RATIO 4.117 (<5); TOTAL PROTEIN 6.7 GM/DL (6.4-8.2)
[2019-10-29 14:13] LABS: HEMOGLOBIN A1c 6.7 %
== END ==
LOC: M LAB REF 12:39
PROVIDERS: ATTEND Family Medicine
DX: E11.9 Type 2 diabetes mellitus without complications (principal)

== ENCOUNTER → 2020-03-17 | Outpatient (CLI) | payer BC ==
[2020-03-17 13:05] LABS: ALBUMIN 3.6 GM/DL (3.2-5.2); BILIRUBIN,TOTAL 0.5 MG/DL (0.2-1.0); CALCIUM LEVEL 8.8 MG/DL (8.8-10.2); CHOLESTEROL RISK RATIO 3.903 (<5); CREATININE FOR GFR 1.34 MG/DL (0.70-1.30); GLOMERULAR FILTRATION RATE 57.3 (>49); POTASSIUM SERUM 4.5 MEQ/L (3.5-5.1); TOTAL PROTEIN 6.9 GM/DL (6.4-8.2)
== END ==
LOC: M PLALAB 09:38
PROVIDERS: ATTEND Nurse Practitioner Family
DX: E78.2 Mixed hyperlipidemia (principal); I48.0 Paroxysmal atrial fibrillation

== ENCOUNTER 2020-06-22 17:06 | Inpatient (IN) | payer BC ==
[~2020-06-22] VITALS: Ht 175.3 cm; Wt 120.8 kg
[~2020-06-22 17:06] MED LIST changes: -AMIO200T PO; +AMIO200T3 PO; -LISI20TA19 PO; +LISI20TA35 PO; +PANT40TA29 PO; -PANT40TA3 PO
[2020-06-22] MEDS ORDERED: EZET10TA21 PO (17:17)
[2020-06-22] MEDS ORDERED: LISI-542 PO (17:17)
[2020-06-22] MEDS ORDERED: ATOR80TA59 PO (17:17)
[2020-06-22] MEDS ORDERED: NS 1,000 ML IV SCH (17:27)
[2020-06-22 17:37] LABS: BASO # 0.1 10^3/uL (0.0-0.2); BASO % 0.5 % (0.0-1.0); EOS # 0.1 10^3/uL (0.0-0.5); HEMATOCRIT 50.2 % (42.0-52.0); HEMOGLOBIN 16.1 g/dl (13.5-17.5); LYMPH # 2.1 10^3/uL (1.5-5.0); LYMPH % 18.8 % (24.0-44.0); MEAN CORPUSCULAR HEMOGLOBIN 29.1 pg (27.0-33.0); MEAN CORPUSCULAR HGB CONC 32.1 g/dl (32.0-36.5); MEAN CORPUSCULAR VOLUME 90.6 fl (80.0-96.0); MONO # 0.6 10^3/uL (0.0-0.8); MONO % 5.5 % (0.0-5.0); NEUTROPHILS # 8.4 10^3/uL (1.5-8.5); NEUTROPHILS % 73.8 % (36.0-66.0); PLATELET COUNT, AUTOMATED 286 10^3/uL (150-450); RED BLOOD COUNT 5.54 10^6/uL (4.30-6.10); WHITE BLOOD COUNT 11.3 10^3/uL (4.0-10.0)
--- NOTE | 2020-06-22 18:09 | REPVR ---
PROCEDURE INFORMATION: Exam: CT Head Without Contrast Exam date and time: 06/22/2020 5:32 PM Age: 65 years old Clinical indication: Altered mental status/memory loss TECHNIQUE: Imaging protocol: Computed tomography of the head without contrast. Radiation optimization: All CT scans at this facility use at least one of these dose optimization techniques: automated exposure control; mA and/or kV adjustment per patient size (includes targeted exams where dose is matched to clinical indication); or iterative reconstruction. COMPARISON: No relevant prior studies available. FINDINGS: Brain: There are multiple areas of abnormal lucency within the cerebral hemispheres. The appearance is consistent with vasogenic edema. Series 201, image 8 demonstrates an 8 mm left frontal mass with surrounding edema. Image 10 demonstrates a 12 mm right frontal mass with surrounding vasogenic edema. Image 18 demonstrates a 15 mm left frontal mass with surrounding edema. Image 21 demonstrates an 8 mm left frontal mass with surrounding edema. Smaller areas of edema noted in the right occipital lobe. There also areas of edema within this cerebellar hemispheres. On the left there is a hypodense mass measuring 18 mm. There is less extensive edema in the right cerebellar hemisphere Cerebral ventricles: No ventriculomegaly. Bones/joints: There is a large lytic lesion lesion involving the body of the sphenoid and the clivus. This measures up to 5 cm.. Paranasal sinuses: The left frontal sinus is completely opacified. Mastoid air cells: Visualized mastoid air cells are well aerated. Soft tissues: Unremarkable. IMPRESSION: 1. Multiple cerebral and cerebellar masses with vasogenic edema highly suspicious for metastatic disease. 2. Very large, 5 cm, lytic lesion of the sphenoid suspicious for osseous metastatic disease. Electronically signed by: Derrick Varghese On 06/22/2020 18:08:46 PM
[2020-06-22 18:11] LABS: ACETAMINOPHEN LEVEL < 2.0 UG/ML (10.0-30.0); ALBUMIN 4.1 GM/DL (3.2-5.2); ALT/SGPT 14 U/L (12-78); BILIRUBIN,DIRECT 0.3 MG/DL (0.0-0.2); BILIRUBIN,TOTAL 0.8 MG/DL (0.2-1.0); BLOOD UREA NITROGEN 28 MG/DL (7-18); CARBON DIOXIDE LEVEL 27 MEQ/L (21-32); CHLORIDE LEVEL 106 MEQ/L (98-107); CK-MB VALUE MASS 1.8 NG/ML (<3.6); CPK CREATINE PHOSPHOKINASE 47 U/L (39-308); ETHYL ALCOHOL (ETHANOL) < 0.003 % (0.000-0.010); GLOMERULAR FILTRATION RATE 59.4 (>49); GLUCOSE, FASTING 142 MG/DL (70-100); MB/CK RELATIVE INDEX 3.83 (< OR =4); POTASSIUM SERUM 4.1 MEQ/L (3.5-5.1); SALICYLATE LEVEL < 1.7 MG/DL (5.0-30.0); SODIUM LEVEL 141 MEQ/L (136-145); TOTAL PROTEIN 7.9 GM/DL (6.4-8.2); TROPONIN I < 0.02 NG/ML (< 0.10)
--- NOTE | 2020-06-22 18:13 | REPVR ---
PROCEDURE INFORMATION: Exam: XR Chest, 1 View Exam date and time: 06/22/2020 5:44 PM Age: 65 years old Clinical indication: Other: AMS; Additional info: Altered mental status TECHNIQUE: Imaging protocol: XR of the chest Views: 1 view. COMPARISON: No relevant prior studies available. FINDINGS: Lungs: The there is an abnormal area of somewhat rounded density in the right upper lobe. There is a more linear area of probable atelectasis in the left mid lung. Pleural space: Unremarkable. No pleural effusion. No pneumothorax. Heart/Mediastinum: Unremarkable. No cardiomegaly. Bones/joints: Status post median sternotomy. No fracture or osseous lesion. IMPRESSION: Rounded density in the right upper lobe . Given the findings on head CT, this is suspicious for neoplasm. Findings were discussed with NATALIA PEREZ at 06/22/2020 6:13 PM EDT. Electronically signed by: Derrick Varghese On 06/22/2020 18:13:20 PM
[2020-06-22] MEDS ORDERED: dexameTHASONE 20MG/5ML VIAL (J1100 PER 1MG) IV ONE (18:30)
[2020-06-22] MEDS ORDERED: METO1TAB32 PO (19:16)
[2020-06-22] MEDS ORDERED: PANT-23 PO (19:17)
--- NOTE | 2020-06-22 20:56 | HPEPDOC ---
General Date of Admission 06/22/20 Date of Service: Jun 22, 2020 Chief Complaint The patient is a 65-year-old male admitted with a reason for visit of General Medical. Source: Patient Exam Limitations: No limitations Timing/Duration: Day(s) Severity: Moderate History of Present Illness Patient is 64 years old male with past medical history of morbid obesity, unstable angina, systolic HCf with EF 30-35% tobacco abuse, HTN, HTN, CABG x4 vessels on 03/20/19 presented to the hospital with history of slurries of speech, headache, lightheadedness. Patient stated that he has been having these symptoms for past few weeks. In ER patient was found to have rounded density in the right upper lobe, CT head showed. Multiple cerebral and cerebellar masses with vasogenic edema highly suspicious for metastatic disease. Very large, 5 cm, lytic lesion of the sphenoid suspicious for osseous metastatic disease. Patient received 10 mg of Decadron. Home Medications Scheduled Aspirin (Ecotrin) 81 Mg Tablet.dr, 81 MG PO DAILY, (Reported) Atorvastatin Calcium (Atorvastatin Calcium) 80 Mg Tablet, 80 MG PO QHS, (Reported) Ezetimibe (Ezetimibe) 10 Mg Tablet, 10 MG PO QHS, (Reported) Lisinopril (Lisinopril) 5 Mg Tablet, 5 MG PO QHS, (Reported) Metoprolol Succinate (Metoprolol Succinate) 25 Mg Tab.er.24h, 12.5 MG PO BID, (Reported) Multivitamin (Multivitamins) 1 Cap Cap, 1 CAP PO DAILY, (Reported) Pantoprazole Sodium (Pantoprazole Sodium) 40 Mg Tablet.dr, 40 MG PO DAILY, (Reported) Scheduled PRN Acetaminophen (Acetaminophen) 325 Mg Tablet, 650 MG PO Q4H PRN for FEVER, (Reported) Allergies Coded Allergies: No Known Allergies (Unverified , 08/24/18) Past Medical History Medical History morbid obesity, unstable angina, systolic HCf with EF 30-35% tobacco abuse, HTN, HTN, admitted to [facility] on 03/19[facility]19 for an urgent cardiac catheterization w ith Impella placement in the setting of an NSTEMI. He underwent CABG x4 vessels on 03/20/19, atrial fibrillation not on anticoagulation Surgical History ardiac catheterization with Impella placement in the setting of an NSTEMI. He underwent CABG x4 vessels on 03/20/19 Family History I personally reviewed family history and found not pertinent Social History * Smoker: former Smoker, quit less than 1 year Alcohol: occationally Drugs: denies A-FIB/CHADSVASC A-FIB History Current/History of A-Fib/PAF?: Yes Current PO Anticoag Therapy: No Review of Systems Constitutional: Denies: Chills, Fever, Malaise Eyes: Denies: Pain ENT: Reports: Head Aches Skin: Denies: Rash, Lesions Pulmonary: Denies: Dyspnea, Cough Cardiovascular: Denies: Chest Pain, Palpitations Gastrointestinal: Denies: Nausea, Vomiting Genitourinary: Denies: Dysuria Hematologic: Denies: Bruising Endocrine: Denies: Polydipsia Musculoskeletal: Denies: Neck Pain, Back Pain Neurological: Reports: Other Symptoms (right mouth droop) Psych: Reports: Mood Normal Physical Examination General Exam: Positive: Alert, Cooperative, No Acute Distress Eye Exam: Positive: PERRLA ENT Exam: Positive: Atraumatic Neck Exam: Positive: Supple; Negative: JVD Chest Exam: Positive: Clear to auscultation Heart Exam: Positive: Rate Normal Telemetry: Positive: Sinus Abdomen Exam: Positive: Normal bowel sounds Extremity Exam: Negative: Clubbing, Cyanosis Skin Exam: Positive: Nl turgor and temperature Neuro Exam: Positive: Normal Gait, Strength at 5/5 X4 ext, Reflexes 2+; Negative: Normal Speech (slurry speech), Cranial Nerves 3-12 NL (right mouth droop) Psych Exam: Positive: Mental status NL, Oriented x 3 Vital Signs Vital Signs Date Time Temp Pulse Resp B/P (MAP) Pulse Ox O2 Delivery O2 Flow Rate FiO2 06/22/20 19:15 75 135/67 (89) 98 06/22/20 17:06 95.5 24 Room Air Laboratory Data Labs 24H Laboratory Tests 2 06/22/20 17:29: Immature Granulocyte % (Auto) 0.4, Neutrophils (%) (Auto) 73.8H, Lymphocytes (%) (Auto) 18.8L, Monocytes (%) (Auto) 5.5H, Eosinophils (%) (Auto) 1.0, Basophils (%) (Auto) 0.5, Neutrophils # (Auto) 8.4, Lymphocytes # (Auto) 2.1, Monocytes # (Auto) 0.6, Eosinophils # (Auto) 0.1, Basophils # (Auto) 0.1, Nucleated Red Blood Cells % (auto) 0.0, Anion Gap 8, Glomerular Filtration Rate 59.4, Calcium Level 10.0, Total Bilirubin 0.8, Direct Bilirubin 0.3H, Aspartate Amino Transf (AST/SGOT) 16, Alanine Aminotransferase (ALT/SGPT) 14, Alkaline Phosphatase 242H, Total Creatine Kinase 47, Creatine Kinase MB 1.8, Creatine Kinase MB Rela tive Index 3.83, Troponin I < 0.02, Total Protein 7.9, Albumin 4.1, Albumin/Globulin Ratio 1.1, Thyroid Stimulating Hormone (TSH) 1.100, Salicylates Level < 1.7L, Acetaminophen Level < 2.0L, Ethyl Alcohol Level < 0.003 CBC/BMP Laboratory Tests 06/22/20 17:29 Assessment/Plan Patient is 64 years old male with past medical history of morbid obesity, unstable angina, systolic HCf with EF 30-35% tobacco abuse, HTN, HTN, CABG x4 vessels on 03/20/19 presented to the hospital with history of slurries of speech, headache, lightheadedness. Patient stated that he has been having these symptoms for past few weeks. In ER patient was found to have rounded density in the right upper lobe, CT head showed. Multiple cerebral and cerebellar masses with vasogenic edema highly suspicious for metastatic disease. Very large, 5 cm, lytic lesion of the sphenoid suspicious for osseous metastatic disease. Patient received 10 mg of Decadron. Problems (1) Lung mass Status: Acute Problem Text: Incidental finding Will do CT chest Dr Mares was contacted by phone by emergency physician. 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 Status: Acute Problem Text: Most likely secondary to lung malignancy Dexamethasone 4 mg every 6 hours Consider radiation oncologist consult in the morning (3) Speech abnormality Status: Acute Problem Text: Secondary to brain metastases Appreciate/agree with speech eval (4) Atrial fibrillation Status: Chronic Problem Text: Patient was not on the anticoagulation therapy Oral targeted Anticoagulation therapy on hold for now due to lung biopsy most likely tomorrow Consider telephone sales representative consult for possible bronchoscopy and biopsy Plan / VTE VTE Prophylaxis Ordered?: Yes LUZ MARIA CHATMAN DO Jun 22, 2020 20:56
[2020-06-22] MEDS ORDERED: ISOVUE-370 76% 100ML VIAL As Ordered ONE (20:58)
--- NOTE | 2020-06-22 21:13 | ECGEPIP ---
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
--- NOTE | 2020-06-22 21:48 | REPVR ---
PROCEDURE INFORMATION: Exam: CT Chest With Contrast Exam date and time: 06/22/2020 9:12 PM Age: 65 years old Clinical indication: Abnormal findings; Abnormal radiologic exam of lung or chest; Additional info: Lung mass TECHNIQUE: Imaging protocol: Computed tomography of the chest with intravenous contrast. 3D rendering (Not supervised by radiologist): MIP and/or 3D reconstructed images were created by the technologist. Radiation optimization: All CT scans at this facility use at least one of these dose optimization techniques: automated exposure control; mA and/or kV adjustment per patient size (includes targeted exams where dose is matched to clinical indication); or iterative reconstruction. Contrast material: ISOVUE 370; Contrast volume: 75 ml; Contrast route: INTRAVENOUS (IV); COMPARISON: CR Chest, 2 view PA, Lat 06/22/2020 5:33 PM FINDINGS: Lungs: There is a lobulated mass is in the right upper lobe. This extends from the perihilar region to the periphery. It measures 6 cm. In length. On axial images short axis is 2.8 cm. On coronal reconstructions craniocaudad dimension is 3 cm. This is the area of suspicion on the prior chest x-ray. Inferior to this there is a 5 mm satellite nodule. There is an additional 7 mm right upper lobe nodule. There is linear subsegmental atelectasis in the left upper lobe. Pleural space: Unremarkable. No pneumothorax. No pleural effusion. Heart: Unremarkable. No cardiomegaly. No pericardial effusion. Aorta: Unremarkable. No aortic aneurysm. Lymph nodes: There are markedly enlarged lymph nodes in the mediastinum and hilum. There is a right paratracheal lymph node measuring 4.5 cm in short axis. Anterior to this there is a lymph node measuring 2.6 cm in short axis. There are additional prevascular lymph nodes measuring up to 16 mm in short axis. There is a right hilar lymph node measuring 2.6 cm in short axis. There is a There are additional smaller mediastinal lymph nodes. Bones/joints: Unremarkable. No acute fracture. Soft tissues: Unremarkable. IMPRESSION: 1. Large, 6 cm, right upper lobe mass highly consistent with lung carcinoma. There are 2 additional small right upper lobe nodules, probably metastatic. Tissue diagnosis recommended as per Fleischner protocol. 2. There are markedly enlarged mediastinal and right hilar lymph nodes highly consistent with metastatic adenopathy Electronically signed by: Derrick Varghese On 06/22/2020 21:48:03 PM
[2020-06-22] MEDS ORDERED: dexameTHASONE 4 MG/ML 1ML VIAL (J1100 PER 1MG) IV SCH (22:00)
[2020-06-22 22:40] VITALS: BP 139/76
[2020-06-23] MEDS: EZETIMIBE 10 MG TAB (ZETIA) PO SCH ×2 (00:03→21:31)
[2020-06-23] MEDS: ATORVASTATIN 20 MG TAB PO SCH ×2 (00:03→21:31)
[2020-06-23] MEDS: lisinopriL 5 MG TAB PO SCH ×2 (00:04→21:00)
[2020-06-23] MEDS: METOPROLOL SUCC *XL* 12.5MG PER 1/2 TAB (TopROL *XL*) PO SCH ×3 (00:04→21:00)
[2020-06-23] MEDS: HEPARIN SOD (PORCINE) 5000UNITS/ML 1ML VIAL/SYRINGE SC SCH ×3 (00:05→21:31)
[2020-06-23] MEDS: ACETAMINOPHEN TAB 650MG DOSE (2X325MG) PO PRN ×2 (00:05→06:32)
[2020-06-23] MEDS: dexameTHASONE 4 MG/ML 1ML VIAL (J1100 PER 1MG) IV SCH ×4 (00:05→18:43)
[2020-06-23 04:15] VITALS: BP 110/69
[2020-06-23 06:00] VITALS: BP 107/86
[2020-06-23 06:08] LABS: HEMATOCRIT 46.8 % (42.0-52.0); HEMOGLOBIN 15.1 g/dl (13.5-17.5); MEAN CORPUSCULAR HEMOGLOBIN 29.5 pg (27.0-33.0); MEAN CORPUSCULAR HGB CONC 32.3 g/dl (32.0-36.5); MEAN CORPUSCULAR VOLUME 91.4 fl (80.0-96.0); PLATELET COUNT, AUTOMATED 275 10^3/uL (150-450); RED BLOOD COUNT 5.12 10^6/uL (4.30-6.10); WHITE BLOOD COUNT 8.9 10^3/uL (4.0-10.0)
[2020-06-23 06:38] LABS: ALBUMIN 3.5 GM/DL (3.2-5.2); ALT/SGPT 14 U/L (12-78); BILIRUBIN,TOTAL 0.4 MG/DL (0.2-1.0); BLOOD UREA NITROGEN 27 MG/DL (7-18); CALCIUM LEVEL 9.9 MG/DL (8.8-10.2); CARBON DIOXIDE LEVEL 23 MEQ/L (21-32); CHLORIDE LEVEL 106 MEQ/L (98-107); CREATININE FOR GFR 1.14 MG/DL (0.70-1.30); GLOMERULAR FILTRATION RATE > 60.0 (>49); GLUCOSE, FASTING 160 MG/DL (70-100); MAGNESIUM LEVEL 2.3 MG/DL (1.8-2.4); POTASSIUM SERUM 4.6 MEQ/L (3.5-5.1); SODIUM LEVEL 137 MEQ/L (136-145); TOTAL PROTEIN 7.2 GM/DL (6.4-8.2)
[2020-06-23] MEDS ORDERED: FLUBLOK(EGG FREE)(QUAD)INFLUENZA VACC 0.5ML SYRINGE 18YRS & OLDER IM ONE (09:00)
[2020-06-23] MEDS: ASPIRIN 81 MG ENTERIC TAB PO SCH (13:16)
[2020-06-23] MEDS: PANTOPRAZOLE 40MG TAB (PROTONIX) PO SCH (13:16)
[2020-06-23 15:30] VITALS: BP 146/113
[2020-06-23] MEDS: KETOROLAC 30 MG/ML 1ML VIAL IV PRN (16:34)
--- NOTE | 2020-06-23 20:07 | IPNPDOC ---
Date Seen The patient was seen on 06/23/20. Progress Note SUBJECTIVE: Caleb was seen and examined by the hospitalist service this morning while lying in bed. He is complaining of a persistent headache, but otherwise had no significant issues overnight after being admitted. He denies any current, or overnight fever, chills, night sweats, chest pain, pal pitations, shortness of breath, abdominal pain, nausea, or vomiting. OBJECTIVE PHYSICAL EXAMINATION: VITAL SIGNS: Please see below. GENERAL: Pleasant obese male lying in bed. No acute distress. Alert and oriented 3. HEENT: Normocephalic, atraumatic. Wearing eyeglasses. Noninjected, anicteric sclera. PERRLA. Upper and lower dentures in place. No significant lymphadenopathy appreciated. CARDIOVASCULAR: Heart sounds were somewhat distant. Heart rate was controlled and regular, with regular rhythm. Normal S1, S2. 2/6 systolic murmur appreciated best at right second intercostal space. RESPIRATORY: Decreased tidal volume with no appreciated adventitious breath sounds. No dullness to percussion. Symmetric chest expansion. Breathing room air. ABDOMINAL: Soft, obese. Nondistended and nontender. No guarding or rigidity appreciated. EXTREMITIES: Lower extremities are free of edema bilaterally. There is no clubbing or cyanosis NEUROLOGICAL: Awake, alert and oriented 3. PSYCHOLOGICAL: Mood and affect appear appropriate LABORATORY DATA, IMAGING STUDIES, MICROBIOLOGY: Please see below. ASSESSMENT AND PLAN: This is a 65yo male w/ h/o HFrEF (last EF b/w 30-35%) with previous Impella since removed, coronary artery disease with an STEMI in February 2019, status post CABG 4, unstable angina, hypertension, morbid obesity, former smoker who presented to the ED in 06/22 with chief complaint of headache and lightheadedness with intermittent episodes of slurred speech that has progressed over the past week. Imaging showed right upper lung mass with other right lung nodules and extensive mediastinal lymphadenopathy with multiple cerebral and cerebellar masses as well as lytic sphenoid lesion. Patient was admitted to PCU with presumed diagnosis of primary lung cancer with metastasis to the brain. #Evidence of metastatic disease on imaging -CT chest and CT head imaging studies on 06/22 showed right upper lung lobe mass with 2 other right lung nodules, significant mediastinal lymphadenopathy, cerebral and cerebellar masses with vasogenic edema, and sphenoid lytic lesion. -We had an extensive discussion with the patient and his daughter (she is a physical therapist here at [facility]) regarding the burden of his neoplastic disease and the potential routes that can be taken. Both the patient and his daughter understood potential options moving forward and would like to get more input from medical oncology as to the extent of the workup. We have spoken with medical oncology and a consultation has been placed. Very much appreciate the insight and recommendations from the oncology service. -In terms of patient's presumed brain metastasis, patient was started on admission with IV Decadron which will be continued. As far as the associated headaches, patient has been given IV ketorolac prn after prn acetaminophen was not sufficient -Patient is currently in the process of deciding whether or not he will wish to pursue treatment, which would invariably mean biopsy in order to stage and identify the type of his disease. Should patient decide to take this route, we will likely also consult the radiation oncology service as relates to the brain metastases. -Patient was a full code upon admission. After our extensive conversation with both patient and his daughter, they then subsequently had further family talks and per nursing, were leaning toward switching to DNR/DNI, but later in the day shift. He was reticent to change his CODE STATUS until after full conversations with oncology service -Upon admission, PT, OT, and speech therapy evaluations were all ordered #Heart failure with reduced ejection fraction -History of EF 30, 35% with previous and pillow device -Home Toprol medication continued -Appear to be compensated on physical exam today (06/23) -2 g sodium diet #Coronary artery disease status post CABG with an STEMI in 2019 -Home zetia and atorvastatin continued, as well as 81 mg qd asa #Hypertension -Pressures been relatively well controlled since admission -Home lisinopril continued -2 g sodium diet #DVT prophylaxis: SC Heparin DISPOSITION: Pending patient's ultimate decision whether or not, and to what extent, he wishes to pursue workup of his metastatic neoplastic disease VS, I&O, 24H, Fishbone Vital Signs/I&O Vital Signs Date Time Temp Pulse Resp B/P (MAP) Pulse Ox O2 Delivery O2 Flow Rate FiO2 06/23/20 15:30 98.6 82 18 146/113 (124) 98 Room Air I&O- Last 24 Hours up to 6 AM 06/23/20 06:00 Intake Total 1450 ml Output Total 150 ml Balance 1300 ml Laboratory Data 24H LABS Laboratory Tests 2 06/23/20 05:31: Nucleated Red Blood Cells % (auto) 0.0, Anion Gap 8, Glomerular Filtration Rate > 60.0, Calcium Level 9.9, Magnesium Level 2.3, Total Bilirubin 0.4, Aspartate Amino Transf (AST/SGOT) 16, Alanine Aminotransferase (ALT/SGPT) 14, Alkaline Phosphatase 224H, Total Protein 7.2, Albumin 3.5, Albumin/Globulin Ratio 0.9 CBC/BMP Laboratory Tests 06/23/20 05:31 GME ATTESTATION GME ATTESTATION My faculty preceptor for this patient encounter was physically present during the encounter and was fully available. All aspects of the patient interview, examination, medical decision making process, and medical care plan development were reviewed and approved by the faculty preceptor. The faculty preceptor is aware and concurs with the plan as stated in the body of this note and will attest to such by his/her cosignature. ATTENDING NOTE Patient was seen and examined by me personally with the residents and students. Agree with the above assessment and plan RANDALL AVALOS D.O. Jun 23, 2020 20:07 EMILY RAWLS MD Jul 02, 2020 09:29
[2020-06-23 22:00] VITALS: BP 118/65
[2020-06-24] MEDS: dexameTHASONE 4 MG/ML 1ML VIAL (J1100 PER 1MG) IV SCH ×5 (00:51→23:45)
[2020-06-24 06:00] VITALS: BP 129/76
[2020-06-24] MEDS: METOPROLOL SUCC *XL* 12.5MG PER 1/2 TAB (TopROL *XL*) PO SCH ×2 (09:00→21:00)
[2020-06-24] MEDS: ASPIRIN 81 MG ENTERIC TAB PO SCH (10:21)
[2020-06-24] MEDS: PANTOPRAZOLE 40MG TAB (PROTONIX) PO SCH (10:21)
[2020-06-24] MEDS: HEPARIN SOD (PORCINE) 5000UNITS/ML 1ML VIAL/SYRINGE SC SCH ×2 (10:21→21:53)
[2020-06-24] MEDS: KETOROLAC 30 MG/ML 1ML VIAL IV PRN ×2 (11:02→21:54)
[2020-06-24 14:00] VITALS: BP 116/64
[2020-06-24] MEDS ORDERED: PROHANCE 279.3MG/ML 15ML VIAL As Ordered ONE (18:10)
[2020-06-24] MEDS ORDERED: PROHANCE 279.3MG/ML 5ML VIAL As Ordered ONE (18:10)
--- NOTE | 2020-06-24 18:57 | REPVR ---
PROCEDURE INFORMATION: Exam: MR Head Without and With Contrast Exam date and time: 06/24/2020 6:40 PM Age: 65 years old Clinical indication: Abnormal findings; Abnormal radiologic findings of head/skull; Not specified; Patient HX: F/u to CT on pacs; Additional info: Brain masses w/ edema TECHNIQUE: Imaging protocol: MR of the head without and with intravenous contrast. Contrast material: PROHANCE; Contrast volume: 20 ml; Contrast route: INTRAVENOUS (IV); COMPARISON: CT Head without contrast 06/22/2020 5:28 PM FINDINGS: Major vascular flow voids at the skull base are preserved. No extra-axial fluid collection. Stable ventricular size. There are numerous enhancing supratentorial and infratentorial masses bilaterally. Largest at the left cerebellum measures up to 2.5 cm. Largest at the right frontal lobe measures up to 1.7 cm. Largest at the left frontal lobe measures up to 1.8 cm. There is peripheral pattern of enhancement. Adjacent vasogenic edema. There is partial effacement of the 4th ventricle. No midline shift. No evidence of transependymal resorption of CSF. Foci of T2 shine through without true diffusion restriction to indicate acute ischemic infarct. Stable paranasal sinus disease. No significant mastoid effusion. Stable destructive mass at the central skull base. IMPRESSION: 1. Findings compatible with intracranial metastatic disease. 2. Stable partial effacement of the 4th ventricle with stable ventricular size. No evidence of transependymal resorption of CSF. 3. Stable destructive mass at the central skull base, probable metastatic deposit. Electronically signed by: Richy Martinez On 06/24/2020 18:56:23 PM
--- NOTE | 2020-06-24 19:36 | IPNPDOC ---
Date Seen The patient was seen on 06/24/20. Progress Note SUBJECTIVE: aCleb was seen and examined this morning by the hospitalist service while lying in bed. He reports an improvement in his headache from yesterday after the IV decadron and prn ketorolac were initiated. He denies any episodes of slurred speech overnight or lightheadedness. He is eating and drinking without any issues at this time with a good appetite and denies any pain. He denies any current or overnight fever, chills, night sweats, chest pain, palpitations, sob, cough, pleuritic chest pain, nausea, vomiting or diarrhea. OBJECTIVE PHYSICAL EXAMINATION: VITAL SIGNS: Please see below. GENERAL: Pleasant obese male lying in bed. No acute distress. Alert and oriented 3. HEENT: Normocephalic, atraumatic. Wearing eyeglasses. Noninjected, anicteric sclera. PERRLA. Upper and lower dentures in place. No significant lymphadenopathy appreciated. CARDIOVASCULAR: Heart sounds were somewhat distant. Heart rate was controlled and regular with regular rhythm. Normal S1, S2. RESPIRATORY: Decreased tidal volume with no appreciated adventitious breath sounds. No dullness to percussion. Symmetric chest expansion. Breathing room air. ABDOMINAL: Soft, obese. Nondistended and nontender. No guarding or rigidity appreciated. EXTREMITIES: Lower extremities are free of edema bilaterally. There is no clubbing or cyanosis NEUROLOGICAL: Awake, alert and oriented 3. PSYCHOLOGICAL: Mood and affect appear appropriate LABORATORY DATA, IMAGING STUDIES, MICROBIOLOGY: *Brain MRI with and without contrast will be performed this afternoon (06/24) Chest Xray, 06/22/20- Rounded density in the right upper lobe . Given the findings on head CT, this is suspicious for neoplasm. Chest CT, 06/22/20- Large, 6 cm, right upper lobe mass highly consistent with lung carcinoma. There are 2 additional small right upper lobe nodules, probably metastatic.Tissue diagnosis recommended as per Fleischner protocol. There are markedly enlarged mediastinal and right hilar lymph nodes highly consistent with metastatic adenopathy. Head CT, 06/22/20- Multiple cerebral and cerebellar masses with vasogenic edema highly suspicious for metastatic disease. Very large, 5 cm, lytic lesion of the sphenoid suspicious for osseous metastatic disease. -Please see below for more information- ASSESSMENT & PLAN: This is a 65yo male w/ h/o HFrEF (last EF b/w 30-35%) with previous Impella since removed, coronary artery disease with a NSTEMI in February 2019, status post CABG 4, unstable angina, hypertension, morbid obesity, former smoker who presented to the ED on 06/22 with chief complaint of headache and lightheadedness with intermittent episodes of slurred speech that had progressed over the past week. Imaging showed right upper lung mass with other right lung nodules and extensive mediastinal lymphadenopathy with multiple cerebral and cerebellar masses as well as lytic sphenoid lesion. Patient was admitted to PCU with presumed diagnosis of primary lung cancer with metastasis to the brain. #Evidence of metastatic disease on imaging (lung and brain masses with mediastinal lymphadenopathy) -CT chest and CT head imaging studies on 06/22 showed right upper lung lobe mass with 2 other right lung nodules, significant mediastinal lymphadenopathy, cerebral and cerebellar masses with vasogenic edema, and sphenoid lytic lesion. -Had lengthy conversations again today with both the patient and his daughter (Ofelia, a PT here at [facility]). Patient has formally agreed to change his code status to a DNR/DNI from full code and has signed a MOLST form representing this. -In terms of patient's presumed brain metastasis, patient was started on admission with IV Decadron yesterday as it has the highest anti-inflammatory effects of steroids and will stabilize endothelium in the setting of vasogenic brain edema. Since initiating these medications, pt's headaches have improved. -Patient decided to investigate treatment options for likely metastatic disease. Both the medical oncology and radiation oncology services have been consulted - - we sincerely appreciate the insight and recommendations of both services. -Upon admission, PT, OT, and speech therapy evaluations were all ordered -BMP ordered for tomorrow to assess for any possible metabolic electrolyte abnormal changes in the setting of brain masses and vasogenic edema #Heart failure with reduced ejection fraction -History of EF 30, 35% with previous and pillow device -Home Toprol medication continued -Continues to appear compensated on physical exam the past two days (06/23-) -2 g sodium diet #Coronary artery disease status post CABG with an STEMI in 2019 -Home atorvastatin and zetia were discontinued today as these medications portend a 5-year mortality benefit, yet in the context of his current neoplastic process, their administration is not warranted -C/w home 81 mg qd asa #Hypertension -Pressures well controlled since admission -Home lisinopril continued -2 g sodium diet #DVT prophylaxis: SC Heparin DISPOSITION: Pending consultations with both medical and radiation oncology and likely biopsy results VS, I&O, 24H, Fishbone Vital Signs/I&O Vital Signs Date Time Temp Pulse Resp B/P (MAP) Pulse Ox O2 Delivery O2 Flow Rate FiO2 06/24/20 14:00 97.9 75 16 116/64 (81) 96 Room Air I&O- Last 24 Hours up to 6 AM 06/24/20 06:00 Intake Total 740 ml Output Total 400 ml Balance 340 ml GME ATTESTATION GME ATTESTATION My faculty preceptor for this patient encounter was physically present during the encounter and was fully available. All aspects of the patient interview, examination, medical decision making process, and medical care plan development were reviewed and approved by the faculty preceptor. The faculty preceptor is aware and concurs with the plan as stated in the body of this note and will attest to such by his/her cosignature. ATTENDING NOTE Patient was seen and examined by me personally with the residents and students. Agree with the above assessment and plan RANDALL AVALOS D.O. Jun 24, 2020 19:36 EMILY RAWLS MD Jul 02, 2020 09:31
[2020-06-24] MEDS: lisinopriL 5 MG TAB PO SCH (21:52)
[2020-06-24] MEDS: EZETIMIBE 10 MG TAB (ZETIA) PO SCH (21:52)
[2020-06-24 22:00] VITALS: BP 122/62
[2020-06-25] MEDS: dexameTHASONE 4 MG/ML 1ML VIAL (J1100 PER 1MG) IV SCH ×3 (05:23→18:17)
[2020-06-25 06:00] VITALS: BP 116/54
[2020-06-25 07:01] LABS: BLOOD UREA NITROGEN 40 MG/DL (7-18); CALCIUM LEVEL 8.9 MG/DL (8.8-10.2); CARBON DIOXIDE LEVEL 24 MEQ/L (21-32); CHLORIDE LEVEL 109 MEQ/L (98-107); CREATININE FOR GFR 1.25 MG/DL (0.70-1.30); GLOMERULAR FILTRATION RATE > 60.0 (>49); GLUCOSE, FASTING 130 MG/DL (70-100); POTASSIUM SERUM 4.6 MEQ/L (3.5-5.1); SODIUM LEVEL 141 MEQ/L (136-145)
[2020-06-25] MEDS: METOPROLOL SUCC *XL* 12.5MG PER 1/2 TAB (TopROL *XL*) PO SCH ×2 (09:00→22:19)
[2020-06-25] MEDS: PANTOPRAZOLE 40MG TAB (PROTONIX) PO SCH (10:09)
[2020-06-25] MEDS: ASPIRIN 81 MG ENTERIC TAB PO SCH (10:09)
[2020-06-25] MEDS: HEPARIN SOD (PORCINE) 5000UNITS/ML 1ML VIAL/SYRINGE SC SCH ×2 (10:10→22:18)
--- NOTE | 2020-06-25 11:06 | RADONC.CN ---
Radiation Oncology Hx/Consult Radiation Oncology Consult Date of Service: Jun 25, 2020 Pt Identifier Caleb Farley is a 65 year old male former smoker with a history of DMII and CAD s/p CABG, who presented to [facility] with subacute imbalance, headache, dysarthria and difficulty ambulating for the past [address] head which revealed multiple parenchymal lesions with surrounding vasogenic edema concerning for metastases. Subsequent body imaging revealed a right lung mass and mediastinal adenopathy concerning for primary lung cancer. A tissue diagnosis is being pursued. He has been started on decadron with near complete resolution of neurologic symptoms. He had an MRI on 06/24/20 which revealed ~16 metastatic lesions of varying sized with a particular concentration in the posterior fossa which explain his ataxia. I am seeing him today at the request of the primary team for consideration of cranial RT. Diagnosis/Treatment History Oncologic History As above Relevant data: 06/24/20 MRI head FINDINGS: Major vascular flow voids at the skull base are preserved. No extra-axial fluid collection. Stable ventricular size. There are numerous enhancing supratentorial and infratentorial masses bilaterally. Largest at the left cerebellum measures up to 2.5 cm. Largest at the right frontal lobe measures up to 1.7 cm. Largest at the left frontal lobe measures up to 1.8 cm. There is peripheral pattern of enhancement. Adjacent vasogenic edema. There is partial effacement of the 4th ventricle. No midline shift. No evidence of transependymal resorption of CSF. Foci of T2 shine through without true diffusion restriction to indicate acute ischemic infarct. Stable paranasal sinus disease. No significant mastoid effusion. Stable destructive mass at the central skull base. IMPRESSION: 1. Findings compatible with intracranial metastatic disease. 2. Stable partial effacement of the 4th ventricle with stable ventricular size. No evidence of transependymal resorption of CSF. 3. Stable destructive mass at the central skull base, probable metastatic deposit. Interval History Seen at bedside today. 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 Along with the imbalance and difficulty ambulating he noted a new headache and some slurred speech which was intermittent. He denies any somatosensory changes or christopher weakness. He denied christopher vertigo. He has been on a diet for his DMII and has lost 30 lbs in recent months. His appetite is preserved and his energy level is good. Since starting decadron while admitted he states his symptoms have greatly improved and he can now ambulate without much difficulty. He is a former smoker who quit this year, but had smoked since his early teens, 50+ pk year. Past Medical History: morbid obesity unstable angina systolic HCf with EF 30-35% tobacco abuse HTN atrial fibrillation not on anticoagulation Past Surgical History: admitted to [facility] on 03/19/19 for an urgent cardiac catheterization with Impella placement in the setting of an NSTEMI. He underwent CABG x4 vessels on 03/20/19 subsequently completed cardiopulmonary rehab Family History: No pertinent cancer history Social History: Former smoker 50+ pk year, quit early 2019 Allergies / Meds Allergies: Coded Allergies: No Known Allergies (Unverified , 08/24/18) Home Meds Reported Medications Pantoprazole Sodium (Pantoprazole Sodium) 40 Mg Tablet.dr, 40 MG PO DAILY 06/22/20 Metoprolol Succinate (Metoprolol Succinate) 25 Mg Tab.er.24h, 12.5 MG PO BID 06/22/20 Ezetimibe (Ezetimibe) 10 Mg Tablet, 10 MG PO QHS 06/22/20 Lisinopril (Lisinopril) 5 Mg Tablet, 5 MG PO QHS 06/22/20 Atorvastatin Calcium (Atorvastatin Calcium) 80 Mg Tablet, 80 MG PO QHS 06/22/20 Aspirin (Ecotrin) 81 Mg Tablet.dr, 81 MG PO DAILY 04/05/19 Acetaminophen (Acetaminophen) 325 Mg Tablet, 650 MG PO Q4H PRN for FEVER 04/05/19 Multivitamin (Multivitamins) 1 Cap Cap, 1 CAP PO DAILY, CAP 08/24/18 Discontinued Reported Medications Digoxin (Digoxin) 125 Mcg Tablet, 125 MCG PO DAILY for 30 Days, #30 TAB 04/26/19 Ascorbic Acid (Vitamin C) 500 Mg Capsule, 500 MG PO DAILY for 28 Days, #28 CAP 04/26/19 Amiodarone HCl (Amiodarone HCl) 200 Mg Tablet, 200 MG PO DAILY for 30 Days, #30 TAB 04/26/19 Metoprolol Tartrate (Metoprolol Tartrate) 25 Mg Tablet, 12.5 MG PO BID for 30 D ays, #60 TAB 04/26/19 Potassium Chloride (Potassium Chloride) 10 Meq Tab.er.prt, 10 MEQ PO DAILY 04/05/19 Folic Acid (Folic Acid) 1 Mg Tablet, 1 MG PO DAILY 04/05/19 Ferrous Gluconate (Ferrous Gluconate) 324 Mg Tablet, 324 MG PO BID 04/05/19 Docusate Sodium (Stool Softener) 100 Mg Capsule, 100 MG PO BID PRN for CONS TIPATION 04/05/19 Ascorbic Acid (Ascorbic Acid) 500 Mg Tablet, 500 MG PO DAILY 04/05/19 Amiodarone HCl (Amiodarone HCl) 200 Mg Tablet, 200 MG PO DAILY TO TAKE X 3 WEEKS AFTER 7 DAYS OF 400MG DOSE 04/05/19 Simvastatin (Simvastatin) 20 Mg Tab, 20 MG PO DAILY, TAB 08/24/18 Discontinued Scripts Furosemide (Furosemide) 40 Mg Tablet, 40 MG PO DAILY, #30 TAB Prov:JOHN PAUL FLYNN MD 04/11/19 Nicotine (Nicotine Patch) 14 Mg Patch.td24, 1 PATCH TD DAILY, #30 PATCH Prov:JOHN PAUL FLYNN MD 04/11/19 Pantoprazole Sodium (Pantoprazole Sodium) 40 Mg Tablet.dr, 40 MG PO DAILY, #30 TABS Prov:JOHN PAUL FLYNN MD 04/11/19 Warfarin Sodium (Coumadin) 3 Mg Tablet, 3 MG PO DAILY@17, #14 TAB Prov:JOHN PAUL FLYNN MD 04/11/19 Review of Systems Constitutional: Reports: Weight Loss; Denies: Chills, Fever, Night Sweats Eyes: Denies: Pain, Vision change HEENT: Denies: Head Aches, Dysphagia, Sore Throat Skin: Denies: Rash, Lesions, Bruising Pulmonary: Denies: Dyspnea, Cough Cardiovascular: Denies: Chest Pain, Palpitations, Edema Gastrointestinal: Denies: Nausea, Vomiting, Abdominal Pain, Diarrhea Genitourinary: Denies: Dysuria, Frequency, Incontinence Hematologic: Denies: Bruising, Petecchia, Enlarged Lymph Nodes Musculoskeletal: Denies: Neck pain, Back pain Neurological: Denies: Weakness, Numbness, Incoordination, Change in Speech, Seizures Psych: Reports: Mood Normal; Denies: Memory Issues, Thoughts of Self Harm Vital Signs Vital Signs Date Time Temp Pulse Resp B/P (MAP) Pulse Ox O2 Delivery O2 Flow Rate FiO2 06/25/20 06:00 98.2 50 19 116/54 (74) 97 Room Air General Exam: Positive: Alert, Cooperative, No Acute Distress Eye Exam: Positive: PERRLA, EOMI ENT EXAM: Positive: Mucous membr. moist/pink, Pharynx Normal Neck Exam: Negative: Thyromegaly, Lymphadenopathy Chest Exam: Positive: Normal air movement; Negative: Rales, Rhonchi, Wheezing Heart Exam: Positive: Rate Normal, Regular Rhythm Abdomen Exam: Positive: Soft; Negative: Tenderness, Mass Extremity Exam: Negative: Edema, Tenderness Skin Exam: Positive: Nl turgor and temperature; Negative: Rash Neuro Exam: Positive: Normal Gait, Normal Speech, Strength at 5/5 X4 ext, Normal Tone, Sensation Intact, Cranial Nerves 3-12 NL Psych Exam: Positive: Mental status NL, Mood NL, Memory Intact Diagnostic and Laboratory Diagnostic Review Radiologic images, relevant labs and pathology reports were personally reviewed and discussed with Mr. Farley. Laboratory Tests 06/25/20 05:58 Laboratory Tests 06/25/20 05:58: Sodium Level 141, Potassium Level 4.6, Chloride Level 109H, Carbon Dioxide Level 24, Anion Gap 8, Blood Urea Nitrogen 40H, Creatinine 1.25, Glomerular Filtration Rate > 60.0, Fasting Glucose 130H, Calcium Level 8.9 Assessment and Plan Impression Mr. Farley is a 65 year old male former smoker with a history of DMII and CAD s/p CABG, who presented to [facility] with subacute imbalance, headache, dysarthria and difficulty ambulating for the past [address] head which revealed multiple parenchymal lesions with surrounding vasogenic edema concerning for metastases. Subsequent body imaging revealed a right lung mass and mediastinal adenopathy concerning for primary lung cancer. A tissue diagnosis is being pursued. He has been started on decadron with near complete resolution of neurologic symptoms. He had an MRI on 06/24/20 which revealed ~16 metastatic les ions of varying sized with a particular concentration in the posterior fossa which explain his ataxia. I am seeing him today at the request of the primary team for consideration of cranial RT. Stage Stage IV, lung cancer likely tissue diagnosis pending Performance Status 1 Plan We had an extensive discussion with Mr. Farley regarding the diagnosis at hand and available therapeutic options. This is likely a lung cancer based on chest imaging. He should have a CT abdomen and pelvis with contrast to complete his staging. I defer to primary team regarding plan for biopsy and approach for biopsy but would think that CT biopsy of the primary mass or bronchoscopic biopsy of a hilar or mediastinal node would both be practical. Once tissue is obtained, I recommend medical oncology consultation regarding systemic therapy options. By his improvement on decadron and apparent good performance status he would likely be a candidate for treatment. With respect to the brain he has, by my count, 16 metastatic lesions of varying size and distribution. Because of the overall burden in number and volume, I do not consider him a good candidate for SRS. I recommend that we proceed with whole brain radiation up front, and reserve SRS in case of further progression following WBRT. I will give 30 Gy in 10 fractions. I also recommend that we start Namenda concurrent with WBRT as this was associated with increased [id number]-failure on RTOG 0614 and is a safe well-tolerated medicine. A starting taper of namenda is as follows: Week 1: 5 mg once daily. Week 2: 5 mg BID Week 3: 5 mg QAM, 10 mg QPM Week 4: 10 mg BID I would appreciate if the inpatient team could start him on namenda 5 mg daily now, and upon discharge (which would surely happen before he completes RT) I will handle the titration and long filler cigar roller machine prescribing of Namenda. I would also be happy to take over management of his decadron upon discharge and think that his current dose could be reduced now based on his improvement. We discussed the logistics of receiving radiation therapy in detail including the need for a 1-time planning session. This can occur today. After discussing the risks, benefits and alternatives to radiation therapy, Mr. Farley was amenable to pursuing radiotherapy. All questions were answered to the patient's satisfaction and informed consent for treatment was obtained. We instructed the patient that if there were any questions,concerns or changes in clinical status in the interim to contact us. I also called his daughter Ofelia and updated her on the particulars of her Father's case. She agrees with the course of action. Recommendations Please obtain CT abdomen and pelvis with contrast to complete staging Please obtain biopsy for tissue diagnosis Please consult medical oncology once biopsy obtained or facilitate outpatient follow up if he is to be discharged prior to final pathology Please start namenda 5 mg QD Continue decadron, suggest that dose be decreased to 4 mg BID PO, which is a good home discharge dose WBRT 30 Gy in 10 fractions Simulation today Treatment start likely tomorrow or Tuesday HIEU KING MD Jun 25, 2020 11:06
[2020-06-25 11:07] LABS: BLOOD UREA NITROGEN 38 MG/DL (7-18); CALCIUM LEVEL 8.9 MG/DL (8.8-10.2); CARBON DIOXIDE LEVEL 24 MEQ/L (21-32); CHLORIDE LEVEL 107 MEQ/L (98-107); CREATININE FOR GFR 1.22 MG/DL (0.70-1.30); GLOMERULAR FILTRATION RATE > 60.0 (>49); GLUCOSE, FASTING 197 MG/DL (70-100); POTASSIUM SERUM 4.3 MEQ/L (3.5-5.1); SODIUM LEVEL 138 MEQ/L (136-145)
[2020-06-25] MEDS: KETOROLAC 30 MG/ML 1ML VIAL IV PRN (12:47)
[2020-06-25 14:00] VITALS: BP 130/55
--- NOTE | 2020-06-25 17:54 | CR.PDOC ---
General Date of Consultation: Jun 25, 2020 Referring Provider: RANDALL AVALOS D.O. Primary Care Physician: SAJAN DOWNEY DO Attending Physician: EMILY RAWLS MD Consultation REASON FOR CONSULTATION/CHIEF COMPLAINT: Suspected lung cancer. HISTORY OF PRESENT ILLNESS: Mr. Caleb Farley is a 65-year-old man admitted for confusion noted by family over the weekend. CT head 06/22/2020 showed multiple cerebral and cerebellar lesions with vasogenic edema suspicious for metastatic disease. Also note of a large lytic lesion of the sphenoid suspicious for osseous metastases. Chest x-ray 06/22/2020 showed new right upper lobe density suspicious for neoplasm. A CT chest, 06/22/2020 showed a large right upper lobe mass with 2 additional small pulmonary nodules. Also noted were mediastinal and right hilar lymph nodes. Brain MRI 06/24/2020 showed intracranial metastatic disease and a destructive mass at the central skull base. The patient is currently on dexamethasone 4 mg IV every 6 hours. Radiation oncology, Dr. Marcelo was consulted. The patient is scheduled to start brain radiation tomorrow. Medical oncology consulted for above. ALLERGIES: Please see below. HOME MEDICATIONS: Please see below. In-hospital medications: Etodolac. Aspirin. Pantoprazole. Dexamethasone. Heparin. ezetimibe. Lisinopril. Metoprolol. Acetaminophen. PAST MEDICAL HISTORY: Hypertension. Coronary artery disease. FAMILY HISTORY: His mother had lymphoma. A maternal aunt had breast cancer. A maternal uncle had lung cancer. SOCIAL HISTORY: Active smoker since teenage years 1-2 packs per day. Occasional alcohol. . Lives by himself. Has 4 grown kids. REVIEW OF SYSTEMS: CONSTITUTIONAL: Reports: Deliberate weight loss of 30 pounds. No fevers. HEENT: Reports: No changes in eyesight. No difficulty swallowing. CARDIOVASCULAR: Reports: No chest pain. No shortness of breath. RESPIRATORY: Reports: No shortness of breath. No cough. GENITOURINARY: Reports: No urinary problems. MUSCULOSKELETAL: Reports: Low back pain and knee pains. GASTROINTESTINAL: Reports: No abdominal pain, no nausea, no vomiting. SKIN: Reports no skin rash. NEUROLOGICAL: Reports: Confusion improved on steroids. PHYSICAL EXAMINATION: VITAL SIGNS: Please see below. GENERAL APPEARANCE: Seated comfortably in bed, not in distress. Conversational. HEENT: Pinkish conjunctiva, anicteric, no palpable cervical lymph nodes. RESPIRATORY: Fair air entry. No rales, no rhonchi. No wheeze. CARDIOVASCULAR: S1, S2 regular. ABDOMEN: Soft, positive bowel sounds, nontender, no palpable masses. EXTREMITIES: No calf swelling, no calf tenderness, no cyanosis. NEUROLOGICAL: Alert, oriented to time, place and person. PSYCHIATRIC: No anxiety. LABORATORY DATA: Please see below. ASSESSMENT/PLAN: Suspected lung cancer with mediastinal lymphadenopathy, skull metastasis and brain metastases. For whole brain radiation therapy under Dr. Marcelo. Needs tissue diagnosis. Please arrange biopsy of lung lesion or any accessible lesion. I discussed with Mr. Farley and his 2 daughters present at bedside that this is likely an incurable condition because of presence of metastatic disease. Systemic treatment options to be discussed once histological diagnosis is established. Agree with radiation oncology recommendation to have a CT abdomen and pelvis. The patient should also have a bone scan while in hospital to assess for other skeletal metastases. Will arrange a follow-up appointment with me once patient is discharged. Thank you for referring Mr. Caleb Farley. Vital Signs/I&O Vital Signs Date Time Temp Pulse Resp B/P (MAP) Pulse Ox O2 Delivery O2 Flow Rate FiO2 06/25/20 14:00 98.5 73 18 130/55 (80) 97 Room Air I&O- Last 24 Hours up to 6 AM 06/25/20 06:00 Intake Total 1460 ml Output Total 325 ml Balance 1135 ml Laboratory Data Labs 24H Laboratory Tests 2 06/25/20 05:58: Anion Gap 8, Glomerular Filtration Rate > 60.0, Calcium Level 8.9 06/25/20 10:27: Anion Gap 7L, Glomerular Filtration Rate > 60.0, Calcium Level 8.9 CBC/BMP Laboratory Tests 06/25/20 05:58 06/25/20 10:27 Allergies Coded Allergies: No Known Allergies (Unverified , 08/24/18) Home Medications Scheduled Aspirin (Ecotrin) 81 Mg Tablet.dr 81 MG PO DAILY, (Reported) Atorvastatin Calcium (Atorvastatin Calcium) 80 Mg Tablet, 80 MG PO QHS, (Reported) Ezetimibe (Ezetimibe) 10 Mg Tablet, 10 MG PO QHS, (Reported) Lisinopril (Lisinopril) 5 Mg Tablet, 5 MG PO QHS, (Reported) Metoprolol Succinate (Metoprolol Succinate) 25 Mg Tab.er.24h, 12.5 MG PO BID, (Reported) Multivitamin (Multivitamins) 1 Cap Cap, 1 CAP PO DAILY, (Reported) Pantoprazole Sodium (Pantoprazole Sodium) 40 Mg Tablet.dr, 40 MG PO DAILY, (Reported) Scheduled PRN Acetaminophen (Acetaminophen) 325 Mg Tablet, 650 MG PO Q4H PRN for FEVER, (Reported) DHEERAJ PETIT MD Jun 25, 2020 17:54
[2020-06-25] MEDS: GASTROGRAFIN SOLUTION 30ML PO SCH ×2 (18:47→19:12)
[2020-06-25] MEDS ORDERED: ISOVUE-370 76% 100ML VIAL As Ordered ONE (20:05)
--- NOTE | 2020-06-25 21:36 | IPNPDOC ---
Date Seen The patient was seen on 06/25/20. Progress Note SUBJECTIVE: Caleb was seen this morning by the hospitalist service while sitting upright and eating breakfast. He reports continued improvement in his headaches and has no balance/instability issues when walking to and from the bathroom under his own power. He denies any pain, episodes of dizziness, slurred speech, or decreased concentration. His appetite remains hearty and he is tolerating food without any issues. He denies current or overnight fever, chills, night sweats, chest pain, palpi tations, sob, cough, pleuritic chest pain, abdominal pain, nausea, vomiting, or diarrhea. OBJECTIVE PHYSICAL EXAMINATION: VITAL SIGNS: Please see below. GENERAL: Pleasant obese male lying in bed. No acute distress. Alert and oriented 3. HEENT: Normocephalic, atraumatic. Noninjected, anicteric sclera. PERRLA. MMM. No significant lymphadenopathy appreciated. Upper and lower dentures in place. CARDIOVASCULAR: Heart sounds continue to be somewhat distant. Heart rate was controlled and regular with regular rhythm. Normal S1, S2 with 2/6 systolic murmur appreciated best at right 2nd ICS. RESPIRATORY: Mildly decreased tidal volume with no appreciated adventitious breath sounds. No dullness to percussion. Symmetric chest expansion. Breathing room air. ABDOMINAL: Soft, obese. Nondistended and nontender. No guarding or rigidity appreciated. EXTREMITIES: Lower extremities are free of edema bilaterally. There is no clubbing or cyanosis NEUROLOGICAL: Awake, alert and oriented 3. PSYCHOLOGICAL: Mood and affect appear appropriate LABORATORY DATA, IMAGING STUDIES, MICROBIOLOGY: CT Abdomen/pelvis with contrast, 06/25/2020- Gallbladder wall enhancement or possible stone in the gallbladder neck. Otherwise negative CT abdomen/pelvis. No mass or adenopathy. Brain MRI, 06/24/20- Findings compatible with intracranial metastatic disease. Stable partial effacement of the 4th ventricle with stable ventricular size. No evidence of transependymal resorption of CSF. Stable destructive mass at the central skull base, probable metastatic deposit. Chest Xray, 06/22/20- Rounded density in the right upper lobe . Given the findings on head CT, this is suspicious for neoplasm. Chest CT, 06/22/20- Large, 6 cm, right upper lobe mass highly consistent with lung carcinoma. There are 2 additional small right upper lobe nodules, probably metastatic.Tissue diagnosis recommended as per Fleischner protocol. There are markedly enlarged mediastinal and right hilar lymph nodes highly consistent with metastatic adenopathy. Head CT, 06/22/20- Multiple cerebral and cerebellar masses with vasogenic edema highly suspicious for metastatic disease. Very large, 5 cm, lytic lesion of the sphenoid suspicious for osseous metastatic disease. -Please see below for more information- ASSESSMENT & PLAN: This is a 65yo male w/ h/o HFrEF (last EF b/w 30-35%) with previous Impella since removed, coronary artery disease with a NSTEMI in February 2019, status post CABG 4, unstable angina, hypertension, morbid obesity, former smoker who presented to the ED on 06/22 with chief complaint of headache and lightheadedness with intermittent episodes of slurred speech that had progressed over the past week. Imaging showed right upper lung mass with other right lung nodules and extensive mediastinal lymphadenopathy with multiple cerebral and cerebellar masses as well as lytic sphenoid lesion. Patient was admitted to PCU with presumed diagnosis of primary lung cancer with metastasis to the brain. #Evidence of stage four metastatic disease on imaging, lung ca likely primary (lung and brain masses with mediastinal lymphadenopathy) -Pt was seen by both medical and radiation oncology today. Hospitalist service sincerely appreciates the insight and recommendations of both med and rad omncology. -Pt will undergo whole brain radiation therapy with rad onc. Per Rad onc recommendation, Namenda 5 mg PO daily was started as it increases time to cognitive failure with radiation; and dose of decadron was switched to 4 mg PO bid as pt has had good response thus far with IV. Rest of radiation work-up is detailed in Rad Onc consultation note from today -CT abd/pelvis ordered for today, as well as a nuclear bone scan, to assess for further presence of met disease -Will arrange for CT guided lung biopsy with interventional radiology tomorrow to stage/characterize disease through histiological diagnosis for outpatient medical oncology follow-up to tailor treatment. Pt will be npo after midnight tonight in preparation. -Please see imaging section above for specific findings related to metastatic process -Upon admission, PT, OT, and speech therapy evaluations were all ordered #Heart failure with reduced ejection fraction -History of EF 30, 35% with previous and pillow device -Home Toprol medication continued -Continues to appear compensated on physical exam the past two days (06/23-) -2 g sodium diet but will be npo after midnight in preparation for lung bx tomorrow #Coronary artery disease status post CABG with an STEMI in 2019 -Home atorvastatin and zetia were discontinued yesterday as these medications portend a 5-year mortality benefit, yet in the context of his current neoplastic process, their administration is not warranted -C/w home 81 mg qd asa #Hypertension -Pressures well controlled since admission -Home lisinopril was continued today after being held as sK has been running high normal; will continue to reasses -c/w 2 g sodium diet #DVT prophylaxis: SC Heparin DISPOSITION: Pending CT guided IR lung biopsy likely to tomorrow for tissue dx VS, I&O, 24H, Fishbone Vital Signs/I&O Vital Signs Date Time Temp Pulse Resp B/P (MAP) Pulse Ox O2 Delivery O2 Flow Rate FiO2 06/25/20 14:00 98.5 73 18 130/55 (80) 97 Room Air I&O- Last 24 Hours up to 6 AM 06/25/20 06:00 Intake Total 1460 ml Output Total 325 ml Balance 1135 ml Laboratory Data 24H LABS Laboratory Tests 2 06/25/20 05:58: Anion Gap 8, Glomerular Filtration Rate > 60.0, Calcium Level 8.9 06/25/20 10:27: Anion Gap 7L, Glomerular Filtration Rate > 60.0, Calcium Level 8.9 CBC/BMP Laboratory Tests 06/25/20 05:58 06/25/20 10:27 GME ATTESTATION GME ATTESTATION My faculty preceptor for this patient encounter was physically present during the encounter and was fully available. All aspects of the patient interview, examination, medical decision making process, and medical care plan development were reviewed and approved by the faculty preceptor. The faculty preceptor is aware and concurs with the plan as stated in the body of this note and will attest to such by his/her cosignature. ATTENDING NOTE Patient was seen and examined by me personally with the residents and students. Agree with the above assessment and plan RANDALL AVALOS D.O. Jun 25, 2020 21:35 EMILY RAWLS MD Jul 02, 2020 09:35
--- NOTE | 2020-06-25 21:42 | REPVR ---
PROCEDURE INFORMATION: Exam: CT Abdomen And Pelvis With Contrast Exam date and time: 06/25/2020 8:25 PM Age: 65 years old Clinical indication: Other: Assess forpossible abd/pel mets in PT w/ brain TECHNIQUE: Imaging protocol: Computed tomography of the abdomen and pelvis with intravenous contrast. Radiation optimization: All CT scans at this facility use at least one of these dose optimization techniques: automated exposure control; mA and/or kV adjustment per patient size (includes targeted exams where dose is matched to clinical indication); or iterative reconstruction. Contrast material: ISOVUE 370; Contrast volume: 100 ml; Contrast route: INTRAVENOUS (IV); COMPARISON: No relevant prior studies available. FINDINGS: Heart: Mitral valvular calcifications. Liver: Normal. No mass. Gallbladder and bile ducts: Wall enhancement or possible stone in the gallbladder neck. Pancreas: Normal. No ductal dilation. Spleen: Normal. No splenomegaly. Adrenals: Normal. No mass. Kidneys and ureters: Normal. No hydronephrosis. Stomach and bowel: Unremarkable. No obstruction. No mucosal thickening. Appendix: A normal appendix is seen. Intraperitoneal space: Unremarkable. No free air. No significant fluid collection. Vasculature: There is mild calcification of the abdominal aorta with extension into the iliac arteries. Lymph nodes: Unremarkable. No enlarged lymph nodes. Urinary bladder: Unremarkable as visualized. Reproductive: Unremarkable as visualized. Bones/joints: Status post sternotomy. Degenerative changes of the lumbar spine including degenerative changes of the discs with interspace narrowing in lower lumbar facet arthropathy. Soft tissues: Unremarkable. Lungs: Question of lingular fibro-atelectatic change. IMPRESSION: 1. Gallbladder wall enhancement or possible stone in the gallbladder neck. 2. Otherwise negative CT abdomen/pelvis. No mass or adenopathy. Electronically signed by: Dilip Avery On 06/25/2020 21:42:19 PM
[2020-06-25 22:00] VITALS: BP 126/62
[2020-06-25] MEDS: EZETIMIBE 10 MG TAB (ZETIA) PO SCH (22:19)
[2020-06-25] MEDS: lisinopriL 5 MG TAB PO SCH (23:00)
[2020-06-26 06:00] VITALS: BP 122/64
[2020-06-26] MEDS: ASPIRIN 81 MG ENTERIC TAB PO SCH (08:11)
[2020-06-26] MEDS: METOPROLOL SUCC *XL* 12.5MG PER 1/2 TAB (TopROL *XL*) PO SCH ×2 (08:12→21:24)
[2020-06-26] MEDS: MEMANTINE 5MG TABLET (NAMENDA) PO SCH (08:12)
[2020-06-26] MEDS: PANTOPRAZOLE 40MG TAB (PROTONIX) PO SCH (08:12)
[2020-06-26] MEDS: HEPARIN SOD (PORCINE) 5000UNITS/ML 1ML VIAL/SYRINGE SC SCH (10:37)
[2020-06-26 14:40] VITALS: BP 112/58
[2020-06-26] MEDS: EZETIMIBE 10 MG TAB (ZETIA) PO SCH (21:23)
[2020-06-26] MEDS: lisinopriL 5 MG TAB PO SCH (21:23)
--- NOTE | 2020-06-26 21:40 | IPNPDOC ---
Date Seen The patient was seen on 06/26/20. Progress Note SUBJECTIVE: Caleb was seen and examined by the hospitalist service today while lying in bed. OBJECTIVE PHYSICAL EXAMINATION: VITAL SIGNS: Please see below. GENERAL: Pleasant obese male lying in bed. No acute distress. Alert and oriented 3. HEENT: Normocephalic, atraumatic. Noninjected, anicteric sclera. No significant lymphadenopathy appreciated. Upper and lower dentures in place. CARDIOVASCULAR: Heart rate and rhythm are regular. Normal S1, S2 with 2/6 systolic murmur appreciated best at right 2nd ICS. RESPIRATORY: No appreciated adventitious breath sounds. No dullness to percussion. Symmetric chest expansion. Breathing room air. ABDOMINAL: Soft, obese. Nondistended and nontender. No guarding or rigidity appreciated. EXTREMITIES: Lower extremities are free of edema bilaterally. There is no clubbing or cyanosis NEUROLOGICAL: Awake, alert and oriented 3. PSYCHOLOGICAL: Mood and affect appear appropriate LABORATORY DATA, IMAGING STUDIES, MICROBIOLOGY: Please see below. ASSESSMENT & PLAN: This is a 65yo male w/ h/o HFrEF (last EF b/w 30-35%) with previous Impella since removed, coronary artery disease with a NSTEMI in February 2019, status post CABG 4, unstable angina, hypertension, morbid obesity, former smoker who presented to the ED on 06/22 with chief complaint of headache and lightheadedness with intermittent episodes of slurred speech that had progressed over the past week. Imaging showed right upper lung mass with other right lung nodules and extensive mediastinal lymphadenopathy with multiple cerebral and cerebellar m asses as well as lytic sphenoid lesion. Patient was admitted to PCU with presumed diagnosis of primary lung cancer with metastasis to the brain. #Evidence of stage four metastatic disease on imaging, lung ca likely primary (lung and brain masses with mediastinal lymphadenopathy) -Pt was seen by both medical and radiation oncology yesterday. Hospitalist service sincerely appreciates the continued insight and recommendations of both med and rad omncology. -Pt will undergo whole brain radiation therapy with rad onc. Per Rad onc recommendation, Namenda 5 mg PO daily was started as it increases time to cognitive failure with radiation -scheduled dose of decadron was switched to 4 mg PO bid yesterday as pt has had good response thus far with IV. Rest of radiation work-up is detailed in Rad Onc consultation note from today -CT abd/pelvis ordered yesterday with nuclear bone scan ordered for today to assess for further presence of metastatic disease -Pt is scheduled for CT guided lung biopsy with interventional radiology tomorrow at 1530 for histiological diagnosis to tailor outpatient med onc treatment)(s). Pt will be npo after bfast tomorrow in preparation with heparin held. -Please see imaging section above for specific findings related to metastatic process -Upon admission, PT, OT, and speech therapy evaluations were all ordered #Heart failure with reduced ejection fraction -History of EF 30, 35% with previous and pillow device -Home Toprol medication continued -Continues to appear compensated on physical exam the past three days (06/23- 06/27) -2 g sodium diet but will be npo after midnight in preparation for lung bx tomorrow #Coronary artery disease status post CABG with an STEMI in 2019 -Home atorvastatin and zetia were discontinued yesterday as these medications portend a 5-year mortality benefit, yet in the context of his current neoplastic process, their administration is not warranted -C/w home 81 mg qd asa #Hypertension -Pressures well controlled since admission -Home lisinopril was continued yesterday after initially being held as sK had been running high normal; will continue to reasses -c/w 2 g sodium diet #DVT prophylaxis: SC Heparin will be held tomorrow prior to CT biopsy and then subsequently resumed after DISPOSITION: Pending CT guided IR lung biopsy tomorrow afternoon with likely discharge on Sat, 06/28 VS, I&O, 24H, Fishbone Vital Signs/I&O Vital Signs Date Time Temp Pulse Resp B/P (MAP) Pulse Ox O2 Delivery O2 Flow Rate FiO2 06/26/20 21:24 68 130/68 06/26/20 14:40 97.7 17 98 Room Air I&O- Last 24 Hours up to 6 AM 06/26/20 06:00 Intake Total 1050 ml Balance 1050 ml RANDALL AVALOS D.O. Jun 26, 2020 21:40
[2020-06-26 22:00] VITALS: BP 130/68
[2020-06-27 06:00] VITALS: BP 118/60
[2020-06-27 07:04] LABS: BLOOD UREA NITROGEN 29 MG/DL (7-18); CALCIUM LEVEL 8.9 MG/DL (8.8-10.2); CARBON DIOXIDE LEVEL 27 MEQ/L (21-32); CHLORIDE LEVEL 103 MEQ/L (98-107); CREATININE FOR GFR 1.12 MG/DL (0.70-1.30); GLOMERULAR FILTRATION RATE > 60.0 (>49); GLUCOSE, FASTING 142 MG/DL (70-100); POTASSIUM SERUM 4.6 MEQ/L (3.5-5.1); SODIUM LEVEL 137 MEQ/L (136-145)
[2020-06-27] MEDS: PANTOPRAZOLE 40MG TAB (PROTONIX) PO SCH (08:27)
[2020-06-27] MEDS: MEMANTINE 5MG TABLET (NAMENDA) PO SCH (08:27)
[2020-06-27] MEDS: METOPROLOL SUCC *XL* 12.5MG PER 1/2 TAB (TopROL *XL*) PO SCH ×2 (08:27→21:00)
[2020-06-27] MEDS: ASPIRIN 81 MG ENTERIC TAB PO SCH (08:28)
--- NOTE | 2020-06-27 10:11 | IPNPDOC ---
Text Note Date of Service The patient was seen on 06/27/20. NOTE Patient was seen and examined this morning by me. The patient states that his dizziness is much better and he is ready to get the lung biopsy done today. PHYSICAL EXAMINATION: GENERAL: Pleasant obese male lying in bed. No acute distress. Alert and oriented 3. HEENT: Normocephalic, atraumatic. Noninjected, anicteric sclera. No significant lymphadenopathy appreciated. Upper and lower dentures in place. CARDIOVASCULAR: Heart rate and rhythm are regular. Normal S1, S2 with 2/6 systolic murmur appreciated best at right 2nd ICS. RESPIRATORY: No appreciated adventitious breath sounds. No dullness to percussion. Symmetric chest expansion. Breathing room air. ABDOMINAL: Soft, obese. Nondistended and nontender. No guarding or rigidity appreciated. EXTREMITIES: Lower extremities are free of edema bilaterally. There is no clubbing or cyanosis NEUROLOGICAL: Awake, alert and oriented 3. PSYCHOLOGICAL: Mood and affect appear appropriate Labs reviewed Radiology reviewed. Bone scan results are pending ASSESSMENT & PLAN: This is a 65yo male w/ h/o HFrEF /ischemic cardio myopathy (last EF b/w 30-35%) with previous Impella since removed, coronary artery disease with a NSTEMI in February 2019, status post CABG 4, hypertension, morbid obesity, former smoker who presented to the ED on 06/22 with chief complaint of headache and lightheadedness with intermittent episodes of slurred speech that had progressed over the past week. Imaging showed right upper lung mass with other right lung nodules and extensive mediastinal lymphadenopathy with multiple cerebral and cerebellar masses as well as lytic sphenoid lesion. The patient has been seen by hematology oncology and they are waiting for the tissue biopsy now. The patient is scheduled for CT-guided lung biopsy on 06/27/20. The patient got a CT scan with IV contrast. Abdominal pelvis as well which came out to be negative. MRI of the brain showed multiple metastatic lesions. The bone scan has been done, and currently we are awaiting the results. Multiple discussions with the family have been done and the patient wants everything to be done at this time. Though he is DNR/DNI. After the lung biopsy improvement and there is no post biopsy complication such as pneumothorax. The patient potentially can be discharged tomorrow. The patient has been on Decadron 4 mg every 6 hours along with dementing. Continue with that on discharge. 1. Metastatic disease on imaging, lung ca likely primary (lung and brain masses with mediastinal lymphadenopathy): For tissue biopsy today and after that the patient will be scheduled for whole brain irradiation as well as chemotherapy by [facility]. This all can be done as an outpatient as long as we have the tissue biopsy done today. Currently the patient is on Decadron 4 mg every 6 and dementing for metastatic lesions in the brain. Awaiting the nuclear bone scan. CT scan of the abdomen, pelvis with contrast has been negative. 2. Heart failure with reduced ejection fraction: Likely ischemic cardiomyopathy, compensated at this time. On metoprolol and aspirin. No need of any diuretics at this time. Daily weights and proper monitoring 3. Coronary artery disease status post CABG with an STEMI in 2019. Continue with aspirin 81 mg daily as well as metoprolol. Recent benefits of continuation of aspirin discussed with the patient. 4. Hypertension. Continue lisinopril and metoprolol. 2 g sodium diet Disposition likely home in the next 24 hours if post lung biopsy x-ray is normal in the morning. CODE STATUS DNR/DNI VS,Fishbone, I+O VS, Fishbone, I+O Laboratory Tests 06/27/20 06:16 Vital Signs Date Time Temp Pulse Resp B/P (MAP) Pulse Ox O2 Delivery O2 Flow Rate FiO2 06/27/20 06:00 97.3 72 20 118/60 (79) 97 Room Air I&O- Last 24 Hours up to 6 AM 06/27/20 06:00 Intake Total 920 ml Output Total 0 ml Balance 920 ml EMILY RAWLS MD Jun 27, 2020 10:11
[2020-06-27] MEDS ORDERED: LIDOCAINE 1% MDV 20ML VIAL As Ordered ONE (15:56)
[2020-06-27 17:30] VITALS: BP 119/61
[2020-06-27] MEDS: EZETIMIBE 10 MG TAB (ZETIA) PO SCH (21:28)
[2020-06-27] MEDS: lisinopriL 5 MG TAB PO SCH (21:28)
[2020-06-27 22:00] VITALS: BP 112/58
[2020-06-28 06:00] VITALS: BP 118/52
[2020-06-28] MEDS: PANTOPRAZOLE 40MG TAB (PROTONIX) PO SCH (08:53)
[2020-06-28] MEDS: MEMANTINE 5MG TABLET (NAMENDA) PO SCH (08:53)
[2020-06-28] MEDS: ASPIRIN 81 MG ENTERIC TAB PO SCH (08:53)
[2020-06-28 09:00] VITALS: BP 100/70
[2020-06-28] MEDS: METOPROLOL SUCC *XL* 12.5MG PER 1/2 TAB (TopROL *XL*) PO SCH ×2 (09:00→21:00)
[2020-06-28 14:00] VITALS: BP 116/54
--- NOTE | 2020-06-28 14:31 | IPNPDOC ---
Date Seen The patient was seen on 06/28/20. Progress Note SUBJECTIVE: Caleb was seen and examined this morning by the hospitalist service while lying in bed. He underwent his first treatment of whole brain radiation yesterday afternoon with Dr. Goldberg of radiation oncology. He reports being scheduled for 10 sessions of radiation and total, occurring every weekday at 1:45 PM. He reports no significant symptoms/issues after the radiation treatment. After the radiation session yesterday, he went to CT for a guided needle tissue biopsy of his right upper lung mass. Unfortunately, after multiple unsuccessful attempts to obtain an adequate tissue biopsy, it was abandoned. Upon reviewing further discussion, we will once again attempt a CT-guided lung biopsy on Tuesday, 06/30 in order to obtain the necessary tissue biopsy from which to base all medical oncology treatment options and corresponding plans off of. Caleb reports some improvement in his headaches since yesterday. His headaches were already much improved from time of admission and he continues with the oral Decadron. He continues to have a good appetite and is eating and drinking without any issues. He denies any episodes of slurred speech, feeling lightheaded, dizziness, acute vision or hearing changes. He denies any current, or overnight, chest pain, palpitations, chest pressure, pleuritic chest pain, hemoptysis, shortness of breath, cough, nausea, vomiting, abdominal pain, or diarrhea. OBJECTIVE PHYSICAL EXAMINATION: VITAL SIGNS: Please see below. GENERAL: Pleasant obese male lying in bed. No acute distress. Alert and oriented 3. HEENT: Normocephalic, atraumatic. Noninjected, anicteric sclera. No significant lymphadenopathy appreciated. Upper and lower dentures in place. CARDIOVASCULAR: Heart rate and rhythm are regular. Normal S1, S2 with 2/6 systolic murmur appreciated best at right 2nd ICS. RESPIRATORY: No appreciated adventitious breath sounds. No dullness to percussion. Symmetric chest expansion. Breathing room air. ABDOMINAL: Soft, obese. Nondistended and nontender. No guarding or rigidity appreciated. EXTREMITIES: Lower extremities are free of edema bilaterally. There is no clubbing or cyanosis NEUROLOGICAL: Awake, alert and oriented 3. He responds appropriately to questions and commands. Non-dysarthric speech. Wide-based gait witnessed as pt walked to and from the bathroom under his own power. PSYCHOLOGICAL: Mood and affect appear appropriate LABORATORY DATA, IMAGING STUDIES, MICROBIOLOGY: CT-guided right upper lung biopsy (unsuccessful), 06/27/2020 Nuclear bone scan, 06/26/2020- official interpretive read yet to be documented on [employer]. CT Abdomen/pelvis with contrast, 06/25/2020- Gallbladder wall enhancement or possible stone in the gallbladder neck. Otherwise negative CT abdomen/pelvis. No mass or adenopathy. Brain MRI, 06/24/20- Findings compatible with intracranial metastatic disease. Stable partial effacement of the 4th ventricle with stable ventricular size. No evidence of transependymal resorption of CSF. Stable destructive mass at the central skull base, probable metastatic deposit. Chest Xray, 06/22/20- Rounded density in the right upper lobe . Given the findings on head CT, this is suspicious for neoplasm. Chest CT, 06/22/20- Large, 6 cm, right upper lobe mass highly consistent with lung carcinoma. There are 2 additional small right upper lobe nodules, probably metastatic.Tissue diagnosis recommended as per Fleischner protocol. There are markedly enlarged mediastinal and right hilar lymph nodes highly consistent with metastatic adenopathy. Head CT, 06/22/20- Multiple cerebral and cerebellar masses with vasogenic edema highly suspicious for metastatic disease. Very large, 5 cm, lytic lesion of the sphenoid suspicious for osseous metastatic disease. Please see below for labs/micro. ASSESSMENT AND PLAN: This is a 65yo male w/ h/o HFrEF (last EF b/w 30-35%) with previous Impella since removed, coronary artery disease s/p NSTEMI in February 2019 and CABG 4, unstable angina, hypertension, morbid obesity, former smoker who presented to the ED on 06/22 with chief complaint of headache and lightheadedness with intermittent episodes of slurred speech that had progressed over the past week. Imaging showed right upper lung mass with other right lung nodules and extensive mediastinal lymphadenopathy with multiple cerebral and cerebellar masses and vasogenic edema, as well as as a lytic sphenoid lesion. Patient was admitted to PCU with presumed diagnosis of primary lung cancer with metastasis to the brain. #Evidence of stage four metastatic disease on imaging, probable lung ca (likely primary) with many brain metastatic lesions and mediastinal lymphadenopathy -Both medical and radiation oncology consulted and have evaluated pt. Hospitalist service sincerely appreciates the continued insight and recommendations of both med and rad oncology -Pt had first of ten whole-brain radiation treatments yesterday afternoon (06/27). These sessions will occur every weekday at 1345 until all [address] Goldberg of rad onc is supervising physician -Per Rad onc recommendation, c/w both PO 4 mg Decadron bid and Namenda 5 mg PO daily; Namenda has shown to increase time to cognitive failure with radiation -CT guided lung biopsy ordered for yesterday (06/27) for tissue diagnosis to guide medical oncology treatments reportedly was an unsuccessful attempt. Upon review and discussion, we have ordered a repeat lung biopsy for Tuesday, 06/30. Patient will be npo after dinner on 06/29 with holding of his heparin after 06/29 evening dose in preparation for 06/30 biopsy. A follow-up chest x-ray for 07/01 has been preemptively ordered to rule out post-procedural pneumothorax -Every other day BMP labs to assess for any electrolyte changes in setting of numerous brain mets and vasogenic edema -Updates from yesterday (06/27) and today (06/28) have been communicated with patient's daughters Ofelia and Ledy -Please see imaging section above for specific findings related to metastatic process -Upon admission, PT, OT, and speech therapy evaluations were all ordered #Heart failure with reduced ejection fraction -History of EF 30, 35% with previous Impella device -Home Toprol medication continued (held this morning d/t low BP - - see htn section below) -Has been compensated on physical exam, every day since admission -2 g sodium diet for today and tomorrow with npo order after 06/29 dinner in preparation for biopsy -Due to his heart history, mode of bronchoscopy for biopsy has been deferred in favor of CT-guided method #Coronary artery disease status post CABG with an STEMI in 2019 -Home atorvastatin and zetia have been discontinued as these medications portend a 5-year mortality benefit, yet in the context of his current neoplastic process, their administration is not warranted -C/w home 81 mg qd asa #Hypertension -Pressures well controlled since admission, although this morning he was hypotensive at 100/70, and thusly his metoprolol was held. Hold parameters subsequently placed for the Toprol -home toprol and lisinopril were continued upon admission -c/w 2 g sodium diet #DVT prophylaxis: SC Heparin (will be held in prep for 06/30 biopsy) DISPOSITION: Pending CT guided IR lung biopsy on 06/30 with likely discharge to follow barring post-procedural pneumothorax GME ATTESTATION My faculty preceptor for this patient encounter was physically present during the encounter and was fully available. All aspects of the patient interview, examination, medical decision making process, and medical care plan development were reviewed and approved by the faculty preceptor. The faculty preceptor is aware and concurs with the plan as stated in the body of this note and will attest to such by his/her cosignature. ATTENDING NOTE I examined the patient, discussed his clinical picture and plan with the resident as noted above. We ultimately curbsided Dr. Hogue who agreed that it would be best to have him stay inpatient and have the biopsy re-try on tuesday. VS, I&O, 24H, Fishbone Vital Signs/I&O Vital Signs Date Time Temp Pulse Resp B/P (MAP) Pulse Ox O2 Delivery O2 Flow Rate FiO2 06/28/20 09:00 60 100/70 (80) 06/28/20 06:00 98.3 18 97 Room Air I&O- Last 24 Hours up to 6 AM 06/28/20 06:00 Intake Total 1095 ml Output Total 0 ml Balance 1095 ml RANDALL AVALOS D.O. Jun 28, 2020 14:31 LOUISE RUDD MD Jun 29, 2020 07:14
[2020-06-28] MEDS: lisinopriL 5 MG TAB PO SCH (21:27)
[2020-06-28] MEDS: HEPARIN SOD (PORCINE) 5000UNITS/ML 1ML VIAL/SYRINGE SQ SCH (21:27)
[2020-06-28 22:00] VITALS: BP 102/58
[2020-06-29 06:00] VITALS: BP 112/54
[2020-06-29] MEDS: MEMANTINE 5MG TABLET (NAMENDA) PO SCH (08:16)
[2020-06-29] MEDS: METOPROLOL SUCC *XL* 12.5MG PER 1/2 TAB (TopROL *XL*) PO SCH ×2 (08:17→21:00)
[2020-06-29] MEDS: ASPIRIN 81 MG ENTERIC TAB PO SCH (08:17)
[2020-06-29] MEDS: PANTOPRAZOLE 40MG TAB (PROTONIX) PO SCH (08:17)
[2020-06-29] MEDS: HEPARIN SOD (PORCINE) 5000UNITS/ML 1ML VIAL/SYRINGE SQ SCH ×2 (08:18→20:02)
--- NOTE | 2020-06-29 12:32 | IPNPDOC ---
Text Note Date of Service The patient was seen on 06/29/20. NOTE SUBJECTIVE: -Feels well this morning. No headaches, chest pain, palpitations, chest pressure, pleuritic chest pain, hemoptysis, shortness of breath, cough, nausea, vomiting, abdominal pain, or diarrhea. -Yesterday we discussed re-trying for CT guided biopsy on 06/30 to which he agreed and will therefore remain inpatient until then. OBJECTIVE PHYSICAL EXAMINATION: VITAL SIGNS: Please see below. GENERAL: No acute distress. Alert and oriented 3. Obese HEENT: NCAT. Noninjected, anicteric, MMM CARDIOVASCULAR: RRR, 2/6 systolic murmur at RUSB RESPIRATORY: CTAB ABDOMINAL: Obese, normoactive, soft, NTND. EXTREMITIES: WWP, 2+ DP pulses, no LE edema NEUROLOGICAL: AO 3. Clear speech, CN2-12 intact. 5/5 strength throughout. No noted deficits LABORATORY DATA: reviewed. IMAGING STUDIES: reviewed CT-guided right upper lung biopsy (unsuccessful), 06/27/2020 Nuclear bone scan, 06/26/2020 - Pending read CT Abdomen/pelvis with contrast, 06/25/2020- Gallbladder wall enhancement or possible stone in the gallbladder neck. Otherw ise negative CT abdomen/pelvis. No mass or adenopathy. Brain MRI, 06/24/20- Findings compatible with intracranial metastatic disease. Stable partial effacement of the 4th ventricle with stable ventricular size. No evidence of transependymal resorption of CSF. Stable destructive mass at the central skull base, probable metastatic deposit. Chest Xray, 06/22/20- Rounded density in the right upper lobe . Given the findings on head CT, this is suspicious for neoplasm. Chest CT, 06/22/20- Large, 6 cm, right upper lobe mass highly consistent with lung carcinoma. There are 2 additional small right upper lobe nodules, probably metastatic.Tissue diagnosis recommended as per Fleischner protocol. There are markedly enlarged mediastinal and right hilar lymph nodes highly consistent with metastatic adenopathy. Head CT, 06/22/20- Multiple cerebral and cerebellar masses with vasogenic edema highly suspicious for metastatic disease. Very large, 5 cm, lytic lesion of the sphenoid suspicious for osseous metastatic disease. ASSESSMENT: 65yo M w/ h/o HFrEF (last EF b/w 30-35%) with previous Impella since removed, coronary artery disease s/p NSTEMI in February 2019 and CABG 4, unstable angina, hypertension, morbid obesity, former smoker who presented to the ED on 06/22 with chief complaint of headache and lightheadedness with intermittent episodes of slurred speech that had progressed over the past week and imaging revealed a right upper lung mass with other right lung nodules and extensive mediastinal lymphadenopathy with multiple cerebral and cerebellar masses and vasogenic edema, as well as as a lytic sphenoid lesion, admitted with presumed diagnosis of primary lung cancer with metastasis to the brain with neurologic symptoms now improved with dexamethasone pending CT guided biopsy. #Headache and neurologic symptoms: Evidence of stage four metastatic disease on imaging, most likely primary lung, with many brain metastatic lesions and mediastinal lymphadenopathy -Both medical and radiation oncology consulted and have evaluated pt. -s/p 1 of 10 whole-brain radiation treatments 06/27. These sessions will occur every weekday at 1345 until all ten have been performed[address] Dr[address] Goldberg of rad onc is the supervising physician, ending 07/10/2020. -Per Rad onc recommendation, c/w both PO 4 mg Decadron bid and Namenda 5 mg PO daily; Namenda has shown to increase time to cognitive failure with radiation -CT guided lung biopsy ordered for yesterday (06/27) for tissue diagnosis to guid e medical oncology treatments reportedly was an unsuccessful attempt. Upon review and discussion, we have ordered a repeat lung biopsy for Tuesday, 06/30. Patient will be npo after dinner with holding of his heparin after 06/29 evening dose in preparation for 06/30 biopsy. A follow-up chest x-ray for 10/6 AM has been preemptively ordered to rule out post-procedural pneumothorax before likely discharge home. -Every other day BMP labs to assess for any electrolyte changes in setting of numerous brain mets and vasogenic edema -Upon admission, PT, OT, and speech therapy evaluations were all ordered #Heart failure with reduced ejection fraction -History of EF 30, 35% with previous Impella device -Home Toprol medication continued -Has been compensated on physical exam, every day since admission -2 g sodium diet for today and tomorrow with npo order after 06/29 dinner in preparation for biopsy #Coronary artery disease status post CABG with an STEMI in 2019 -Home atorvastatin and zetia have been discontinued as these medications portend a 5-year mortality benefit, yet in the context of his current neoplastic process, their administration is not warranted -C/w home 81 mg qd asa #Hypertension -continue toprol and lisinopril with hold parameters -c/w 2 g sodium diet #DVT prophylaxis: SC Heparin (will be held tonight in prep for 06/30 biopsy) DISPOSITION: Pending CT guided IR lung biopsy on 06/30 with likely discharge on 07/01 AM VS,Fishbone, I+O VS, Fishbone, I+O Vital Signs Date Time Temp Pulse Resp B/P (MAP) Pulse Ox O2 Delivery O2 Flow Rate FiO2 06/29/20 06:00 98.3 53 18 112/54 (73) 97 Room Air I&O- Last 24 Hours up to 6 AM 06/29/20 06:00 Intake Total 2160 ml Output Total 0 ml Balance 2160 ml LOUISE RUDD MD Jun 29, 2020 08:17
[2020-06-29 14:00] VITALS: BP 114/50
[2020-06-29] MEDS: lisinopriL 5 MG TAB PO SCH (21:00)
[2020-06-29 22:00] VITALS: BP 105/54
[2020-06-30] VITALS (10 sets, daily range): BP systolic 110–130; BP diastolic 65–78
[2020-06-30 06:01] LABS: HEMATOCRIT 44.8 % (42.0-52.0); HEMOGLOBIN 14.8 g/dl (13.5-17.5); MEAN CORPUSCULAR HEMOGLOBIN 29.6 pg (27.0-33.0); MEAN CORPUSCULAR VOLUME 89.6 fl (80.0-96.0); PLATELET COUNT, AUTOMATED 247 10^3/uL (150-450); WHITE BLOOD COUNT 18.4 10^3/uL (4.0-10.0)
[2020-06-30 06:21] LABS: BLOOD UREA NITROGEN 38 MG/DL (7-18); CALCIUM LEVEL 8.7 MG/DL (8.8-10.2); CARBON DIOXIDE LEVEL 25 MEQ/L (21-32); CHLORIDE LEVEL 102 MEQ/L (98-107); CREATININE FOR GFR 1.23 MG/DL (0.70-1.30); GLOMERULAR FILTRATION RATE > 60.0 (>49); GLUCOSE, FASTING 170 MG/DL (70-100); POTASSIUM SERUM 4.6 MEQ/L (3.5-5.1); SODIUM LEVEL 133 MEQ/L (136-145)
[2020-06-30] MEDS: ASPIRIN 81 MG ENTERIC TAB PO SCH (07:55)
[2020-06-30] MEDS: METOPROLOL SUCC *XL* 12.5MG PER 1/2 TAB (TopROL *XL*) PO SCH ×2 (07:56→20:12)
[2020-06-30] MEDS: PANTOPRAZOLE 40MG TAB (PROTONIX) PO SCH (07:56)
[2020-06-30] MEDS: MEMANTINE 5MG TABLET (NAMENDA) PO SCH (07:56)
[2020-06-30] MEDS ORDERED: LIDOCAINE 1% MDV 20ML VIAL As Ordered ONE (08:54)
--- NOTE | 2020-06-30 10:12 | IPNPDOC ---
Text Note Date of Service The patient was seen on 06/30/20. NOTE SUBJECTIVE: -No headaches, chest pain, palpitations, chest pressure, pleuritic chest pain, hemoptysis, shortness of breath, cough, nausea, vomiting, abdominal pain, or diarrhea. OBJECTIVE PHYSICAL EXAMINATION: VITAL SIGNS: Please see below. GENERAL: No acute distress. Alert and oriented 3. Obese HEENT: NCAT. Noninjected, anicteric, MMM CARDIOVASCULAR: RRR, 2/6 systolic murmur at RUSB RESPIRATORY: CTAB ABDOMINAL: Obese, normoactive, soft, NTND. EXTREMITIES: WWP, 2+ DP pulses, no LE edema NEUROLOGICAL: AO 3. Clear speech, CN2-12 intact. 5/5 strength throughout. No no neto deficits LABORATORY DATA: reviewed. WBC 18.4 hgb 14.8 platelets 247 na 133 K 4.6 Cr 1.23 glucose 170 IMAGING STUDIES: reviewed CT-guided right upper lung biopsy (unsuccessful), 06/27/2020 Nuclear bone scan, 06/26/2020 - Pending read CT Abdomen/pelvis with contrast, 06/25/2020- Gallbladder wall enhancement or possible stone in the gallbladder neck. Otherwise negative CT abdomen/pelvis. No mass or adenopathy. Brain MRI, 06/24/20- Findings compatible with intracranial metastatic disease. Stable partial effacement of the 4th ventricle with stable ventricular size. No evidence of transependymal resorption of CSF. Stable destructive mass at the central skull base, probable metastatic deposit. Chest Xray, 06/22/20- Rounded density in the right upper lobe . Given the findings on head CT, this is suspicious for neoplasm. Chest CT, 06/22/20- Large, 6 cm, right upper lobe mass highly consistent with lung carcinoma. There are 2 additional small right upper lobe nodules, probably metastatic.Tissue diagnosis recommended as per Fleischner protocol. There are markedly enlarged mediastinal and right hilar lymph nodes highly consistent with metastatic adenopathy. Head CT, 06/22/20- Multiple cerebral and cerebellar masses with vasogenic edema highly suspicious for metastatic disease. Very large, 5 cm, lytic lesion of the sphenoid suspicious for osseous metastatic disease. ASSESSMENT: 65yo M w/ h/o HFrEF (last EF b/w 30-35%) with previous Impella since removed, coronary artery disease s/p NSTEMI in February 2019 and CABG 4, unstable angina, hypertension, morbid obesity, former smoker who presented to the ED on 06/22 with chief complaint of headache and lightheadedness with intermittent episodes of slurred speech that had progressed over the past week and imaging revealed a right upper lung mass with other right lung nodules and extensive mediastinal lymphadenopathy with multiple cerebral and cerebellar masses and vasogenic edema, as well as as a lytic sphenoid lesion, admitted with presumed diagnosis of primary lung cancer with metastasis to the brain with neurologic symptoms now improved with dexamethasone pending CT guided biopsy today. #Headache and neurologic symptoms: Evidence of stage four metastatic disease on imaging, most likely primary lung, with many brain metastatic lesions and mediastinal lymphadenopathy -Both medical and radiation oncology consulted and have evaluated pt. -s/p 1 of 10 whole-brain radiation treatments 06/27. These sessions will occur every weekday at 1345 until all ten have been performed[address] Dr. Goldberg of rad onc is the supervising physician, ending 07/10/2020. -Per Rad onc recommendation, c/w both PO 4 mg Decadron bid and Namenda 5 mg PO daily; Namenda has shown to increase time to cognitive failure with radiation -CT guided lung biopsy on 06/27 was reportedly was an unsuccessful attempt. Upon review and discussion, we have ordered a repeat lung biopsy for Tuesday, 06/30. Patient will be npo after dinner with holding of his heparin after 06/29 evening dose in preparation for 06/30 biopsy. A follow-up chest x-ray for 10/6 AM has been preemptively ordered to rule out post-procedural pneumothorax before likely discharge home. -Every other day BMP labs to assess for any electrolyte changes in setting of numerous brain mets and vasogenic edema -Upon admission, PT, OT, and speech therapy evaluations were all ordered #Heart failure with reduced ejection fraction -History of EF 30, 35% with previous Impella device -Home Toprol medication continued -Has been compensated on physical exam, every day since admission -2 g sodium diet for today and tomorrow with npo order after 06/29 dinner in preparation for biopsy #Coronary artery disease status post CABG with an STEMI in 2019 -Home atorvastatin and zetia have been discontinued as these medications portend a 5-year mortality benefit, yet in the context of his current neoplastic process, their administration is not warranted -C/w home 81 mg qd asa #Hypertension -continue toprol and lisinopril with hold parameters -c/w 2 g sodium diet #DVT prophylaxis: SC Heparin (will be held tonight in prep for 06/30 biopsy) DISPOSITION: Pending CT guided IR lung biopsy on 06/30 with likely discharge on 07/01 AMSUBJECTIVE: -Feels well this morning. No headaches, chest pain, palpitations, chest pressure, pleuritic chest pain, hemoptysis, shortness of breath, cough, nausea, vomiting, abdominal pain, or diarrhea. -Yesterday we discussed re-trying for CT guided biopsy on 06/30 to which he agreed and will therefore remain inpatient until then. OBJECTIVE PHYSICAL EXAMINATION: VITAL SIGNS: Please see below. GENERAL: No acute distress. Alert and oriented 3. Obese HEENT: NCAT. Noninjected, anicteric, MMM CARDIOVASCULAR: RRR, 2/6 systolic murmur at RUSB RESPIRATORY: CTAB ABDOMINAL: Obese, normoactive, soft, NTND. EXTREMITIES: WWP, 2+ DP pulses, no LE edema NEUROLOGICAL: AO 3. Clear speech, CN2-12 intact. 5/5 strength throughout. No noted deficits LABORATORY DATA: reviewed. IMAGING STUDIES: reviewed CT-guided right upper lung biopsy (unsuccessful), 06/27/2020 Nuclear bone scan, 06/26/2020 - Pending read CT Abdomen/pelvis with contrast, 06/25/2020- Gallbladder wall enhancement or possible stone in the gallbladder neck. Otherwise negative CT abdomen/pelvis. No mass or adenopathy. Brain MRI, 06/24/20- Findings compatible with intracranial metastatic disease. Stable partial efface ment of the 4th ventricle with stable ventricular size. No evidence of transependymal resorption of CSF. Stable destructive mass at the central skull base, probable metastatic deposit. Chest Xray, 06/22/20- Rounded density in the right upper lobe . Given the findings on head CT, this is suspicious for neoplasm. Chest CT, 06/22/20- Large, 6 cm, right upper lobe mass highly consistent with lung carcinoma. There are 2 additional small right upper lobe nodules, probably metastatic.Tissue diagnosis recommended as per Fleischner protocol. There are markedly enlarged mediastinal and right hilar lymph nodes highly consistent with metastatic adenopathy. Head CT, 06/22/20- Multiple cerebral and cerebellar masses with vasogenic edema highly suspicious for metastatic disease. Very large, 5 cm, lytic lesion of the sphenoid suspicious for osseous metastatic disease. ASSESSMENT: 65yo M w/ h/o HFrEF (last EF b/w 30-35%) with previous Impella since removed, coronary artery disease s/p NSTEMI in February 2019 and CABG 4, unstable angina, hypertension, morbid obesity, former smoker who presented to the ED on 06/22 with chief complaint of headache and lightheadedness with intermittent episodes of slurred speech that had progressed over the past week and imaging revealed a right upper lung mass with other right lung nodules and extensive mediastinal lymphadenopathy with multiple cerebral and cerebellar masses and vasogenic edema, as well as as a lytic sphenoid lesion, admitted with presumed diagnosis of primary lung cancer with metastasis to the brain with neurologic symptoms now improved with dexamethasone pending CT guided biopsy. #Headache and neurologic symptoms: Evidence of stage four metastatic disease on imaging, most likely primary lung, with many brain metastatic lesions and mediastinal lymphadenopathy -Both medical and radiation oncology consulted and have evaluated pt. -s/p 1 of 10 whole-brain radiation treatments 06/27. These sessions will occur every weekday at 1345 until all ten have been performed. Dr. Goldberg of rad onc is the supervising physician, ending 07/10/2020. -Per Rad onc recommendation, c/w both PO 4 mg Decadron bid and Namenda 5 mg PO daily; Namenda has shown to increase time to cognitive failure with radiation -CT guided lung biopsy on 06/27 was reportedly unsuccessful and he is due for a repeat lung biopsy today. A follow-up chest x-ray for 10/6 AM has been ordered to rule out post-procedural pneumothorax before likely discharge home. -Daily BMPs labs to assess for any electrolyte changes in setting of numerous brain mets and vasogenic edema -Upon admission, PT, OT, and speech therapy evaluations were all ordered and he he is doing very well from that perspective # Leukocytosis: 2/2 steroids -No infectious signs and symptoms, will monitor vitals and Q2D CBC while inpatient #Heart failure with reduced ejection fraction -History of EF 30, 35% with previous Impella device -Home Toprol medication continued -Has been compensated on physical exam, every day since admission -2 g sodium diet for today and tomorrow with npo order after 06/29 dinner in preparation for biopsy #Coronary artery disease status post CABG with an STEMI in 2019 -Home atorvastatin and zetia have been discontinued as these medications portend a 5-year mortality benefit, yet in the context of his current neoplastic proce ss, their administration is not warranted -C/w home 81 mg qd asa #Hypertension -continue toprol and lisinopril with hold parameters -c/w 2 g sodium diet #DVT prophylaxis: SC Heparin (will be held tonight in prep for 06/30 biopsy) DISPOSITION: Pending CT guided IR lung biopsy this morning with likely discharge on 07/01 AM VS,Jovannybone, I+O VS, Fishbone, I+O Laboratory Tests 06/30/20 05:42 Vital Signs Date Time Temp Pulse Resp B/P (MAP) Pulse Ox O2 Delivery O2 Flow Rate FiO2 06/30/20 06:00 98.5 66 18 129/66 (87) 95 Room Air I&O- Last 24 Hours up to 6 AM 06/30/20 06:00 Intake Total 1180 ml Output Total 150 ml Balance 1030 ml LOUISE RUDD MD Jun 30, 2020 07:19
--- NOTE | 2020-06-30 14:21 | MEDONCPDOC ---
Med Onc Office Note.txt Date of Visit Jun 30, 2020 Office Note Patient seen after RT treatment today. He has been tolerating namenda 5 mg and decadron 4 mg BID well. He has no complaints for me today. No recrudescent neuro symptoms. He stated that he will be discharged soon. To that end I have sent prescriptions for both namenda titration pack and decadron taper (to begin after discharge) to [facility]. The remainder of his discharge medications I will leave to the primary team. CC TO: Primary Care Provider: Priscila Hassan DO Referring Provider: HIUE KING MD Jun 30, 2020 14:21
[2020-06-30] MEDS: lisinopriL 5 MG TAB PO SCH (20:13)
[2020-06-30] MEDS: HEPARIN SOD (PORCINE) 5000UNITS/ML 1ML VIAL/SYRINGE SQ SCH (21:47)
[2020-07-01 06:00] VITALS: BP 131/71
[2020-07-01 06:15] LABS: HEMATOCRIT 45.1 % (42.0-52.0); MEAN CORPUSCULAR HEMOGLOBIN 29.8 pg (27.0-33.0); MEAN CORPUSCULAR HGB CONC 33.3 g/dl (32.0-36.5); MEAN CORPUSCULAR VOLUME 89.5 fl (80.0-96.0); PLATELET COUNT, AUTOMATED 249 10^3/uL (150-450); RED BLOOD COUNT 5.04 10^6/uL (4.30-6.10); WHITE BLOOD COUNT 15.4 10^3/uL (4.0-10.0)
[2020-07-01] MEDS: MEMANTINE 5MG TABLET (NAMENDA) PO SCH (10:02)
[2020-07-01] MEDS: PANTOPRAZOLE 40MG TAB (PROTONIX) PO SCH (10:02)
[2020-07-01] MEDS: ASPIRIN 81 MG ENTERIC TAB PO SCH (10:02)
[2020-07-01] MEDS: HEPARIN SOD (PORCINE) 5000UNITS/ML 1ML VIAL/SYRINGE SQ SCH (10:02)
[2020-07-01 10:03] VITALS: BP 102/58
[2020-07-01] MEDS: METOPROLOL SUCC *XL* 12.5MG PER 1/2 TAB (TopROL *XL*) PO SCH (10:03)
--- NOTE | 2020-07-01 11:30 | DS.PDOC ---
Discharge Summary General Date of Admission Jun 22, 2020 at 20:13 Date of Discharge 07/01/2020 Discharge Summary PROCEDURES PERFORMED DURING STAY: IR guided biopsy of Lung mass on 06/30 ADMITTING DIAGNOSES / DISCHARGE DIAGNOSES: Headache and neurologic symptoms - likely 2/3 metastatic disease suspected to be from lung primary Heart failure with reduced ejection fraction Coronary artery disease status post CABG with an STEMI in 2019 Hypertension DVT prophylaxis COMPLICATIONS/CHIEF COMPLAINT: Slurred speech, headache, light-headedness HISTORY OF PRESENT ILLNESS: Patient is a 65-year-old male with a PMHx of CAD s/p CABG (03/20/2019), Unstable angina, Systolic CHF (EF: 30-35%), HTN, Tobacco abuse, Morbid Obesity, who presented to the hospital with complaints of slurred speech, headache and lightheadedness. Imaging completed in the emergency room had revealed multiple cerebral and cerebellar masses with vasogenic edema highly suspicious for metastatic disease. Patient was admitted to the hospital service for further evaluation and treatment. Medical oncology and radiation oncology were called on consultation. HOSPITAL COURSE: Headache and neurologic symptoms - likely 2/3 metastatic disease suspected to be from lung primary - Currently patient has reported improvement of his symptoms - No focal neurologic deficits - Imaging noted below - Patient has been started on whole brain radiation; Dexamethasone and Memantine - Medical oncology and radiation oncology on consultation - s/p Biopsy of lung mass on 06/30; will have outpatient follow-up with medical oncology for results of biopsy - Patient has been cleared by physical therapy for discharge home. Will have outpatient follow-up with primary care medical oncology and radiation oncology within the next 7 days - Patient has been advised to remain compliant with dexamethasone taper / memantine that has been prescribed by radiation oncology Heart failure with reduced ejection fraction - No evidence of decompensation - History of EF 30, 35% with previous Impella device - c/w metoprolol Coronary artery disease status post CABG with an STEMI in 2019 - c/w ASA, Lisinopril Hypertension - BP well controlled - c/w Metoprolol and lisinopril with hold parameters DVT prophylaxis -c w/ Heparin DISCHARGE MEDICATIONS: Please see below. ALLERGIES: Please see below. PHYSICAL EXAMINATION ON DISCHARGE: Vitals (See below) General: Sitting up in bed and appears to be comfortable, AAOx3 HEENT: NC, AT CVS: +S1S2 Lungs: Fair air entry b/l, no evidence of wheezing, rhonchi or crackles Abdomen: Soft, ND, NT Extremities: - Edema, - Calf tenderness LABORATORY DATA: Please see below. IMAGING: CT-guided right upper lung biopsy (unsuccessful), 06/27/2020 Nuclear bone scan, 06/26/2020 - Pending read CT Abdomen/pelvis with contrast, 06/25/2020- Gallbladder wall enhancement or possible stone in the gallbladder neck. Oth erwise negative CT abdomen/pelvis. No mass or adenopathy. Brain MRI, 06/24/20- Findings compatible with intracranial metastatic disease. Stable partial effacement of the 4th ventricle with stable ventricular size. No evidence of transependymal resorption of CSF. Stable destructive mass at the central skull base, probable metastatic deposit. Chest Xray, 06/22/20- Rounded density in the right upper lobe . Given the findings on head CT, this is suspicious for neoplasm. Chest CT, 06/22/20- Large, 6 cm, right upper lobe mass highly consistent with lung carcinoma. There are 2 additional small right upper lobe nodules, probably metastatic.Tissue diagnosis recommended as per Fleischner protocol. There are markedly enlarged mediastinal and right hilar lymph nodes highly consistent with metastatic adenopathy. Head CT, 06/22/20- Multiple cerebral and cerebellar masses with vasogenic edema highly suspicious for metastatic disease. Very large, 5 cm, lytic lesion of the sphenoid suspicious for osseous metastatic disease. ACTIVITY: [As tolerated]. DISCHARGE PLAN: Follow-up with primary care provider, medical oncology and radiation oncology within the next 7 days Remain compliant with treatment plan and medications Return to the ER if you experience any problems DISPOSITION: Home with services DISCHARGE CONDITION: [Stable]. TIME SPENT ON DISCHARGE: 35 minutes. Vital Signs/I&Os Vital Signs Date Time Temp Pulse Resp B/P (MAP) Pulse Ox O2 Delivery O2 Flow Rate FiO2 07/01/20 10:03 102/58 07/01/20 06:00 97.9 65 18 96 Room Air I&O- Last 24 Hours up to 6 AM 07/01/20 06:00 Intake Total 740 ml Output Total 1600 ml Balance -860 ml Laboratory Data Labs 24H Laboratory Tests 2 07/01/20 05:48: Nucleated Red Blood Cells % (auto) 0.0 CBC/BMP Laboratory Tests 07/01/20 05:48 Discharge Medications Scheduled Aspirin (Ecotrin) 81 Mg Tablet.dr, 81 MG PO DAILY, (Reported) Atorvastatin Calcium (Atorvastatin Calcium) 80 Mg Tablet, 80 MG PO QHS, (Reported) Ezetimibe (Ezetimibe) 10 Mg Tablet, 10 MG PO QHS, (Reported) Lisinopril (Lisinopril) 5 Mg Tablet, 5 MG PO QHS, (Reported) Metoprolol Succinate (Metoprolol Succinate) 25 Mg Tab.er.24h, 12.5 MG PO BID, (Reported) Multivitamin (Multivitamins) 1 Cap Cap, 1 CAP PO DAILY, (Reported) Pantoprazole Sodium (Pantoprazole Sodium) 40 Mg Tablet.dr, 40 MG PO DAILY, (Reported) Scheduled PRN Acetaminophen (Acetaminophen) 325 Mg Tablet, 650 MG PO Q4H PRN for FEVER, (Reported) Allergies Coded Allergies: No Known Allergies (Unverified , 08/24/18) ED MURRELL MD Jul 01, 2020 11:30
--- NOTE | 2020-07-02 12:52 | REP ---
TWO-VIEW SINUSES HISTORY: Rule out orbital foreign body. TECHNIQUE: AP and lateral views of the sinus and orbit regions demonstrate no evidence of metallic foreign body in the region of either orbit. The patient is cleared for MRI exam. [facility]
--- NOTE | 2020-07-02 12:53 | REP ---
WHOLE BODY BONE SCAN HISTORY: Metastatic cancer. Patient reports pain in the left knee. History of metastatic malignancy. TECHNIQUE: 19.4 mCi of Technetium-99m MDP is injected and standard whole body imaging is acquired. SCINTIGRAPHIC FINDINGS: There is uptake in bilateral kidneys and in the urinary bladder. There is a suspicious focus of increased uptake in the distal diaphysis of the left femur. This is a fairly large lesion. Radiographs are recommended to help assess for risk of pathologic fracture. Otherwise, distribution of skeletal tracer is essentially normal. IMPRESSION: Suspicious large lesion in the left distal femur. Recommend radiographs to help assess for risk of pathologic fracture. Likely a metastasis. Otherwise, negative whole body bone scan. [facility]
[2020-07-03] MEDS ORDERED: PERC5TAB12 PO (11:58)
[2020-07-07] MEDS ORDERED: PROC10TA4 PO (10:36)
[2020-07-07] MEDS ORDERED: ONDA8TAB10 PO (10:36)
--- NOTE | 2020-07-07 15:25 | REP ---
CT-GUIDED RIGHT LUNG BIOPSY This procedure was performed by MARGARITA Oro, under the direct supervision of Dr. Cox. The risks and benefits of the procedure were explained to the patient and an informed consent was obtained both verbally and written. Directly prior to the start of the procedure, a formal time-out was done in the procedure room. The right lung mass was localized using CT guidance. The skin was prepped and draped in a sterile fashion. Approximately 7 mL of 1% Lidocaine was used as a local anesthetic. A small skin jo-ann was made and a 19-20 gauge coaxial biopsy system was inserted. Unfortunately, the patient was unable to maintain a consistent breath hold and we were unable to reach the nodule safely. The procedure was stopped and the patient was sent back to the unit. SELWYN
--- NOTE | 2020-07-07 15:26 | REP ---
SINGLE VIEW CHEST HISTORY: Right lung biopsy. TECHNIQUE: Single expiratory view of the chest is performed following CT-guided right lung biopsy. FINDINGS: The lobulated mass in the right upper lobe of the lung is again seen unchanged. There is no pneumothorax following CT-guided biopsy. Heart and mediastinum are unchanged in appearance. Multiple sternal wires are present. An ill-defined left basilar opacity is again noted. IMPRESSION: No pneumothorax status post CT-guided biopsy right lung. MTDD
[2020-07-29] MEDS ORDERED: ONDA8TAB10 PO (18:11)
== END 2020-07-01 14:04 | disposition home or self-care (01) | DRG 136 ==
LOC: M ED 17:06 → M ED INP 20:13 → M MSPAV 22:40 → ENRESERV 22:41
PROVIDERS: ADMIT Internal Medicine; ATTEND Internal Medicine
PROC: 0BBC3ZX Excision of Right Upper Lung Lobe, Percutaneous Approach, Diagnostic (ICD-10-PCS; principal; 2020-06-30 09:15)
DX: C34.11 Malignant neoplasm of upper lobe, right bronchus or lung (principal); G93.6 Cerebral edema; I11.0 Hypertensive heart disease with heart failure; C79.31 Secondary malignant neoplasm of brain; C79.51 Secondary malignant neoplasm of bone; E66.01 Morbid (severe) obesity due to excess calories; I50.22 Chronic systolic (congestive) heart failure; I48.20 Chronic atrial fibrillation, unspecified; Z68.39 Body mass index [BMI] 39.0-39.9, adult; I25.10 Atherosclerotic heart disease of native coronary artery without angina pectoris; I25.2 Old myocardial infarction; F17.200 Nicotine dependence, unspecified, uncomplicated; Z79.899 Other long term (current) drug therapy; Z87.891 Personal history of nicotine dependence; Z66 Do not resuscitate; E11.9 Type 2 diabetes mellitus without complications

== ENCOUNTER → 2020-07-03 | Outpatient (CLI) | payer BC ==
[~2020-07-03] MED LIST changes: +ATOR80TA59 PO; +CVS10CAP8 PO; +EZET10TA21 PO; +LISI-542 PO; +LOMO2.5T PO; +METO1TAB32 PO; +NAME10TA PO; +ONDA8TAB10 PO; +OXYC1TAB23 PO; +PANT-23 PO; +PERC5TAB12 PO; +PROC10TA4 PO; +TEMA15CA2 PO; +VITMTA PO
--- NOTE | 2020-07-08 08:09 | REP ---
LEFT FEMUR SERIES: 4-VIEWS HISTORY: Metastatic disease. Bone scan positive. COMPARISON: Bone scan 06/26/2020. FINDINGS: There is a 10-cm long lesion involving the medial cortex of the distal femoral diaphysis with a permeative pattern of lytic destruction and early aggressive type periosteal reaction along the proximal end of this. This is consistent with a cortical metastasis and corresponds with the area of increased uptake on recent bone scan. The lesion appears to be centered in an involved medial cortex. Lateral cortex and the anterior and posterior cortex appear to be relatively spared. There is some vascular calcification. No definite soft tissue mass visible on plain radiographs. On the AP view of the hip, there is an ill-defined segment of the superior cortex of the left superior pubic ramus, and I cannot exclude an early lesion in this location. This is not visible on the frog leg view of the hip and is somewhat equivocal. No other lesion is seen. IMPRESSION: Aggressive permeative destructive lesion medial cortex distal femoral diaphysis on the left consistent with a metaphysis and corresponding to bone scan. Equivocal cortical erosion involving the superior pubic ramus on the left. MTDD
== END ==
LOC: M RAD 11:16
PROVIDERS: ATTEND Specialist
DX: C79.51 Secondary malignant neoplasm of bone (principal)

== ENCOUNTER 2020-07-10 09:35 | Emergency (ER) | payer BC ==
[~2020-07-10] VITALS: Ht 175.3 cm; Wt 120.3 kg
[~2020-07-10 09:35] MED LIST changes: -CVS10CAP8 PO; -ISOVUE-300 61% 50ML VIAL As Ordered ONE; -LIDOCAINE 1% MDV 20ML VIAL As Ordered ONE; -LOMO2.5T PO; -MIDAZOLAM INJ 2MG/2ML VIAL (J2250 PER 1MG) As Ordered ONE; -NAME10TA PO; -NS 1,000 ML IV ONE; -OXYC1TAB23 PO; -TEMA15CA2 PO; -VITMTA PO; -ceFAZolin 1GM VIAL (J0690 PER 500MG) As Ordered ONE; -ceFAZolin 2 GM/D5W 50 ML IV BAG (J0690 PER 500MG) As Ordered ONE; -diphenhydrAMINE 50MG/ML VIAL (J1200) As Ordered ONE; -fentaNYL 100 MCG/2 ML INJECTION (J3010) As Ordered ONE
[2020-07-10] MEDS ORDERED: NS 1,000 ML IV ONE (10:15)
[2020-07-10 10:18] LABS: VENOUS BASE EXCESS -4.3 (-2.0-2.0); VENOUS HCO3 23.3 MEQ/L (23.0-27.0); VENOUS O2 SATURATION 57.6 % (60.0-80.0); VENOUS PARTIAL PRESSURE CO2 52.6 mmHg (38.0-50.0); VENOUS PARTIAL PRESSURE O2 33.1 mmHg (30.0-50.0); VENOUS PH 7.264 UNITS (7.330-7.430); VENOUS TOTAL CO2 24.9 MEQ/L (24.0-28.0)
--- NOTE | 2020-07-10 10:22 | REPVR ---
PROCEDURE INFORMATION: Exam: XR Chest, 1 View Exam date and time: 07/10/2020 10:00 AM Age: 65 years old Clinical indication: Chest pain TECHNIQUE: Imaging protocol: XR of the chest Views: 1 view. COMPARISON: NE - POST BX CHEST 06/30/2020 12:48:23 PM (report not provided) FINDINGS: Lungs: There is mild platelike atelectasis in the left mid lung. There is again lobulated masslike opacity in the right mid to upper lung, measuring up to 6 cm. Pleural space: Unremarkable. No pleural effusion. No pneumothorax. Heart/Mediastinum: The cardiomediastinal silhouette is fairly stable in appearance. An atrial appendage clip is again present. Bones/joints: Median sternotomy wires are again present. IMPRESSION: Stable radiographic appearance of the chest since 06/30/20, including masslike opacity in the right lung, for which dedicated workup is recommended if not already performed. Electronically signed by: Valente Nguyen On 07/10/2020 10:22:19 AM
[2020-07-10 10:25] LABS: BASO % 0.1 % (0.0-1.0); EOS # 0.1 10^3/uL (0.0-0.5); EOS % 0.4 % (0.0-3.0); HEMATOCRIT 43.5 % (42.0-52.0); LYMPH # 1.5 10^3/uL (1.5-5.0); LYMPH % 9.9 % (24.0-44.0); MEAN CORPUSCULAR HEMOGLOBIN 29.9 pg (27.0-33.0); MEAN CORPUSCULAR HGB CONC 32.2 g/dl (32.0-36.5); MEAN CORPUSCULAR VOLUME 92.9 fl (80.0-96.0); MONO # 0.7 10^3/uL (0.0-0.8); MONO % 4.6 % (0.0-5.0); NEUTROPHILS # 12.7 10^3/uL (1.5-8.5); NEUTROPHILS % 84.1 % (36.0-66.0); PLATELET COUNT, AUTOMATED 150 10^3/uL (150-450); RED BLOOD COUNT 4.68 10^6/uL (4.30-6.10); WHITE BLOOD COUNT 15.1 10^3/uL (4.0-10.0)
[2020-07-10 10:35] LABS: INR 0.94; PROTHROMBIN TIME 12.8 SECONDS (12.5-14.3)
[2020-07-10] MEDS ORDERED: ONDA8TAB10 PO (10:48)
[2020-07-10] MEDS ORDERED: PROC10TA4 PO (10:48)
[2020-07-10] MEDS ORDERED: OXYC1TAB23 PO (10:48)
[2020-07-10] MEDS ORDERED: PANT40TA29 PO (10:48)
[2020-07-10] MEDS ORDERED: NAME10TA PO (10:48)
[2020-07-10 11:53] LABS: ALBUMIN 2.9 GM/DL (3.2-5.2); BILIRUBIN,DIRECT 0.4 MG/DL (0.0-0.2); BILIRUBIN,TOTAL 1.2 MG/DL (0.2-1.0); THYROID STIMULATING HORMONE 0.745 uIU/ML (0.358-3.740); TOTAL PROTEIN 5.8 GM/DL (6.4-8.2)
[2020-07-10 13:13] VITALS: BP 112/55
--- NOTE | 2020-07-10 19:28 | ECGEPIP ---
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
--- NOTE | 2020-07-10 19:40 | ECGEPIP ---
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
[2020-07-29] MEDS ORDERED: ONDA8TAB10 PO (18:11)
== END 2020-07-10 13:16 | disposition home or self-care (01) ==
LOC: M ED 09:35
DX: I95.9 Hypotension, unspecified (principal); R00.0 Tachycardia, unspecified; I44.7 Left bundle-branch block, unspecified; I48.91 Unspecified atrial fibrillation; E11.9 Type 2 diabetes mellitus without complications; I10 Essential (primary) hypertension; E78.5 Hyperlipidemia, unspecified; Z95.828 Presence of other vascular implants and grafts; Z95.5 Presence of coronary angioplasty implant and graft; Z79.82 Long term (current) use of aspirin; Z79.899 Other long term (current) drug therapy

== ENCOUNTER → 2020-07-10 | Outpatient (CLI) | payer BC ==
[~2020-07-10] MED LIST changes: +ISOVUE-300 61% 50ML VIAL As Ordered ONE; +LIDOCAINE 1% MDV 20ML VIAL As Ordered ONE; +MIDAZOLAM INJ 2MG/2ML VIAL (J2250 PER 1MG) As Ordered ONE; +NS 1,000 ML IV ONE; +ceFAZolin 1GM VIAL (J0690 PER 500MG) As Ordered ONE; +ceFAZolin 2 GM/D5W 50 ML IV BAG (J0690 PER 500MG) As Ordered ONE; +diphenhydrAMINE 50MG/ML VIAL (J1200) As Ordered ONE; +fentaNYL 100 MCG/2 ML INJECTION (J3010) As Ordered ONE
[2020-07-10 09:30] LABS: INR 0.91; PROTHROMBIN TIME 12.5 SECONDS (12.5-14.3)
[2020-07-10 17:50] VITALS: BP 125/67
--- NOTE | 2020-07-11 10:18 | IRHP ---
[facility] IR Pre-Procedure H & P General Date of Service: Jul 10, 2020 Procedure: Same Day Surgery Interval History and Physical I have seen the patient and reviewed last H & P performed within 30 days. There is no significant interval change. History of Present Illness Chief Complaint The patient is a 65-year-old male admitted with a reason for visit of Lung Ca. PRE-PROCEDURE DIAGNOSIS:lung ca HEART: normal rate. LUNGS: normal breathing at rest. ASA Classification ASA Classification: III-Severe systemic dis. Mallampati Score: II NPO: Yes Problems with prior sedation: No Obstructive Sleep Apnea: Yes Plan moderate sedation Allergies Coded Allergies: No Known Allergies (Unverified , 08/24/18) Home Medications Scheduled Aspirin (Ecotrin), 81 MG PO DAILY, (Reported) Atorvastatin Calcium (Atorvastatin Calcium), 80 MG PO QHS, (Reported) Ezetimibe (Ezetimibe), 10 MG PO QHS, (Reported) Lisinopril (Lisinopril), 5 MG PO QHS, (Reported) Memantine HCl (Namenda), 1 TAB PO BID, (Reported) Metoprolol Succinate (Metoprolol Succinate), 12.5 MG PO BID, (Reported) Multivitamin (Multivitamins), 1 CAP PO DAILY, (Reported) Pantoprazole Sodium (Pantoprazole Sodium), 1 TAB PO DAILY, (Reported) Scheduled PRN Acetaminophen (Acetaminophen), 650 MG PO Q4H PRN for FEVER, (Reported) Ondansetron HCl (Ondansetron HCl), 1 TAB PO Q8HP PRN for NAUSEA, (Reported) Oxycodone HCl/Acetaminophen (Oxycodone-Acetaminophen 5-325), 1 TAB PO Q4-6HP PRN for pain, (Reported) Prochlorperazine Maleate (Prochlorperazine Maleate), 1 TAB PO Q8HP PRN for NAUSEA, (Reported) Discontinued Medications Ondansetron HCl (Ondansetron HCl), 8 MG PO Q8H PRN for NAUSEA Discontinued Reason: Pt states not taking Pantoprazole Sodium (Pantoprazole Sodium), 40 MG PO DAILY, (Reported) Discontinued Reason: Pt states not taking VS, I&O, 24H, Fishbone Vital Signs/I&O Vital Signs Date Time Temp Pulse Resp B/P (MAP) Pulse Ox O2 Delivery O2 Flow Rate FiO2 10/15/20 17:50 55 18 97 Room Air 07/10/20 15:44 3 07/10/20 08:47 96.6 I&O- Last 24 Hours up to 6 AM 07/11/20 06:00 Output Total 200 ml Balance -200 ml RIN VACA MD Jul 11, 2020 10:18
--- NOTE | 2020-07-11 10:19 | POST-OPPD ---
Postoperative Procedure Note Date Of Procedure: Jul 10, 2020 Time Of Procedure: 16:00 IR Ultrasound and fluoroscopy-guided port placement. IR Ultrasound of the neck. IR Moderate sedation. Clinical information: Lung cancer. Physician: Dr. Chatman. Procedure: The patient was advised of the benefits, risks, and alternatives of the procedure and informed consent was obtained. A time-out was performed with verification of the patient's name, MRN, site of procedure and type of procedure to be performed. The patient was positioned in the supine position on the angiographic table. The site was prepped and draped in the usual sterile fashion. Moderate sedation was performed by the physician including the presence of an independent trained RN who assisted and monitored the patient's level of consciousness and physiologic status. Following the administration of fentanyl and Versed , the physician spent 45 minutes of continuous face to face time with the patient. Ultrasound of the neck reveals a patent and compressible right internal jugular vein. A intranet support radiograph reveals median sternotomy wires. The neck and anterior chest wall were anesthetized with lidocaine. The right internal jugular vein was accessed using a microintroducer needle under ultrasound guidance, via a lateral approach. An 018 wire was advanced into the superior vena cava, the needle was removed and a microsheath was placed. An Amplatz wire was then passed into the inferior vena cava. An incision at the internal jugular vein access site and anterior chest wall were made using a scalpel. An incision was made at the anterior chest wall. A small pocket was created using a combination of blunt and sharp dissection. A tunneling device was then used to pass the catheter from the pocket to the neck puncture site. An 8- Taiwanese Ang[employer] Smart power port was then positioned in the pocket. The catheter was then measured and cut. The introducer sheath was exchanged for a peel-away sheath. The catheter was passed through the peel-away sheath into the internal jugular vein and the peel-away sheath was removed. The port tip was positioned at the cavoatrial junction. The port was then accessed with a Bonilla needle. The port flushes and aspirates well. The puncture site in the neck was closed. The chest wall incision was then closed with 2-0 Vicryl and 4-0 Monocryl. Glue and Steri- Strips were applied. A sterile dressing was then applied. The patient tolerated the procedure well and was returned to the PRU in stable condition. Estimated blood loss: <5 ml. Complications: None. Conclusion: 1. Successful placement of an 8-Taiwanese Angio dynamics Smart power port via the right internal jugular vein. The port is ready for immediate use. 2. Patient to follow up in IR clinic in 2 weeks. Thank you for this referral. RIN CHATMAN MD Jul 11, 2020 10:19
== END ==
LOC: M IRPRO 08:37
PROVIDERS: ATTEND Radiology Diagnostic Radiology
DX: C34.90 Malignant neoplasm of unspecified part of unspecified bronchus or lung (principal); Z79.82 Long term (current) use of aspirin; Z79.899 Other long term (current) drug therapy
CPT/HCPCS: 36561; 85610; 99152; 99153; C1769; C1788; C1887; C1894; J0690; J1200; J1642; J1644; J2250; J3010; Q9967

== ENCOUNTER 2020-07-14 13:42 | Outpatient (RCR) | payer BC ==
--- NOTE | 2020-07-04 15:03 | MEDONCPDOC ---
Med Onc Office Note.txt Date of Visit Jul 04, 2020 Office Note Spoke to patient after radiation today. He mentioned that he has pain in the distal left femur. This correlates with a metastasis seen on his bone scan. We agreed to proceed with simulation early next week. I will give him 8 Gy in a single fraction to this lesion unless on simulation there is significant cortical disruption or impending fracture evident. In that case I would recommend a more protracted regimen. He agreed to proceed. Tolerating WBRT well thus far, tapering decadron without recrudescent neuro symptoms. Namenda not causing any side effects thus far. CC TO: Primary Care Provider: Priscila Hassan DO Referring Provider: HIEU KING MD Jul 04, 2020 15:03
[~2020-07-14 13:42] MED LIST changes: +NAME10TA PO; +OXYC1TAB23 PO
[2020-07-15] MEDS ORDERED: CVS10CAP8 PO (08:15)
[2020-07-15] MEDS ORDERED: PROC10TA4 PO (08:40)
[2020-07-15] MEDS ORDERED: ONDA8TAB10 PO (16:22)
[2020-07-21] MEDS ORDERED: LOMO2.5T PO (09:48)
[2020-07-23] MEDS ORDERED: PANT-23 PO (22:54)
[2020-07-23] MEDS ORDERED: VITMTA PO (22:54)
[2020-07-23] MEDS ORDERED: NAME10TA PO (22:54)
[2020-07-23] MEDS ORDERED: TEMA15CA2 PO (22:54)
[2020-07-23] MEDS ORDERED: FURO40TA2 PO (22:55)
[2020-07-29] MEDS ORDERED: ONDA8TAB10 PO (18:11)
== END 2020-07-24 ==
LOC: M ONCR 13:42
PROVIDERS: ATTEND General Practice
DX: C79.51 Secondary malignant neoplasm of bone (principal)

== ENCOUNTER → 2020-07-18 | Outpatient (CLI) | payer BC ==
[~2020-07-18] MED LIST changes: +CVS10CAP8 PO; +LOMO2.5T PO; +TEMA15CA2 PO; +VITMTA PO
[2020-07-18 10:39] LABS: BASO % 0.1 % (0.0-1.0); HEMATOCRIT 39.6 % (42.0-52.0); HEMOGLOBIN 12.5 g/dl (13.5-17.5); LYMPH # 0.7 10^3/uL (1.5-5.0); LYMPH % 4.7 % (24.0-44.0); MEAN CORPUSCULAR HEMOGLOBIN 29.5 pg (27.0-33.0); MEAN CORPUSCULAR HGB CONC 31.6 g/dl (32.0-36.5); MEAN CORPUSCULAR VOLUME 93.4 fl (80.0-96.0); MONO # 0.2 10^3/uL (0.0-0.8); MONO % 1.2 % (0.0-5.0); NEUTROPHILS # 13.2 10^3/uL (1.5-8.5); NEUTROPHILS % 92.7 % (36.0-66.0); PLATELET COUNT, AUTOMATED 176 10^3/uL (150-450); RED BLOOD COUNT 4.24 10^6/uL (4.30-6.10); WHITE BLOOD COUNT 14.2 10^3/uL (4.0-10.0)
[2020-07-18 10:54] LABS: ALBUMIN 3.1 GM/DL (3.2-5.2); ALT/SGPT 29 U/L (12-78); BILIRUBIN,TOTAL 0.9 MG/DL (0.2-1.0); BLOOD UREA NITROGEN 45 MG/DL (7-18); CARBON DIOXIDE LEVEL 19 MEQ/L (21-32); CHLORIDE LEVEL 108 MEQ/L (98-107); CHOLESTEROL LEVEL 160 MG/DL (<200); CHOLESTEROL RISK RATIO 3.404 (<5); CREATININE FOR GFR 1.24 MG/DL (0.70-1.30); FREE T4 0.91 NG/DL (0.76-1.46); GLOMERULAR FILTRATION RATE > 60.0 (>49); GLUCOSE, FASTING 138 MG/DL (70-100); HDL CHOLESTEROL 47 MG/DL (>40); LDL CHOLESTEROL 87 MG/DL (<100); NON-HDL-C 113 MG/DL; POTASSIUM SERUM 4.5 MEQ/L (3.5-5.1); SODIUM LEVEL 135 MEQ/L (136-145); THYROID STIMULATING HORMONE 0.629 uIU/ML (0.358-3.740); TRIGLYCERIDES LEVEL 132 MG/DL (<150)
[2020-07-18 11:16] LABS: HEMOGLOBIN A1c 6.8 %
[2020-07-19 21:06] LABS: PSA TOTAL 0.4 ng/mL (0.0-4.0)
== END ==
LOC: M PLALAB 08:30
PROVIDERS: ATTEND Physician Assistant
DX: I25.10 Atherosclerotic heart disease of native coronary artery without angina pectoris (principal); E11.9 Type 2 diabetes mellitus without complications; Z12.5 Encounter for screening for malignant neoplasm of prostate

== ENCOUNTER 2020-07-23 20:36 | Inpatient (IN) | payer BC ==
[~2020-07-23] VITALS: Ht 175.3 cm; Wt 122.0 kg
[~2020-07-23 20:36] MED LIST changes: +SODIUM CHLORIDE 0.9% INJ 10 ML SYR IV SCH; -TEMA15CA2 PO; -VITMTA PO
[2020-07-23] MEDS ORDERED: METOPROLOL 5 MG/5 ML VIAL As Ordered ONE (20:48)
[2020-07-23 20:50] VITALS: BP 130/79
[2020-07-23] MEDS: METOPROLOL 5 MG/5 ML VIAL IV SCH ×3 (20:50→21:10)
[2020-07-23] MEDS ORDERED: NS 500 ML IV ONE ×2 (21:00)
[2020-07-23] MEDS ORDERED: AMIODARONE 150MG/3ML INJ (J0282) IVP STA (21:05)
[2020-07-23 21:15] LABS: HEMATOCRIT 33.7 % (42.0-52.0); HEMOGLOBIN 10.7 g/dl (13.5-17.5); LYMPH # 0.6 10^3/uL (1.5-5.0); LYMPH % 90.3 % (24.0-44.0); MEAN CORPUSCULAR HEMOGLOBIN 29.6 pg (27.0-33.0); MEAN CORPUSCULAR HGB CONC 31.8 g/dl (32.0-36.5); MEAN CORPUSCULAR VOLUME 93.4 fl (80.0-96.0); MONO % 6.5 % (0.0-5.0); NEUTROPHILS % 3.2 % (36.0-66.0); RED BLOOD COUNT 3.61 10^6/uL (4.30-6.10)
[2020-07-23 21:26] LABS: INR 1.8; PROTHROMBIN TIME 21.3 SECONDS (12.5-14.3)
[2020-07-23 21:27] LABS: PARTIAL THROMBOPLASTIN TIME 30.3 SECONDS (24.2-38.5)
[2020-07-23] MEDS ORDERED: DIGOXIN INJ 0.5 MG/2 ML AMP (J1160) IV STA (21:27)
[2020-07-23] MEDS ORDERED: AMIODARONE HCL 360 MG in IV 1 EA IV SCH (21:30)
[2020-07-23 21:31] LABS: PLATELET COUNT, AUTOMATED 68 10^3/uL (150-450); WHITE BLOOD COUNT 0.6 10^3/uL (4.0-10.0)
--- NOTE | 2020-07-23 21:34 | REPVR ---
PROCEDURE INFORMATION: Exam: XR Chest, 1 View Exam date and time: 07/23/2020 9:18 PM Age: 65 years old Clinical indication: Other: Chest pain; Additional info: Chest pain TECHNIQUE: Imaging protocol: XR of the chest Views: 1 view. COMPARISON: CR PORTABLE CHEST X-RAY 07/10/2020 9:53 AM FINDINGS: Tunneled right IJ vascular catheter has been placed into the SVC. No apparent complication. Mass lateral right suprahilar is similar to the prior radiograph. Confluent opacity at the medial right lung base measuring 7 x 7 cm is new and may represent pneumonia. Retrocardiac opacity and left basilar peripheral opacity are unchanged. Median sternotomy wires are present. Trachea is attenuated by right-sided mediastinal lymphadenopathy IMPRESSION: Placement of tunneled right IJ vascular catheter without complication. New opacity at the medial right lung base which may represent pneumonia . A mass developing in the short interim is unlikely. Mediastinal lymphadenopathy and stable lateral right apical and lateral left basilar abnormalities Electronically signed by: Blaise Hunt On 07/23/2020 21:34:15 PM
--- NOTE | 2020-07-23 21:43 | REPVR ---
PROCEDURE INFORMATION: Exam: US Duplex Left Lower Extremity Veins, Limited Exam date and time: 07/23/2020 9:37 PM Age: 65 years old Clinical indication: Swelling (edema) of limb; Lower extremity, left; Additional info: Left leg swelling TECHNIQUE: Imaging protocol: Real-time Duplex ultrasound of the Left Lower Extremity with 2-D young scale, color Doppler flow and spectral waveform analysis with image documentation. Limited exam focused on the left lower extremity veins. COMPARISON: No relevant prior studies available. FINDINGS: Left deep veins: Common femoral, femoral, proximal profunda femoral and popliteal veins are patent without thrombus. Normal Doppler waveforms. Normal compressibility and/or augmentation response. Left superficial veins: Saphenofemoral junction is patent without thrombus. Soft tissues: No abnormal focal fluid collection. IMPRESSION: No evidence of deep vein thrombosis. Electronically signed by: Blaise Hunt On 07/23/2020 21:42:56 PM
[2020-07-23] MEDS ORDERED: CEFEPIME HCL 2 GM in D5W MINI-BAG PLUS 50 ML IV SCH (21:45)
[2020-07-23] MEDS ORDERED: VANCOMYCIN HCL 1,000 MG, VIAL MATE ADAPTER 1 EACH in D5W 250 ML IV SCH (21:45)
[2020-07-23 21:46] LABS: ALBUMIN 2.9 GM/DL (3.2-5.2); BILIRUBIN,DIRECT 1.3 MG/DL (0.0-0.2); BILIRUBIN,TOTAL 1.9 MG/DL (0.2-1.0); CALCIUM LEVEL 6.3 MG/DL (8.8-10.2); CK-MB VALUE MASS 2.7 NG/ML (<3.6); CREATININE FOR GFR 2.15 MG/DL (0.70-1.30); FREE T4 1.21 NG/DL (0.76-1.46); GLOMERULAR FILTRATION RATE 33.2 (>49); MB/CK RELATIVE INDEX 3.7 (< OR =4); POTASSIUM SERUM 4.8 MEQ/L (3.5-5.1); THYROID STIMULATING HORMONE 0.848 uIU/ML (0.358-3.740); TOTAL PROTEIN 5.7 GM/DL (6.4-8.2); TROPONIN I 0.13 NG/ML (< 0.10)
[2020-07-23] MEDS ORDERED: CEFEPIME HCL 2 GM in D5W MINI-BAG PLUS 50 ML IV ONE (22:00)
[2020-07-23] MEDS ORDERED: NOREPINEPHRINE BITARTRATE 8 MG in D5W 492 ML IV SCH (22:45)
[2020-07-23] MEDS ORDERED: NOREPINEPHRINE BITARTRATE 8 MG in D5W 500 ML IV SCH (22:50)
[2020-07-23] MEDS ORDERED: TEMA15CA2 PO (22:54)
[2020-07-23] MEDS ORDERED: VITMTA PO (22:54)
[2020-07-23] MEDS ORDERED: PANT-23 PO (22:54)
[2020-07-23] MEDS ORDERED: NAME10TA PO (22:54)
[2020-07-23] MEDS ORDERED: FURO40TA2 PO (22:55)
[2020-07-23] MEDS ORDERED: ACETAMINOPHEN TAB 650MG DOSE (2X325MG) PO PRN (23:00)
[2020-07-23] MEDS ORDERED: MAALOX 30 ML SUSP *UDC PO PRN (23:00)
[2020-07-23] MEDS ORDERED: MOM 30ML SUSPENSION UDC PO PRN (23:00)
[2020-07-23] MEDS ORDERED: ENOXAPARIN 100MG/1ML SYRINGE (J1650 PER 10MG) SC SCH (23:00)
--- NOTE | 2020-07-23 23:10 | HPEPDOC ---
[facility] Medical History & Physical Date of Admission Jul 23, 2020 Date of Service: Jul 23, 2020 Primary Care Physician: SAJAN DOWNEY DO Attending Physician: DANNY GAONA MD History and Physical TIME OF SERVICE: 1120pm CHIEF COMPLAINT: dyspnea HISTORY OF PRESENT ILLNESS: The majority of the history was obtained from the patient's son & daughter, the patient was too short of breath to talk. This 65 yr old male was last admitted on June 22 and discharged on Jul 01. During that admission he was diagnosed with lung cancer w mets to the brain, and bones. His last chemo session was on ; he also had radiation therapy. His code status is DNR/DNI. This afternoon at about 2PM his son in law noticed that the patient was short of breath, confused c/o feeling cold and had left leg swelling . Prior to that the patient' had not had any c/o. Yesterday he ate well and attended 2 visits at various doctor's offices. When EMS arrived he was found to have a temp of 101. 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 HOME MEDICATIONS: Please see below. PHYSICAL EXAMINATION: Vital Signs Date Time Temp Pulse Resp B/P (MAP) Pulse Ox O2 Delivery O2 Flow Rate FiO2 07/23/20 20:49 98.4 197 20 130/79 (96) 93 Room Air 07/23/20 20:52 15.0 07/23/20 22:05 86 GEN: well-nourished / appears toxic / has occasional chills INTEGUMENT: has generalized palor HEENT: non-rebreather mask in place CVS: tachycardic/ radial pulses difficult to palpate LUNGS: unable able to speak full sentences without stopping to take a breath / has coarse expiratory rhonchi / occasionally coughing ABDOMEN: Contour ( obese ) MSK/EXTREMITIES: NCAT NEURO: CN 2-12 are grossly intact / speech is not dysarthric PSYCH: alert / able to understand and follow simple commands LABORATORY DATA: 07/23/20 21:04 07/23/20 21:04: Immature Granulocyte % (Auto) 0.0, Neutrophils (%) (Auto) 3.2L, Lymphocytes (%) (Auto) 90.3H, Monocytes (%) (Auto) 6.5H, Eosinophils (%) (Auto) 0.0, Basophils (%) (Auto) 0.0, Neutrophils # (Auto) 0.0L, Lymphocytes # (Auto) 0.6L, Monocytes # (Auto) 0.0, Eosinophils # (Auto) 0.0, Basophils # (Auto) 0.0, Nucleated Red Blood Cells % (auto) 0.0, Immature Platelet Fraction 3.6, Anion Gap 12, Glomerular Filtration Rate 33.2L, Calcium Level 6.3L, Total Bilirubin 1.9H, Direct Bilirubin 1.3H, Aspartate Amino Transf (AST/SGOT) 245H, Alanine Aminotransferase (ALT/SGPT) 410H, Alkaline Phosphatase 231H, Total Creatine Kinase 73, Creatine Kinase MB 2.7, Creatine Kinase MB Relative Index 3.70, Troponin I 0.13H, IA-Otn-A-Type Natriuretic Peptide 60493L, Total Protein 5.7L, Albumin 2.9L, Albumin/Globulin Ratio 1.0, Lipase 138, Thyroid Stimulating Hormone (TSH) 0.848, Free Thyroxine 1.21 07/23/20 21:05: Prothrombin Time 21.3H, Prothromb Time International Ratio 1.80, Activated Partial Thromboplast Time 30.3 07/23/20 21:39: Lactic Acid Level 8.2*H IMAGING: Chest xray "Placement of tunneled right IJ vascular catheter without complication. New opacity at the medial right lung base which may represent pneumonia . A mass developing in the short interim is unlikely. Mediastinal lymphadenopathy and stable lateral right apical and lateral left basilar abnormalities." US LLE "No evidence of deep vein thrombosis." MICROBIOLOGY: Blood cx pending.... ASSESSMENT: is a 65 yr old w a hx of right lung cancer with metastases to the brain and bone, HFpEF, CAD/CABG, atrial fibrillation, HTN, and class II obesity who presented w dyspnea, fever, chills and will be admitted for management of MODS, pneumonia, & rapid rapid A. fib. PLAN: 1. Multiple Organ Dysfunction Syndrome SIRS criteria: Temp >101 / HR >90 / WBC <4 / RR > 20 As a result of the sepsis he also has ROLAND, shock liver and pancytopenia His lactic acid is 8.2 Qsofa score =3 points = high risk NEWS 2 SCORE = 15 points = high risk = requires continuous monitoring He received abx and 1000ml of IVF in the ER for the hypotension bc of his hx of HFrEF, thereafter his BP didn't improve so he was started on levophed. He is DNR/DNI I informed the children about his poor prognosis, explained that he is in MODs and that he may deteriorate overnight. Plan: admit to ICU bc of high NEWS2 score / telemetry / trend lactic acid, f/u Coags w fibrinogen to r/o DIC / c/w Cefepime and Vanc pending, pancx results / f/u Acetaminophen PRN for fever / unable to give more fluid bc of his low EF therefore started levophed w a target MAP at of least 65 to 70 / f/u Is and Os with target UOP of at least 0.5 ml/kg/H / f/u FSBS w target serum glucose 140- 180 while acutely ill 2. Metabolic Encephalopathy 2/2 PNA and possibly hypoperfusion of the brain due to hypotension and rapid a fib Plan: frequent neurochecks / treat infection / hold Restoril & avoid sedating medications / hold Lomotil pending serum ammonia levels bc he also has transam initis 3.Right Middle Lobe Pneumonia He is O2 sats dropped as low as 77% despite being on 15L via non-rebreather mask PORT/PSI Score to predict risk of mortality in pt w CAP = 193 points = Class V risk /high risk Chest xray & VBG reviewed Plan: continuous pulse ox & c/w O2/ f/u & MRSA/ cefepime and vancomycin pending MRSA, sputum cx, blood cx, strep pneumo, legionella results 4. Rapid Afib Likely 2/2 PNA Trop and BNP slightly elevated EKG showed rapid afib [id number] score = 4 points = AC indicated In the ER he was found to be in rapid afib w a HR in the 200s and was given metoprolol, but his BP dropped; after consultation with Dr.Roc Toño Bowman ordered amiodarone and digoxin. Per Toño Smith recommended c/w digoxin Q6H w amiodarone if needed. Plan: telemetry / c/w digoxin Q6H / will add amiodarone if needed / unable to start lovenox or NOAC bc of acute anemia and thrombocytopenia 5.Neutropenic Fever ANC is 0 TMax 101 MASCC Febrile Neutropenia Risk to identify patients at low risk for poor outcome with febrile neutropenia = 11 points = not low risk = in-pt admission recommended Plan: neutropenic precautions / c/w abx as above / the day time team / Neuopogen 6. Anemia and Thrombocytopenia 2/2 sepsis Plan: treat infection & f/u CBC 7. ROLAND Likely 2/2 sepsis and or cardiorenal syndrome Baseline Cr 1.24, current Cr 2.15 GFR dropped from > 60 to 33.2 CK 73 Plan: placed malloy for Is/Os / no additional fluid to avoid fluid overload / f/u ulytes for FENa or FEUrea / f/u renal US 8. Shock liver 2/2 sepsis Plan: treat sepsis & trend LFTs 9. Elevated trops Likely type 2 NSTEMI 2/2 tachycardia and possibly reduced renal clearance of troponin in the setting of ROLAND He denied having any pain Plan: telemetry / trend trops 10. Acute Systolic CHF (EF 35%) CHF exacerbation likely 2/2 pneumonia He currently has NYHF Class IV symptoms TSH wnl Trop and BNP are elevated Plan: elevate head of bed to 30 degrees/ strict Is/OS, daily weights / not restricting fluids bc of hypotension / salt restriction to 2G / BNP should be measured upon admission and before discharge for prognostic purposes because high levels and levels that dont trend down are linked with increased mortality and rehospitalization / no lasix until BP improves / based on the reconciled med s he is not on an ACEI, ARB, BB, K sparing diuretic 11. LLE swelling US neg for DVT Plan: elevate leg 12. 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 CAD / NSTEMI / s/p 4 vessel CABG Plan: ASA & statin 14. Hx of Chronic Hypertension Plan: lasix on hold bc of hypotension 15. Chronic Diarrhea Plan: hold loperamide 16. Class 2 obesity This complicates his care He has a remote hx of DM DVT PROPHYLAXIS: SCDs, no AC bc of thrombocytopenia and anemia DISPOSITION: pending clinical course will need at least 2 midnight's stay PROGNOSIS: guarded LATE ENTRY 151AM #MODs is more alert but his MAP is in the mid 60s despite max levophed Plan: add Epinephrine #Hypophosphatemia Plan: replete phosphorus LATE ENTRY 325AM #Type 2 NSTEMI Despite trops trending upwards we are unable to start a Heparin drip bc of his anemia and thrombocytopenia Plan:continue to trend trops / c/w ASA / will reach out to Cardio Home Medications Scheduled Aspirin (Ecotrin) 81 Mg Tablet.dr, 81 MG PO DAILY Atorvastatin Calcium (Atorvastatin Calcium) 80 Mg Tablet, 80 MG PO QHS Ezetimibe (Ezetimibe) 10 Mg Tablet, 10 MG PO QHS Memantine HCl (Namenda) 10 Mg Tablet, 10 MG PO BID Multivitamins (Thera M Plus Tablet) 1 Each Tablet, 1 TAB PO DAILY Pantoprazole Sodium (Pantoprazole Sodium) 40 Mg Tablet.dr, 40 MG PO DAILY Temazepam (Temazepam) 15 Mg Capsule, 15 MG PO QHS Scheduled PRN Diphenoxylate HCl/Atropine (Lomotil 2.5-0.025 mg Tablet) 1 Each Tablet, 1 TAB PO BIDP PRN for diarrhea Furosemide (Furosemide) 40 Mg Tablet, 40 MG PO DAILY PRN for EDEMA Ondansetron HCl (Ondansetron HCl) 8 Mg Tablet, 1 TAB PO Q8HP PRN for NAUSEA Prochlorperazine Maleate (Prochlorperazine Maleate) 10 Mg Tablet, 1 TAB PO Q8HP PRN for NAUSEA Take 1 tablet po q 6 hours prn nausea unresponsive to Ondansatron Allergies Coded Allergies: No Known Allergies (Unverified , 08/24/18) A-FIB/CHADSVASC A-FIB History Current/History of A-Fib/PAF?: Yes Current PO Anticoag Therapy: No Treatment Other reason anticoagulant not: acute anemia and acute thrombocytopenia at high risk for bleeding DANNY GAONA MD Jul 23, 2020 23:10
[2020-07-23 23:41] LABS: PHOSPHORUS LEVEL 1.5 MG/DL (2.5-4.9)
[2020-07-24] VITALS (37 sets, daily range): BP systolic 57–173; BP diastolic 32–131
[2020-07-24 00:11] LABS: VENOUS HCO3 11.5 MEQ/L (23.0-27.0); VENOUS O2 SATURATION 94.6 % (60.0-80.0); VENOUS PARTIAL PRESSURE CO2 41.3 mmHg (38.0-50.0); VENOUS PARTIAL PRESSURE O2 96.6 mmHg (30.0-50.0); VENOUS PH 7.062 UNITS (7.330-7.430); VENOUS STANDARD HCO3 10.9 MEQ/L; VENOUS TOTAL CO2 12.8 MEQ/L (24.0-28.0)
[2020-07-24] MEDS ORDERED: NOREPINEPHRINE BITARTRATE 8 MG in D5W 492 ML IV SCH ×2 (00:45→01:00)
[2020-07-24] MEDS: NOREPINEPHRINE BITARTRATE 8 MG in D5W 492 ML IV SCH ×3 (00:52→15:20)
[2020-07-24] MEDS ORDERED: VANCOMYCIN HCL 1,000 MG, VIAL MATE ADAPTER 1 EACH in D5W 250 ML IV ONE ×5 (01:00→03:00)
[2020-07-24 01:05] LABS: OSMOLALITY URINE 645 MOSM/KG (500-800)
[2020-07-24 01:13] LABS: APPEARANCE, URINE HAZY (CLEAR); BACTERIA, URINE AUTO NEGATIVE (NEGATIVE); BILIRUBIN, URINE AUTO NEGATIVE (NEGATIVE); BLOOD, URINE BLOOD NEGATIVE (NEGATIVE); COLOR, URINE AMBER (YELLOW); GLUCOSE, URINE (UA) AUTO NEGATIVE (NEGATIVE); KETONE, URINE AUTO NEGATIVE (NEGATIVE); LEUKOCYTE ESTERASE, URINE AUTO NEGATIVE (NEGATIVE); NITRITE, URINE AUTO NEGATIVE (NEGATIVE); PROTEIN, URINE AUTO 2+ mg/dL (NEGATIVE); RBC, URINE AUTO 1 /HPF (0-3); SPECIFIC GRAVITY URINE AUTO 1.019 (1.002-1.035); SQUAMOUS EPITHELIAL CELL UR AU 0 /HPF (0-6); WBC, URINE AUTO 3 /HPF (0-3)
[2020-07-24 01:14] LABS: POTASSIUM RANDOM URINE 23.3 MEQ/L; SODIUM,RANDOM URINE < 10 MEQ/L
[2020-07-24] MEDS ORDERED: LOMOTIL 2.5MG/0.025MG TABLET PO PRN (01:30)
[2020-07-24] MEDS ORDERED: ONDANSETRON 4 MG TAB PO PRN (01:30)
[2020-07-24] MEDS ORDERED: PROCHLORPERAZINE 5 MG TAB (S0183) PO PRN (01:30)
[2020-07-24] MEDS ORDERED: SODIUM PHOSPHATE INJ 20 MMOL in D5W 250 ML IV ONE (02:00)
[2020-07-24] MEDS ORDERED: FILGRASTIM 300 MCG/0.5 ML SYRINGE (J1442 PER 1MCG) SC SCH (02:00)
[2020-07-24] MEDS ORDERED: EPINEPHrine HCL INJ 1 MG in D5W 240 ML IV SCH (02:30)
[2020-07-24] MEDS: DIGOXIN INJ 0.5 MG/2 ML AMP (J1160) IV SCH ×3 (02:50→15:18)
[2020-07-24 03:23] LABS: CK-MB VALUE MASS 9.8 NG/ML (<3.6); MB/CK RELATIVE INDEX 3.84 (< OR =4); TROPONIN I 1.51 NG/ML (< 0.10)
[2020-07-24 05:05] LABS: HEMATOCRIT 32.1 % (42.0-52.0); MEAN CORPUSCULAR HEMOGLOBIN 29.1 pg (27.0-33.0); MEAN CORPUSCULAR HGB CONC 31.2 g/dl (32.0-36.5); MEAN CORPUSCULAR VOLUME 93.3 fl (80.0-96.0); RED BLOOD COUNT 3.44 10^6/uL (4.30-6.10)
[2020-07-24 05:08] LABS: WHITE BLOOD COUNT 0.7 10^3/uL (4.0-10.0)
[2020-07-24 05:09] LABS: PLATELET COUNT, AUTOMATED 47 10^3/uL (150-450)
[2020-07-24 05:31] LABS: INR 2.16; PROTHROMBIN TIME 24.6 SECONDS (12.5-14.3)
[2020-07-24 05:57] LABS: ALBUMIN 2.7 GM/DL (3.2-5.2); BILIRUBIN,TOTAL 2.4 MG/DL (0.2-1.0); CALCIUM LEVEL 5.8 MG/DL (8.8-10.2); CREATININE FOR GFR 2.79 MG/DL (0.70-1.30); GLOMERULAR FILTRATION RATE 24.6 (>49); MAGNESIUM LEVEL 1.8 MG/DL (1.8-2.4); POTASSIUM SERUM 4.3 MEQ/L (3.5-5.1); TOTAL PROTEIN 5.2 GM/DL (6.4-8.2)
[2020-07-24] MEDS ORDERED: CALCIUM GLUCONATE 1,000 MG in D5W MINI-BAG PLUS 100 ML IV ONE (07:00)
[2020-07-24 07:33] LABS: ABG BASE EXCESS -15.7 (-2.0-2.0); ABG HCO3 10.6 MEQ/L (22.0-26.0); ABG O2 SATURATION 95.5 % (95.0-99.0); ABG PARTIAL PRESSURE CO2 27.2 mmHg (35.0-45.0); ABG STANDARD HCO3 12.4 MEQ/L (22.0-26.0); ABG TOTAL CO2 11.5 MEQ/L (23.0-31.0)
[2020-07-24] MEDS ORDERED: PIPERACILLIN/TAZOBACTAM SOD 3.375 GM in D5W MINI-BAG PLUS 50 ML IV SCH (08:00)
--- NOTE | 2020-07-24 08:08 | ECGEPIP ---
[facility] - ED Test Date: 2020-07-23 Pat Name: IFTIKHAR DUMONT Department: Room: [place] [address] Gender: Male R Developer: landy : 1955 Requested By: SAL SIERRA Order Number: [id number] Reading MD: Vicky Farley Measurements Intervals [place] Rate: 158 P: [place]: 0 QRS: 0 QRSD: 141 T: 175 QT: 295 QTc: 479 Interpretive Statements ATRIAL FIBRILLATION WITH RAPID VENTRICULAR RESPONSE LEFT BUNDLE BRANCH BLOCK low voltage limb Electronically Signed on 07-24-2020 8:07:27 EDT by iVcky Farley
[2020-07-24 08:35] LABS: CK-MB VALUE MASS 17.2 NG/ML (<3.6); MB/CK RELATIVE INDEX 3.57 (< OR =4); TROPONIN I 2.38 NG/ML (< 0.10)
[2020-07-24] MEDS ORDERED: AMIODARONE 200 MG TAB (PACERONE) PO SCH (09:00)
[2020-07-24] MEDS ORDERED: MEMANTINE 5MG TABLET (NAMENDA) PO SCH (09:00)
[2020-07-24] MEDS ORDERED: PANTOPRAZOLE 40MG TAB (PROTONIX) PO SCH (09:00)
[2020-07-24] MEDS ORDERED: SODIUM CHLORIDE 0.9% INJ 10 ML SYR IV SCH (09:00)
[2020-07-24] MEDS ORDERED: ASPIRIN 81 MG ENTERIC TAB PO SCH (09:00)
[2020-07-24] MEDS: IPRATROPIUM 0.5MG/ALBUTEROL 2.5MG INH SOL UD 3ML (DUONEB) NEB SCH ×2 (09:24→13:22)
[2020-07-24] MEDS ORDERED: VANCOMYCIN HCL 750 MG, VIAL MATE ADAPTER 1 EACH in D5W 250 ML IV SCH (09:30)
--- NOTE | 2020-07-24 09:51 | IPNPDOC ---
Text Note Date of Service The patient was seen on 07/24/20. NOTE Subjective:. Patient doing better in the morning. Patient alert and awake. 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 fib. Severe Sepsis/neutropenic fever Secondary to right middle lobe pneumonia and neutropenic fever Patient recently received chemotherapy for stage IV lung cancer On the admission ANC is 0, patient was febrile Continue cefepime IV, will re start vancomycin Continue high flow oxygen Continue to monitor blood gas Metabolic encephalopathy Secondary to sepsis and acute hypoxemic respiratory failure Resolved Acute hypoxemic respiratory failure Secondary to sepsis and HCAP pneumonia, patient developed acute respiratory acidosis Patient continues to have high oxygen requirements HCAP, right middle lobe pneumonia See above Rapid A. fib New onset of atrial fibrillation In the ER he was found to be in rapid afib w a HR in the 200s and was given metoprolol, but his BP dropped; after consultation with Dr.Roc Toño Bowman ordered amiodarone and digoxin. Per Toño Smith recommended c/w digoxin Q6H w amiodarone if needed Oral anticoagulation on hold due to thrombocytopenia Pancytopenia Secondary to chemotherapy and sepsis See above Elevated troponin/CAD / NSTEMI / s/p 4 vessel CABG Differential diagnosis includes demand ischemia versus non-STEMI. 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
[2020-07-24] MEDS ORDERED: VANCOMYCIN INTERMITTENT/PULSE DOSING BY CLINICAL PHARMACIST PER DOSING PROTOCOL XX SCH (10:00)
[2020-07-24 10:20] LABS: HEMATOCRIT 33.5 % (42.0-52.0); HEMOGLOBIN 10.5 g/dl (13.5-17.5); LYMPH # 0.6 10^3/uL (1.5-5.0); LYMPH % 74.4 % (24.0-44.0); MEAN CORPUSCULAR HEMOGLOBIN 29.2 pg (27.0-33.0); MEAN CORPUSCULAR HGB CONC 31.3 g/dl (32.0-36.5); MEAN CORPUSCULAR VOLUME 93.3 fl (80.0-96.0); MONO # 0.1 10^3/uL (0.0-0.8); NEUTROPHILS % 16.6 % (36.0-66.0); RED BLOOD COUNT 3.59 10^6/uL (4.30-6.10)
[2020-07-24 10:22] LABS: NEUTROPHILS # 0.1 10^3/uL (1.5-8.5); PLATELET COUNT, AUTOMATED 40 10^3/uL (150-450); WHITE BLOOD COUNT 0.8 10^3/uL (4.0-10.0)
[2020-07-24 10:57] LABS: PTH INTACT 492.7 PG/ML (18.5-88.0); TOTAL 25(OH) VITAMIN D 21.5 NG/ML (30.0-100.0)
[2020-07-24] MEDS ORDERED: VANCOMYCIN HCL 1,000 MG, VIAL MATE ADAPTER 1 EACH in D5W 250 ML IV SCH (11:00)
[2020-07-24] MEDS ORDERED: CEFEPIME HCL 2 GM in D5W 50 ML IV SCH (11:00)
[2020-07-24 11:05] LABS: ALBUMIN 2.9 GM/DL (3.2-5.2); BILIRUBIN,TOTAL 3.2 MG/DL (0.2-1.0); CALCIUM LEVEL 6.4 MG/DL (8.8-10.2); CREATININE FOR GFR 3.02 MG/DL (0.70-1.30); GLOMERULAR FILTRATION RATE 22.4 (>49); MAGNESIUM LEVEL 1.8 MG/DL (1.8-2.4); POTASSIUM SERUM 4.6 MEQ/L (3.5-5.1); TOTAL PROTEIN 5.5 GM/DL (6.4-8.2)
--- NOTE | 2020-07-24 11:17 | CCN ---
DATE: 07/24/2020 SUBJECTIVE: The patient is a 65-year-old male seen in the intensive care unit with acute hypoxic respiratory failure. He has a recent history of large cell carcinoma of the right lung biopsied 07/02. He has received radiation therapy for brain metastasis and his first dose of chemotherapy was given on 07/15 (carboplatin 521 mg). His symptom onset was abrupt and progressive over 12 hours. He presented to the emergency department and since admission, he has been treated for atrial fibrillation with rapid ventricular response. Pressors were acquired for decreased blood pressure. On review of the record, there is a past medical history of coronary artery disease. He suffered a non-ST segment myocardial infarction in February 2019 and required a four-vessel coronary artery bypass graft placement. His ejection fraction at baseline is 305. He has obstructive lung disease actively smoking on average two to three packs of cigarettes per day for the past 40 years. OBJECTIVE: GENERAL APPEARANCE: At bedside, he is ill-appearing and tachypenic, able to answer questions with brief answers. VITAL SIGNS: Temperature 98.6 down from 100.4, pulse rate 96, respirations 28, blood pressure 97/63 on Levophed. Atrial fibrillation is seen on the monitor. HEENT: He is ashen. Mucosa is moist. NECK: Supple. Jugular veins are difficult to appreciate. The neck is webb. There is no stridor. CARDIOVASCULAR: Heart sounds are irregularly irregular. RESPIRATORY: Breath sounds are diminished globally with crepitants rales in the bases and some dullness in the right lateral chest. No fremitus. ABDOMEN: Soft and obese. EXTREMITIES: Cool. DIAGNOSTIC STUDIES: His white cell count is 0.7. Differential white cell count earlier showed 3.2% neutrophils. Hemoglobin is 10, hematocrit 32, platelet count 47,000. His electrolytes are sodium 137, potassium 4.3, chloride 108, CO2 of 16, BUN 58, creatinine 2.79 up from 2.1 over the past 12 hours. His glucose is 117, calcium 5.8, and an albumin of 2.7. His magnesium is 1.8. Lactic acid 4.3. His AST is 2085, ALT 2472. Arterial blood gases just performed showed a pH of 7.21, pCO2 of 27, pO2 of 88. His PT is 24, INR 2.16. Cultures are pending. Chest x-ray shows cardiomegaly, prominence of the interstitium, and a new right middle lobe infiltrate. ASSESSMENT AND PLAN: The primary problem requiring critical attention is septic shock. Levophed is being titrated to a mean arterial pressure of 60. Neutropenia secondary to chemotherapy. Precautions are in place. Neupogen has been ordered. Right middle lobe pneumonia. Given his profound neutropenia, Cefepime and vancomycin are appropriate choices. I will down dose the Cefepime based on a very low creatinine clearance. Acute kidney injury. We will continue to monitor urine output and renal indices. Shock liver. Transaminases are elevated. Will continue to monitor. I would hope for some improvement with improved perfusion. Cardiac ischemia. His troponin is up at 2.3; however, this may have been related to the events earlier in the morning. He is not experiencing acute chest pain at this point. His monitor shows atrial fibrillation. Cardiology has been engaged in the care of the patient and is assisting with rate and rhythm control concerns. Metastatic lung cancer status post radiation therapy and [place] chemotherapy. Prognosis is poor. Chronic obstructive pulmonary disease (COPD). Initiate bronchodilator therapy. Deep vein thrombosis (DVT) prophylaxis. His platelet count is low; however, his risk for DVT is significant. We will initiate low-dose subcutaneous heparin and sequential hose. Ulcer prophylaxis is being addressed with Protonix. I have discussed the patients case at bedside with the attending hospitalist. His condition is critical and prognosis is poor given the multisystem organ failure. One hour and 37 minutes was spent in the provision of bedside critical care and coordination, exclusive of any procedure time. [facility]ITAL[facility]
[2020-07-24 12:08] LABS: URIC ACID 11.9 MG/DL (3.5-7.2)
[2020-07-24] MEDS ORDERED: CEFEPIME HCL 0.5 GM in D5W 50 ML IV SCH (14:00)
[2020-07-24] MEDS ORDERED: NS 1,000 ML IV SCH (14:15)
[2020-07-24] MEDS ORDERED: SODIUM CHLORIDE 0.9% 1000ML IV ONE (14:15)
[2020-07-24] MEDS ORDERED: allopurinoL 100 MG TAB PO SCH (15:00)
[2020-07-24] MEDS ORDERED: LIDOCAINE W/EPINEPHRINE 1% 20ML VIAL As Ordered ONE (15:07)
--- NOTE | 2020-07-24 15:50 | CR.PDOC ---
General Date of Consultation: Jul 24, 2020 Consultation Vascular surgery REASON FOR CONSULTATION/CHIEF COMPLAINT: PermCath placement HISTORY OF PRESENT ILLNESS: The patient is a 65-year-old male admitted to hospitalist 07/23/20 diagnosed with lung cancer with metastatic lesions to the brain, and bones. Vascular is consulted for emergent dialysis catheter placement. History is taken from the chart. ALLERGIES: Please see below. HOME MEDICATIONS: Please see below. 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 PHYSICAL EXAMINATION: VITAL SIGNS: Please see below. GENERAL APPEARANCE: Ill-appearing. LABORATORY DATA: Please see below. ASSESSMENT/PLAN: Vascular surgery consulted for emergent right IJ PermCath placement. The procedure, risks, benefits and alternatives were explained to the family and consent obtained. Right IJ catheter was emergently placed as per Dr. Brownlee at the bedside. Chest x-ray to confirm placement is pending at this time. Dr. Brownlee will place order if okay to use her catheter once chest x-ray is obtained and reviewed. Vital Signs/I&O Vital Signs Date Time Temp Pulse Resp B/P (MAP) Pulse Ox O2 Delivery O2 Flow Rate FiO2 07/24/20 15:20 90 26 90/55 95 High Flow Cannula 8.0 07/24/20 12:00 97.5 07/23/20 22:05 86 I&O- Last 24 Hours up to 6 AM 07/24/20 06:00 Intake Total 1640 ml Output Total 95 ml Balance 1545 ml Laboratory Data Labs 24H Laboratory Tests 2 07/23/20 21:02: POC Glucose (Misc Panel) 126H, POC Sodium (Misc Panel) 137, POC Potassium (Misc Panel) 4.8, POC Chloride (Misc Panel) 108, POC Total CO2 (Misc Panel) 13.0L, POC Blood Urea Nitrogen (Misc Panel 52H, POC Ionized Calcium (Misc Panel) 3.9L, POC Creatinine (Misc Panel) 2.0H, POC Hematocrit (Misc Panel) 34.0L 07/23/20 21:04: Immature Granulocyte % (Auto) 0.0, Neutrophils (%) (Auto) 3.2L, Lymphocytes (%) (Auto) 90.3H, Monocytes (%) (Auto) 6.5H, Eosinophils (%) (Auto) 0.0, Basophils (%) (Auto) 0.0, Neutrophils # (Auto) 0.0L, Lymphocytes # (Auto) 0.6L, Monocytes # (Auto) 0.0, Eosinophils # (Auto) 0.0, Basophils # (Auto) 0.0, Nucleated Red Blood Cells % (auto) 0.0, Immature Platelet Fraction 3.6, Anion Gap 12, Glomerular Filtration Rate 33.2L, Osmolality 302H, Calcium Level 6.3L, Phosphorus Level 1.5L, Magnesium Level 2.0, Total Bilirubin 1.9H, Direct Bilirubin 1.3H, Aspartate Amino Transf (AST/SGOT) 245H, Alanine Aminotransferase (ALT/SGPT) 410H, Alkaline Phosphatase 231H, Total Creatine Kinase 73, Creatine Kinase MB 2.7, Creatine Kinase MB Relative Index 3.70, Troponin I 0.13H, IX-Oex-N-Type Natriuretic Peptide 60832O, Total Protein 5.7L, Albumin 2.9L, Albumin/Globulin Ratio 1.0, Lipase 138, Thyroid Stimulating Hormone (TSH) 0.848, Free Thyroxine 1.21 07/23/20 21:05: Prothrombin Time 21.3H, Prothromb Time International Ratio 1.80, Activated Partial Thromboplast Time 30.3, Fibrinogen 471H 07/23/20 21:39: Lactic Acid Level 8.2*H 07/23/20 23:59: Methicillin-Resist S.aureus DNA PCR NOT DETECTED 07/24/20 00:05: Blood Gas Bicarbonate Standard 10.9, Venous Blood pH 7.062L, Venous Blood Partial Pressure CO2 41.3, Venous Blood Partial Pressure O2 96.6H, Venous Blood Total Carbon Dioxide 12.8L, Venous Blood HCO3 11.5L, Venous Blood Oxygen Saturation 94.6H, Venous Blood Base Excess -18.0L 07/24/20 00:40: Urine Color DUYEN, Urine Appearance HAZY, Urine pH 6.0, Urine Specific [place] 1.019, Urine Protein 2+H, Urine Glucose (Auto)(UA) NEGATIVE, Urine Ketones (Auto) NEGATIVE, Urine Blood NEGATIVE, Urine Nitrite NEGATIVE, Urine Bilirubin NEGATIVE, Urine Urobilinogen 2.0H, Urine Leukocyte Esterase (Auto) NEGATIVE, Urine WBC (Auto) 3, Urine RBC (Auto) 1, Urine Hyaline Casts (Auto) 0, Urine Bacteria (Auto) NEGATIVE, Urine Squamous Epithelial Cells 0, Urine Sperm (Auto) , Urine Random Osmolality 645, Urine Random Creatinine 129.0, Urine Random Sodium < 10, Urine Random Potassium 23.3 07/24/20 02:26: Lactic Acid Level 4.9*H, Ammonia 52H, Total Creatine Kinase 255#, Creatine Kinase MB 9.8H, Creatine Kinase MB Relative Index 3.84, Troponin I 1.51#H 07/24/20 04:47: Nucleated Red Blood Cells % (auto) 5.9H, Prothrombin Time 24.6H, Prothromb Time International Ratio 2.16, Anion Gap 13, Glomerular Filtration Rate 24.6L, Calcium Level 5.8*L, Phosphorus Level 4.0#, Magnesium Level 1.8, Total Bilirubin 2.4H, Aspartate Amino Transf (AST/SGOT) 2085H, Alanine Aminotransferase (ALT/SGPT) 2472H, Alkaline Phosphatase 210H, Total Protein 5.2L, Albumin 2.7L, Albumin/Globulin Ratio 1.1, 25-Hydroxy Vitamin D Total 21.5L, Parathyroid Hormone (Intact) 492.7H 07/24/20 07:28: Blood Gas Bicarbonate Standard 12.4L, Arterial Blood pH 7.210*L, Arterial Blood Partial Pressure CO2 27.2L, Arterial Blood Partial Pressure O2 88.0, Arterial Blood Total CO2 11.5L, Arterial Blood HCO3 10.6L, Arterial Blood Base Excess - 15.7L, Arterial Blood Oxygen Saturation 95.5 07/24/20 07:47: Lactic Acid Followup at 4 Hours 4.3*H, Whole Blood Ionized Calcium 3.7L, Total Creatine Kinase 482#H, Creatine Kinase MB 17.2H, Creatine Kinase MB Relative Index 3.57, Troponin I 2.38#*H 07/24/20 10:03: Nucleated Red Blood Cells % (auto) 7.7H, Anion Gap 12, Glomerular Filtration Rate 22.4L, Calcium Level 6.4L, Magnesium Level 1.8, Total Bilirubin 3.2H, Aspartate Amino Transf (AST/SGOT) 2062H, Alanine Aminotransferase (ALT/SGPT) 2694H, Alkaline Phosphatase 218H, Total Protein 5.5L, Albumin 2.9L, Albumin/Globulin Ratio 1.1, Immature Granulocyte % (Auto) 0.0, Neutrophils (%) (Auto) 16.6L, Lymphocytes (%) (Auto) 74.4H, Monocytes (%) (Auto) 9.0H, Eosinophils (%) (Auto) 0.0, Basophils (%) (Auto) 0.0, Neutrophils # (Auto) 0.1L, Lymphocytes # (Auto) 0.6L, Monocytes # (Auto) 0.1, Eosinophils # (Auto) 0.0, Basophils # (Auto) 0.0, Uric Acid 11.9H 07/24/20 15:09: CBC/BMP Laboratory Tests 07/23/20 21:04 07/24/20 04:47 07/24/20 10:03 Microbiology Microbiology 07/24/20 Gram Stain - Final, Complete 07/24/20 Sputum Culture - Final, Complete 07/23/20 Blood Culture, Received Pending 07/23/20 Blood Culture, Received Pending Allergies Coded Allergies: No Known Allergies (Unverified , 08/24/18) Home Medications Scheduled Aspirin (Ecotrin) 81 Mg Tablet.dr, 81 MG PO DAILY, (Reported) Atorvastatin Calcium (Atorvastatin Calcium) 80 Mg Tablet, 80 MG PO QHS, (Reported) Ezetimibe (Ezetimibe) 10 Mg Tablet, 10 MG PO QHS, (Reported) Memantine HCl (Namenda) 10 Mg Tablet, 10 MG PO BID, (Reported) Multivitamins (Thera M Plus Tablet) 1 Each Tablet, 1 TAB PO DAILY, (Reported) Pantoprazole Sodium (Pantoprazole Sodium) 40 Mg Tablet.dr, 40 MG PO DAILY, (Reported) Temazepam (Temazepam) 15 Mg Capsule, 15 MG PO QHS, (Reported) Scheduled PRN Diphenoxylate HCl/Atropine (Lomotil 2.5-0.025 mg Tablet) 1 Each Tablet, 1 TAB PO BIDP PRN for diarrhea, #30 Furosemide (Furosemide) 40 Mg Tablet, 40 MG PO DAILY PRN for EDEMA, (Reported) Ondansetron HCl (Ondansetron HCl) 8 Mg Tablet, 1 TAB PO Q8HP PRN for NAUSEA, #30 Prochlorperazine Maleate (Prochlorperazine Maleate) 10 Mg Tablet, 1 TAB PO Q8HP PRN for NAUSEA for 30 Days, #40 Take 1 tablet po q 6 hours prn nausea unresponsive to Ondansatron Sera Cornell Jul 24, 2020 15:50
[2020-07-24 15:54] LABS: ALBUMIN 2.8 GM/DL (3.2-5.2); BILIRUBIN,TOTAL 3.8 MG/DL (0.2-1.0); CALCIUM LEVEL 6.3 MG/DL (8.8-10.2); CK-MB VALUE MASS 21.3 NG/ML (<3.6); CREATININE FOR GFR 3.46 MG/DL (0.70-1.30); GLOMERULAR FILTRATION RATE 19.2 (>49); MB/CK RELATIVE INDEX 3.07 (< OR =4); POTASSIUM SERUM 5.1 MEQ/L (3.5-5.1); TROPONIN I 2.53 NG/ML (< 0.10)
--- NOTE | 2020-07-24 15:55 | ROOPDOC ---
[facility] Report Of Operation Report of Operation DATE OF PROCEDURE: 07/24/20 PREPROCEDURE DIAGNOSES: Metastatic cancer and renal failure POSTPROCEDURE DIAGNOSES: Same PROCEDURE: 1. US guided access RIJ 2. Placement dual lumen permcath SURGEON: Ame Brownlee MD ANESTHESIA: local 5cc lidocaine INDICATION FOR PROCEDURE: Stage IV metastatic cancer with renal failure and respiratory distress, hemodynamically unstable. Family and patient want dialysis. Very urgent dialysis catheter placement at bedside. Consent obtained by hospitalist. REPORT OF OPERATION: Patient's right neck prepped and draped in a sterile fashion. Time out performed. Local anesthesia administered to neck and chest. US used to guide needle placement RIJ. Wire passed through this access and micro sheath placed. Wire exchanged for an 035 wire and sheath removed. 2 serial dilations performed over the wire using a seldinger technique. Catheter then advanced over the wire. Wire removed. Both ports arun back and flushed easily. Heparin locked and caps placed. Secured with two sutures at the neck. Sterile dressings applied. Patient's head of bed elevated. ESTIMATED BLOOD LOSS: Approximately 2 mL. COMPLICATIONS: Patient had bradycardia for a few seconds during procedure before wire placement, but spontaneously recovered, and said he felt ok so we proceeded to place the catheter. After we sat him up after the procedure, he said he was looking forward to seeing his family who were waiting outside the room. A few minutes later, he became bradycardic again while we were waiting and progressed to asystole. He is a DNR, and eventually . Family was at the bedside. AME BROWNLEE MD Jul 24, 2020 15:55
[2020-07-24] MEDS ORDERED: ATORVASTATIN 20 MG TAB PO SCH (21:00)
[2020-07-24] MEDS ORDERED: EZETIMIBE 10 MG TAB (ZETIA) PO SCH (21:00)
[2020-07-25] MEDS ORDERED: HEPARIN SOD (PORCINE) 5000UNITS/ML 1ML VIAL/SYRINGE SQ SCH (09:00)
--- NOTE | 2020-07-25 09:13 | ECGEPIP ---
[facility] Test Date: 2020-07-24 Pat Name: IFTIKHAR DUMONT Department: Room: [place] [address] Gender: Male Chemist Inorganic: : 1955 Requested By: LUZ MARIA CHATMAN Order Number: [id number] Reading MD: Curry Kwong Measurements Intervals [place] Rate: 99 P: 88 UT: 212 QRS: 11 QRSD: 145 T: 175 QT: 378 QTc: 486 Interpretive Statements SINUS RHYTHM WITH FIRST DEGREE AV BLOCK POSSIBLE LEFT ATRIAL ENLARGEMENT LEFT BUNDLE BRANCH BLOCK Electronically Signed on 07-25-2020 9:12:52 EDT by Curry Kwong
--- NOTE | 2020-07-25 14:24 | DS.PDOC ---
Discharge Summary General Date of Admission Jul 23, 2020 at 22:50 Date of Discharge 07/24/20 Discharge Summary PROCEDURES PERFORMED DURING STAY: [None]. ADMITTING DIAGNOSES: Severe Sepsis/neutropenic fever Metabolic encephalopathy HCAP, right middle lobe pneumonia Acute hypoxemic respiratory failure Rapid A. 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 fib. HOSPITAL COURSE: During hospital course following issue addressed Severe Sepsis/neutropenic fever Secondary to right middle lobe pneumonia and neutropenic fever Patient received treatment with cefepime IV, will re start vancomycin Metabolic encephalopathy Secondary to sepsis and acute hypoxemic respiratory failure Acute hypoxemic respiratory failure Secondary to sepsis and HCAP pneumonia, patient developed acute respiratory acidosis HCAP, right middle lobe pneumonia See above Rapid A. fib New onset of atrial fibrillation In the ER he was found to be in rapid afib w a HR in the 200s and was given metoprolol, but his BP dropped; after consultation with Dr.Roc Toño Bowman ordered amiodarone and digoxin. Per Toño Smith recommended c/w digoxin Q6H w amiodarone if needed Oral anticoagulation on hold due to thrombocytopenia Pancytopenia Secondary to chemotherapy and sepsis See above Elevated troponin/CAD / NSTEMI / s/p 4 vessel CABG Differential diagnosis includes demand ischemia versus non-STEMI. 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 DISCHARGE MEDICATIONS: Please see below. ALLERGIES: Please see below. PHYSICAL EXAMINATION ON DISCHARGE: VITAL SIGNS: Please see below. GENERAL: HEENT: NECK: CARDIOVASCULAR EXAMINATION: RESPIRATORY EXAMINATION: ABDOMINAL EXAMINATION: EXTREMITIES: SKIN: NEUROLOGICAL EXAMINATION: PSYCHIATRIC EXAMINATION: LABORATORY DATA: Please see below. IMAGING: PROGNOSIS: ACTIVITY: [As tolerated]. DIET: DISCHARGE PLAN: DISPOSITION: 20 . DISCHARGE INSTRUCTIONS: 1. . ITEMS TO FOLLOWUP ON ON OUTPATIENT: 1. . DISCHARGE CONDITION: [Stable]. TIME SPENT ON DISCHARGE: Greater than minutes. Vital Signs/I&Os Vital Signs Date Time Temp Pulse Resp B/P (MAP) Pulse Ox O2 Delivery O2 Flow Rate FiO2 07/24/20 15:43 0 07/24/20 15:30 26 100/59 (73) 96 High Flow Cannula 8.0 07/24/20 12:00 97.5 07/23/20 22:05 86 I&O- Last 24 Hours up to 6 AM 07/25/20 05:59 Intake Total 1642.5 ml Output Total 125 ml Balance 1517.5 ml Laboratory Data Labs 24H Laboratory Tests 2 07/24/20 15:09: Anion Gap 12, Glomerular Filtration Rate 19.2L, Calcium Level 6.3L, Total Bilirubin 3.8H, Aspartate Amino Transf (AST/SGOT) 1837H, Alanine Aminotransferase (ALT/SGPT) 2705H, Alkaline Phosphatase 217H, Total Creatine Kinase 694H, Creatine Kinase MB 21.3H, Creatine Kinase MB Relative Index 3.07, Troponin I 2.53*H, Total Protein 6.0L, Albumin 2.8L, Albumin/Globulin Ratio 0.9 07/25/20 11:20: Lab Scanned Report Miscellaneous Lab CBC/BMP Laboratory Tests 07/24/20 15:09 Microbiology Microbiology 07/24/20 Gram Stain - Final, Complete 07/24/20 Sputum Culture - Final, Complete 07/23/20 Blood Culture - Preliminary, Resulted No growth after 24 hours . All specim... 07/23/20 Blood Culture - Preliminary, Resulted No growth after 24 hours . All specim... Discharge Medications Scheduled Aspirin (Ecotrin) 81 Mg Tablet.dr, 81 MG PO DAILY, (Reported) Atorvastatin Calcium (Atorvastatin Calcium) 80 Mg Tablet, 80 MG PO QHS, (Repor neto) Ezetimibe (Ezetimibe) 10 Mg Tablet, 10 MG PO QHS, (Reported) Memantine HCl (Namenda) 10 Mg Tablet, 10 MG PO BID, (Reported) Multivitamins (Thera M Plus Tablet) 1 Each Tablet, 1 TAB PO DAILY, (Reported) Pantoprazole Sodium (Pantoprazole Sodium) 40 Mg Tablet.dr, 40 MG PO DAILY, (Reported) Temazepam (Temazepam) 15 Mg Capsule, 15 MG PO QHS, (Reported) Scheduled PRN Diphenoxylate HCl/Atropine (Lomotil 2.5-0.025 mg Tablet) 1 Each Tablet, 1 TAB PO BIDP PRN for diarrhea Furosemide (Furosemide) 40 Mg Tablet, 40 MG PO DAILY PRN for EDEMA, (Reported) Ondansetron HCl (Ondansetron HCl) 8 Mg Tablet, 1 TAB PO Q8HP PRN for NAUSEA Prochlorperazine Maleate (Prochlorperazine Maleate) 10 Mg Tablet, 1 TAB PO Q8HP PRN for NAUSEA Take 1 tablet po q 6 hours prn nausea unresponsive to Ondansatron Allergies Coded Allergies: No Known Allergies (Unverified , 08/24/18) LUZ MARIA CHATMAN DO Jul 25, 2020 14:24
--- NOTE | 2020-07-26 13:41 | REP ---
INDICATION: ROLNAD COMPARISON: 09/17/2019 TECHNIQUE: Real time young scale ultrasound examination using curved array transducer. FINDINGS: The bilateral kidneys are relatively normal in reniform shape and demonstrate increased central sinus fat consistent with age related medical renal disease. Right kidney measures 12.1 x 6.3 x 6.1 cm without hydronephrosis, cystic or renal mass lesion. Left kidney measures 10.9 x 5.5 x 6.3 cm without hydronephrosis, cystic or renal mass lesion. Somers catheter identified within partially collapsed bladder. IMPRESSION: 1. Findings consistent with chronic medical renal disease as described above. <Electronically signed by Adam Nguyễn > 07/26/20 [id number]
[2020-07-27 12:06] LABS: BODY FLUID CULTURE Not indicated. (.); LEGIONELLA ANTIGEN URINE Negative (Negative); ORGANISM ID Not indicated. (.); SPECIMEN SOURCE Urine (.); URINE STREP PNEUMONIAE ANTIGEN Negative (Negative)
[2020-07-29] MEDS ORDERED: ONDA8TAB10 PO (18:11)
== END 2020-07-24 15:43 | disposition expired | DRG 720 ==
LOC: M ED 20:36 → M ED INP 22:50 → ENRESERV 23:19 → M ICU 07-24 00:15
PROVIDERS: ADMIT Internal Medicine; ATTEND Internal Medicine
DX: A41.9 Sepsis, unspecified organism (principal); K72.00 Acute and subacute hepatic failure without coma; I21.4 Non-ST elevation (NSTEMI) myocardial infarction; J96.01 Acute respiratory failure with hypoxia; R65.21 Severe sepsis with septic shock; C79.31 Secondary malignant neoplasm of brain; E83.51 Hypocalcemia; D61.810 Antineoplastic chemotherapy induced pancytopenia; J18.9 Pneumonia, unspecified organism; I50.23 Acute on chronic systolic (congestive) heart failure; G93.41 Metabolic encephalopathy; N17.9 Acute kidney failure, unspecified; D70.9 Neutropenia, unspecified; C79.51 Secondary malignant neoplasm of bone; I48.91 Unspecified atrial fibrillation; C34.90 Malignant neoplasm of unspecified part of unspecified bronchus or lung; Z51.5 Encounter for palliative care; E66.9 Obesity, unspecified; J44.9 Chronic obstructive pulmonary disease, unspecified; Z79.82 Long term (current) use of aspirin; Z79.899 Other long term (current) drug therapy